=== PATIENT | male | born 1935 ===

== ENCOUNTER 2024-03-23 02:23 | Outpatient (REF) | payer MEDICARE, SELFPAY ==
[2024-03-23 09:42] LABS: Anion Gap 12.6; Carbon Dioxide 30.1 mmol/L (21.0-32.0); Chloride 97 mmol/L (98-107); Potassium 3.7 mmol/L (3.5-5.1); Sodium 136 mmol/L (136-145)
[2024-03-23 10:14] LABS: BUN Creatinine Ratio 45.2; Calcium 9.9 mg/dL (8.5-10.1); Estimated GFR (African America 37 (>=60); Estimated GFR (Non-African Ame 30 (>=60); Glucose 109 mg/dL (74-106)
== END 2024-03-23 02:24 | disposition home or self-care (01) ==
LOC: LAB 02:23
PROVIDERS: PCP Family Medicine; Visit Provider Family Medicine
DX: N17.9 Acute kidney failure, unspecified (principal)
CPT/HCPCS: 36415; 80048

== ENCOUNTER 2024-03-26 14:31 | Outpatient (OUT) | payer MEDICARE, SELFPAY | END 2024-03-26 14:32 | disposition home or self-care (01) | LOC: WC 14:31 | PROVIDERS: PCP Family Medicine; Visit Provider Physician Assistant | DX: L97.812 Non-pressure chronic ulcer of other part of right lower leg with fat layer exposed (principal) | CPT/HCPCS: G0463 ==

== ENCOUNTER 2024-04-16 16:10 | Outpatient (OUT) | payer MEDICARE, SELFPAY ==
--- OUTSIDE RECORDS SUMMARY | 2024-04-16 16:29 | XMS_ITS | CCD ---
Author Organization [facility] Care Team Providers Care Nurse Practitioner Adult Name Role Phone Mata Sepulveda PA-C Primary Care Provider MATA SEPULVEDA Attending Unavailable MATA SEPULVEDA Referring Unavailable MATA SEPULVEDA Primary Care Unavailable MATA SEPULVEDA Attending Unavailable MATA SEPULVEDA Referring Unavailable MATA SEPULVEDA Primary Care Unavailable MATA SEPULVEDA Attending Unavailable MATA SEPULVEDA Referring Unavailable WILVER, MATA Michael Primary Care Unavailable MATA SEPULVEDA Referring Unavailabl e SEPULVEDA, MATA FELIZ Primary Care Unavailabl e SEPULVEDAMATA Referring Unavailabl e SEPULVEDA, MATA FELIZ Primary Care Unavailabl e SEPULVEDA, MATA Michael Primary Care Unavailable RADHA VALLES Attending Unavailable WASHINGTON, SANTOSH Attending Unavailable SANTOSH VILA Referring Unavailable MATA SEPULVEDA Primary Care Unavailable MATA SEPULVEDA Primary Care Unavailable GABY MICHAEL Attending Unavailable FRANCESCA BRIGGS Admitting Unavailable BRADLEY TRIPLETT Consulting Unavailable ONLY), [facility] (INPATIENT Consult ing Unavailable GABY MICHAEL Attending Unavailable GABY MICHAEL Referring Unavailable MATA SEPULVEDA Primary Care Unavailable HILARY ADORNO Attending Unavailable HILARY ADORNO Referring Unavailable MATA SEPULVEDA Primary Care Unavailable HILARY ADORNO Attending Unavailable HILARY ADORNO Referring Unavailable MATA SEPULVEDA Primary Care Unavailable HILARY ADORNO Attending Unavailable HILARY ADORNO Referring Unavailable MATA SEPULVEDA Primary Care Unavailable VINCENT ROSADO Attending Unavailable MATA SEPULVEDA Referring Unavailable MATA SEPULVEDA Primary Care Unavailable Medications Current Medications Medication Drug Class(es) Dates Sig (Normalized) Sig (Original) amLODIPine 5 mg oral tablet (4 sources) Dihydropyridine Calcium Channel Nevaeh Start: 09-28-2023 take 1 tablet by mouth in the morning amLODIPine (NORVASC) 5 mg tablet Indications: Essential hypertension Take 1 tablet (5 mg total) by mouth in the morning. 30 tablet 5 08/11/2023 Active blood pressure monitor kit (3 sources) Start: 07-30-2022 blood pressure monitor kit 1 each by miscellaneous route in the morning and at bedtime for 30 days. 1 each 0 07/30/2022 Active folic acid/multivit-mi n/lutein (CENTRUM SILVER ORAL) (4 sources) take 1 tablet by mouth once in the morning folic acid/multivit-min/l utein (CENTRUM SILVER ORAL) Take 1 tablet by mouth in the morning. 0 Active furosemide 20 mg oral tablet (5 sources) Loop Diuretic Start: 11-28-2023 take 2 tablets by mouth once daily as needed furosemide (LASIX) 20 mg tablet Indications: Bilateral leg edema Take 2 tablets (40 mg total) by mouth daily as needed (swelling of ankles). 60 tablet 2 11/28/2023 Active Start: 08-11-2023 End: 11-28-2023 take 1 tablet by mouth once daily as needed furosemide (LASIX) 20 mg tablet Take 1 tablet (20 mg total) by mouth daily as needed (swelling of ankles). 30 tablet 2 08/11/2023 11/28/2023 Discontinued (Reorder) magnesium hydroxide 80 mg/ml oral suspension (4 sources) take 30 mL by mouth once daily as needed magnesium hydroxide (MILK OF MAGNESIA) 400 mg/5 mL suspension Take 30 mL by mouth nightly as needed. 0 Active metoprolol tartrate 50 mg oral tablet (4 sources) beta-Adrenergic Nevaeh Start: 10-21-20 take 1 tablet by mouth in the morning metoprolol tartrate (LOPRESSOR) 50 mg tablet TAKE 1 TABLET BY MOUTH IN THE MORNING AND 1 TABLET BEFORE BEDTIME 180 tablet 1 10/21/2023 Active polyethylene glycol 3350 73636 mg powder for oral solution (4 sources) Osmotic Laxative Start: 04-05-20 polyethylene glycol (GLYCOLAX) 17 gram packet Take 17 g by mouth daily as needed (constipation). 30 packet 0 04/05/2023 Active pravastatin sodium 40 mg oral tablet (5 sources) HMG-CoA Reductase Inhibitor Start: 05-05-20 End: 11-15-19 24 take 1 tablet by mouth in the morning pravastatin (PRAVACHOL) 40 mg tablet TAKE 1 TABLET BY MOUTH IN THE MORNING 90 tablet 3 11/15/2023 Active QUEtiapine 50 mg oral tablet (9 sources) Atypical Antipsychotic Start: 08-11-20 23 End: 04-24-20 24 take 1 tablet by mouth once daily QUEtiapine (SEROquel) 50 mg tablet TAKE ONE TABLET BY MOUTH ONCE NIGHTLY 90 tablet 1 01/25/2024 04/24/2024 Active Start: 08-11-2023 End: 01-25-2024 take 1 tablet by mouth once daily at breakfast QUEtiapine (SEROQUEL) 25 mg tablet Take 1 tablet (25 mg total) by mouth daily with breakfast. 30 tablet 5 08/11/2023 01/25/2024 Discontinued (Alternate therapy) Completed/Discontinued Medications Medication Drug Class(es) Dates Sig (Normalized) Sig (Original) lisinopril 40 mg oral tablet (1 source) Angiotensin Converting Enzyme Inhibitor Start: 10-27-2023 End: 11-10-2023 take 1 tablet by mouth in the morning lisinopriL (PRINIVIL,ZESTRIL) 40 mg tablet Indications: Essential hypertension TAKE 1 TABLET BY MOUTH IN THE MORNING 90 tablet 3 10/27/2023 11/10/2023 Discontinued (Therapy completed) Problems Active Problems Problem Classification Problem Date Documented Da te Episodic/Chronic Acute and unspecified renal failure (9 sources) Acute injury of kidney; Translations: [Acute kidney failure, unspecified] Onset: 06-13-2022 Resolved: 12-02-2022 03-30-2023 Episodic Acute myocardial infarction (4 sources) Myocardial infarction; Translations: [Non-ST elevation (NSTEMI) myocardial infarction] Onset: 07-16-2022 07-16-2022 Chronic Chronic kidney disease (1 source) Chronic kidney disease stage 3B ; Translations: [Stage 3b chronic kidney disease (CMS-HCC)] 11-28-2023 Chronic Chronic kidney disease (2 sources) Chronic kidney disease; Translations: [Chronic kidney disease, stage 3b] Onset: 11-28-2023 Delirium, dementia, and amnestic and other cognitive disorders (8 sources) Dementia with behavioral disturbance; Translations: [Dementia with behavioral disturbance] Onset: 07-16-2022 07-16-2022 Chronic Disorders of lipid metabolism (6 sources) Hyperlipidemia; Translations: [Hyperlipidemia, unspecified] Onset: 09-03-2015 06-20-2022 Chronic Essential hypertension (7 sources) Essential hypertension; Translations: [Essential (primary) hypertension] Onset: 09-03-2015 06-20-2022 Chronic Open wounds of extremities (3 sources) Unspecified open wound, right lower leg, initial encounter; Translations: [Unspecified open wound, right lower leg, initial encounter] Onset: 03-14-2024 Episodic Other connective tissue disease (1 source) Leg swelling symptom Onset: 03-14-2024 Episodic Other lower respiratory disease (1 source) Dyspnea on exertion; Translations: [Other forms of dyspnea] 11-10-2023 Episodic Other nervous system disorders (5 sources) Disorder of brain; Translations: [Encephalopathy, unspecified] Onset: 06-20-2022 06-20-2022 Chronic Other nervous system disorders (1 source) Encephalopathy, unspecified; Translations: [Encephalopathy, unspecified] Onset: 06-20-2022 Chronic Peripheral and visceral atherosclerosis (9 sources) Peripheral vascular disease; Translations: [Atherosclerosis of [place] arteries of extremities with intermittent claudication, unspecified extremity] Onset: 03-15-2017 06-20-2022 Chronic Pulmonary heart disease (5 sources) Pulmonary hypertension, unspecified; Translations: [Other chronic pulmonary heart diseases] Onset: 01-28-2022 06-20-2022 Chronic Residual codes; unclassified (2 sources) Bilateral lower limb edema; Translations: [Localized edema] 11-10-2023 Episodic Residual codes; unclassified (3 sources) Localized edema; Translations: [Localized edema] Onset: 03-14-2024 Episodic Residual codes; unclassified (1 source) Edema, unspecified; Translations: [Edema, unspecified] Onset: 03-15-2024 Episodic Skin and subcutaneous tissue infections (5 sources) Local infection of the skin and subcutaneous tissue, unspecified; Translations: [Cellulitis, unspecified] Onset: 03-14-2024 Episodic Unclassified (1 source) Unspecified dementia, unspecified severity, with other behavioral disturbance; Translations: [Unspecified dementia, unspecified severity, with other behavioral disturbance] Onset: 07-16-2022 Unclassified (1 source) medicare wellness Onset: 11-28-2023 Unclassified (1 source) Wound Check Onset: 03-30-2024 Past or Other Problems Problem Classification Problem Date Documented Date Episodic/Chronic Malaise and fatigue (4 sources) Asthenia; Translations: [Weakness] Onset: 07-16-2022 Resolved: 08-10-2022 08-10-2022 Episodic Mood disorders (4 sources) Mood disorders Onset: 05-05-2023 Resolved: 11-28-2023 05-05-2023 Nonspecific chest pain (4 sources) Chest pain; Translations: [Chest pain, unspecified] Onset: 11-10-2023 11-10-2023 Episodic Nutritional deficiencies (4 sources) Nutritional marasmus; Translations: [Unspecified severe protein-calorie malnutrition] Onset: 06-15-2022 Resolved: 11-25-2022 11-25-2022 Chronic Other connective tissue disease (1 source) Other specified soft tissue disorders; Translations: [Other specified soft tissue disorders] Onset: 11-10-2023 Episodic Other screening for suspected conditions (not mental disorders or infectious disease) (6 sources) Electrocardiogram abnormal; Translations: [Abnormal electrocardiogram [ECG] [EKG]] Onset: 10-22-2021 10-22-2021 Episodic Residual codes; unclassified (4 sources) History of colonoscopy; Translations: [Other specified postprocedural states] Onset: 04-06-2016 06-07-2019 Episodic Screening and history of mental health and substance abuse codes (4 sources) Personal history of nicotine dependence; Translations: [Personal history of tobacco use] Onset: 09-03-2015 06-07-2019 Episodic Results Test Name Value Interpretation Reference Range Facility CBC AND AUTO DIFFon 03-19-20 ABSOLUTE BASOPHIL 0.1 X10E9/L Normal 0.0-0.2 [facility] Comment on above: Performed By: #### C BCA, CMP, 09337-5, 02761-7, 79525-5 #### [facility] ([id number]) [address] [place] [address], [place] [address] ABSOLUTE NEUTROPHIL 4.9 X10E9/L Normal 1.5-6.6 [facility] Comment on above: Performed By: #### C BCA, CMP, 19249-3, 29628-2, 02756-8 #### [facility] ([id number]) [address] [place] [address] 57039 Basophils/100 WBC (Bld) 1.2 % Normal [facility] Comment on above: Performed By: #### C BCA, CMP, 24054-5, 61178-3, 65375-3 #### [facility] ([id number]) [address] [place] [address] 44123 Eosinophils (Bld) [#/Vol] 0.2 10*3/uL Normal 0.0-0.4 [facility] Comment on above: Performed By: #### C BCA, CMP, 76767-0, 00509-7, 77487-3 #### [facility] ([id number]) [address] [place] [address] 13052 Eosinophils/100 WBC (Bld) 1.8 % Normal [facility] Comment on above: Performed By: #### C BCA, CMP, 89353-6, 17421-1, 21994-2 #### [facility] ([id number]) [address] [place] [address] 58847 Erythrocyte distribution width (RBC) [Ratio] 13.6 % Normal 11.5-15.0 [facility] Comment on above: Performed By: #### C BCA, CMP, 13532-7, 87124-4, 53363-3 #### [facility] ([id number]) [address] [place] [address] 89209 Hematocrit (Bld) [Volume fraction] 42.8 % Normal 39-49 [facility] Comment on above: Performed By: #### C BCA, CMP, 24241-8, 02460-9, 92601-7 #### [facility] ([id number]) [address] [place] [address] 22069 Hemoglobin (Bld) [Mass/Vol] 14.7 g/dL Normal 13.0-17.0 [facility] Comment on above: Performed By: #### C BCA, CMP, 36702-3, 59707-2, 61684-9 #### [facility] ([id number]) [address] [place] [address] 91348 Lymphocytes (Bld) [#/Vol] 3.4 10*3/uL Normal 1.0-3.5 [facility] Comment on above: Performed By: #### C BCA, CMP, 22867-9, 22331-7, 13491-4 #### [facility] ([id number]) [address] [place] [address] 12698 Lymphocytes/100 WBC (Bld) 34.4 % Normal [facility] Comment on above: Performed By: #### C BCA, CMP, 54394-7, 33295-6, 48574-9 #### [facility] ([id number]) [address] [place] [address] 32453 MCH (RBC) [Entitic mass] 31.4 pg Normal 27-34 [facility] Comment on above: Performed By: #### C BCA, CMP, 98679-2, 35092-2, 81575-5 #### [facility] ([id number]) [address] [place] [address] 86984 MCHC (RBC) [Mass/Vol] 34.5 g/dL Normal 32-36 [facility] Comment on above: Performed By: #### C BCA, CMP, 72889-0, 18139-4, 30489-8 #### [facility] ([id number]) [address] [place] [address] 01452 MCV (RBC) [Entitic vol] 91 fL Normal 80-100 [facility] Comment on above: Performed By: #### C BCA, CMP, 86902-6, 97764-7, 22722-3 #### [facility] ([id number]) [address] [place] [address] [place] [address] Monocytes (Bld) [#/Vol] 1.2 10*3/uL High 0-0.9 [facility] Comment on above: Performed By: #### C BCA, CMP, 26640-9, 17217-7, 93298-8 #### [facility] ([id number]) [address] [place] [address] 47106 Monocytes/100 WBC (Bld) 12.3 % Normal [facility] Comment on above: Performed By: #### C BCA, CMP, 38175-0, 85635-0, 72564-2 #### [facility] ([id number]) [address] [place] [address] 96264 Neutrophils/100 WBC (Bld) 50.3 % Normal [facility] Comment on above: Performed By: #### Vijaya BCA, CMP, 76684-6, 27967-6, 26444-5 #### [facility] ([id number]) [address] [place] [address] 29571 Platelet mean volume (Bld) [Entitic vol] 8.2 fL Normal 7-12 [facility] Comment on above: Performed By: #### C BCA, CMP, 29898-9, 76642-8, 82901-7 #### [facility] ([id number]) [address] [place] [address] 80578 Platelets (Bld) [#/Vol] 276 10*3/uL Normal 150-450 [facility] Comment on above: Performed By: #### C BCA, CMP, 01371-4, 74711-4, 05266-4 #### [facility] ([id number]) [address] [place] [address] 30887 RBC COUNT 4.69 X10E12/L Normal 4.10-5.70 [facility] Comment on above: Performed By: #### C BCA, CMP, 41533-5, 39557-5, 11538-4 #### [facility] ([id number]) [address] [place] [address] 72585 WBC (Bld) [#/Vol] 9.8 10*3/uL Normal 4.0-11.0 [facility] Comment on above: Performed By: #### C BCA, CMP, 51582-6, 83054-3, 83532-0 #### [facility] ([id number]) [address] [place] [address] 80894 COMPREHENSIVE METABOLIC PANE Arthur 03-19-2024 Albumin [Mass/Vol] 3.8 g/dL Normal 3.2-5.3 [facility] Comment on above: Performed By: #### C BCA, CMP, 42267-5, 68056-0, 68059-3 #### [facility] ([id number]) [address] [place] [address] 40718 ALP [Catalytic activity/Vol] 104 U/L Normal 39-130 [facility] Comment on above: Performed By: #### C BCA, CMP, 54793-1, 57093-5, 21504-0 #### [facility] ([id number]) [address] [place] [address] 91629 ALT [Catalytic activity/Vol] 20 U/L Normal 0-40 [facility] Comment on above: Performed By: #### C BCA, CMP, 61525-7, 67839-6, 88066-7 #### [facility] ([id number]) [address] [place] [address] 59038 Anion gap [Moles/Vol] 14 mmol/L Normal 5-15 [facility] Comment on above: Performed By: #### C BCA, CMP, 60307-8, 50390-9, 07513-3 #### [facility] ([id number]) [address] [place] [address] 27990 AST [Catalytic activity/Vol] 25 U/L Normal 0-41 [facility] Comment on above: Performed By: #### C BCA, CMP, 81125-4, 39389-7, 67174-2 #### [facility] ([id number]) [address] [place] [address] 04234 Bilirubin [Mass/Vol] 1.0 mg/dL Normal 0.3-1.2 [facility] Comment on above: Performed By: #### C BCA, CMP, 59613-6, 26109-8, 74946-7 #### [facility] ([id number]) [address] [place] [address] 80892 Calcium [Mass/Vol] 9.4 mg/dL Normal 8.5-10.5 [facility] Comment on above: Performed By: #### C BCA, CMP, 19993-3, 78630-7, 54951-4 #### [facility] ([id number]) [address] [place] [address] 12402 Chloride [Moles/Vol] 94 mmol/L Low 98-109 [facility] Comment on above: Performed By: #### C BCA, CMP, 44839-1, 44523-5, 41571-3 #### [facility] ([id number]) [address] [place] [address] 84930 CO2 [Moles/Vol] 29 mmol/L Normal 22-32 [facility] Comment on above: Performed By: #### C BCA, CMP, 07395-1, 49667-5, 85997-6 #### [facility] ([id number]) [address] [place] [address] 76234 Creatinine [Mass/Vol] 1.93 mg/dL High 0.70-1.20 [facility] Comment on above: Result Comment: METH OD TRACEABLE TO IDMS STANDARD Performed By: #### C BCA, CMP, 97544-3, 74995-5, 58555-9 #### [facility] ([id number]) [address] [place] [address] 61502 GFR/1.73 sq M.predicted among non-blacks MDRD (S/P/Bld) [Vol rate/Area] 33 mL/min/{1.73_m2} Low >59 [facility] Comment on above: Result Comment: Reported eGFR is based on the CKD-EPI 2020 equation that does not use a race coefficient. Performed By: #### C BCA, CMP, 63966-8, 68645-9, 92602-7 #### [facility] ([id number]) [address] [place] [address] 66505 Glucose [Mass/Vol] 111 mg/dL High 65-99 [facility] Comment on above: Performed By: #### C BCA, CMP, 73364-4, 02271-6, 18149-1 #### [facility] ([id number]) [address] [place] [address] 94456 Potassium [Moles/Vol] 3.6 mmol/L Normal 3.5-5.0 [facility] Comment on above: Performed By: #### C BCA, CMP, 09410-3, 81706-6, 21264-8 #### [facility] ([id number]) [address] [place] [address] 47652 Protein [Mass/Vol] 8.3 g/dL High 6.0-8.0 [facility] Comment on above: Performed By: #### C BCA, CMP, 32475-8, 68229-5, 51525-5 #### [facility] ([id number]) [address] [place] [address] 09442 Sodium [Moles/Vol] 137 mmol/L Normal 134-146 [facility] Comment on above: Performed By: #### C BCA, CMP, 12038-8, 65687-0, 16705-6 #### [facility] ([id number]) [address] [place] [address] 65898 Urea nitrogen [Mass/Vol] 64 mg/dL High 5-27 [facility] Comment on above: Performed By: #### C BCA, CMP, 31153-0, 04711-9, 69180-3 #### [facility] ([id number]) [address] [place] [address] 33952 MAGNESIUMon 03-19-2024 Magnesium [Mass/Vol] 2.2 mg/dL Normal 1.8-2.6 [facility] Comment on above: Performed By: #### C BCA, CMP, 79196-6, 34296-8, 16329-4 #### [facility] ([id number]) [address] [place] [address] 29198 CBC AND AUTO DIFFon 03-18-20 ABSOLUTE BASOPHIL 0.1 X10E9/L Normal 0.0-0.2 [facility] Comment on above: Performed By: #### C BCA, CMP, 90971-4, 18610-6, 47113-4 #### [facility] ([id number]) [address] [place] [address] 26563 ABSOLUTE NEUTROPHIL 6.6 X10E9/L Normal 1.5-6.6 [facility] Comment on above: Performed By: #### C BCA, CMP, 84760-2, 28436-8, 16904-5 #### [facility] ([id number]) [address] [place] [address] 28009 Basophils/100 WBC (Bld) 0.6 % Normal [facility] Comment on above: Performed By: #### C BCA, CMP, 31139-0, 24721-2, 43192-3 #### [facility] ([id number]) [address] [place] [address] 94811 Eosinophils (Bld) [#/Vol] 0.1 10*3/uL Normal 0.0-0.4 [facility] Comment on above: Performed By: #### C BCA, CMP, 71369-7, 31438-1, 25135-8 #### [facility] ([id number]) [address] [place] [address] 21299 Eosinophils/100 WBC (Bld) 1.1 % Normal [facility] Comment on above: Performed By: #### C BCA, CMP, 23884-7, 37683-4, 27125-7 #### [facility] ([id number]) [address] [place] [address] 73284 Erythrocyte distribution width (RBC) [Ratio] 13.7 % Normal 11.5-15.0 [facility] Comment on above: Performed By: #### C BCA, CMP, 37156-5, 07841-4, 61337-0 #### [facility] ([id number]) [address] [place] [address] 60739 Hematocrit (Bld) [Volume fraction] 44.0 % Normal 39-49 [facility] Comment on above: Performed By: #### C BCA, CMP, 73528-5, 26844-7, 81862-2 #### [facility] ([id number]) [address] [place] [address] 32431 Hemoglobin (Bld) [Mass/Vol] 14.9 g/dL Normal 13.0-17.0 [facility] Comment on above: Performed By: #### C BCA, CMP, 77414-8, 92605-4, 02375-9 #### [facility] ([id number]) [address] [place] [address] 81599 Lymphocytes (Bld) [#/Vol] 4.0 10*3/uL High 1.0-3.5 [facility] Comment on above: Performed By: #### C BCA, CMP, 75614-0, 51863-2, 98066-1 #### [facility] ([id number]) [address] [place] [address] 66331 Lymphocytes/100 WBC (Bld) 32.4 % Normal [facility] Comment on above: Performed By: #### C BCA, CMP, 00428-7, 40400-4, 03910-2 #### [facility] ([id number]) [address] [place] [address] 98293 MCH (RBC) [Entitic mass] 30.8 pg Normal 27-34 [facility] Comment on above: Performed By: #### C BCA, CMP, 96737-6, 78142-0, 82196-0 #### [facility] ([id number]) [address] [place] [address] 72399 MCHC (RBC) [Mass/Vol] 33.8 g/dL Normal 32-36 [facility] Comment on above: Performed By: #### Vijaya BCA, CMP, 08776-2, 15969-6, 99729-5 #### [facility] ([id number]) [address] [place] [address] 34679 MCV (RBC) [Entitic vol] 91 fL Normal 80-100 [facility] Comment on above: Performed By: #### Vijaya BCA, CMP, 95331-4, 89474-9, 64019-4 #### [facility] ([id number]) [address] [place] [address] 52882 Monocytes (Bld) [#/Vol] 1.4 10*3/uL High 0-0.9 [facility] Comment on above: Performed By: #### Vijaya BCA, CMP, 47806-6, 31763-9, 34898-4 #### [facility] ([id number]) [address] [place] [address] 25631 Monocytes/100 WBC (Bld) 11.4 % Normal [facility] Comment on above: Performed By: #### Vijaya BCA, CMP, 61371-7, 15335-3, 83039-2 #### [facility] ([id number]) [address] [place] [address] 47428 Neutrophils/100 WBC (Bld) 54.5 % Normal [facility] Comment on above: Performed By: #### C BCA, CMP, 91554-2, 46485-8, 93984-0 #### [facility] ([id number]) [address] [place] [address] 03218 Platelet mean volume (Bld) [Entitic vol] 8.6 fL Normal 7-12 [facility] Comment on above: Performed By: #### C BCA, CMP, 54664-2, 79661-1, 98935-4 #### [facility] ([id number]) [address] [place] [address] 73458 Platelets (Bld) [#/Vol] 280 10*3/uL Normal 150-450 [facility] Comment on above: Performed By: #### C BCA, CMP, 93730-6, 91167-9, 28101-9 #### [facility] ([id number]) [address] [place] [address] 30449 RBC COUNT 4.84 X10E12/L Normal 4.10-5.70 [facility] Comment on above: Performed By: #### C BCA, CMP, 00902-4, 14451-5, 82301-7 #### [facility] ([id number]) [address] [place] [address] 38336 WBC (Bld) [#/Vol] 12.2 10*3/uL High 4.0-11.0 [facility] Comment on above: Performed By: #### C BCA, CMP, 09600-2, 53433-0, 70891-0 #### [facility] [facility] ([id number]) [address] [place] [address] 93139 COMPREHENSIVE METABOLIC PANE Arthur 03-18-2024 Albumin [Mass/Vol] 4.1 g/dL Normal 3.2-5.3 [facility] Comment on above: Performed By: #### C BCA, CMP, 91423-0, 84591-9, 88494-3 #### [facility] ([id number]) [address] [place] [address] 65714 ALP [Catalytic activity/Vol] 105 U/L Normal 39-130 [facility] Comment on above: Performed By: #### C BCA, CMP, 90507-2, 48375-6, 09704-2 #### [facility] ([id number]) [address] [place] [address] 67421 ALT [Catalytic activity/Vol] 17 U/L Normal 0-40 [facility] Comment on above: Performed By: #### C BCA, CMP, 12158-4, 96917-9, 99202-3 #### [facility] ([id number]) [address] [place] [address] 90977 Anion gap [Moles/Vol] 17 mmol/L High 5-15 [facility] Comment on above: Performed By: #### C BCA, CMP, 75056-0, 64487-9, 01578-4 #### [facility] ([id number]) [address] [place] [address] 72241 AST [Catalytic activity/Vol] 30 U/L Normal 0-41 [facility] Comment on above: Performed By: #### C BCA, CMP, 27920-2, 31553-3, 79514-5 #### [facility] ([id number]) [address] [place] [address] 67697 Bilirubin [Mass/Vol] 1.2 mg/dL Normal 0.3-1.2 [facility] Comment on above: Performed By: #### C BCA, CMP, 04641-0, 20692-3, 58116-2 #### [facility] ([id number]) [address] [place] [address] 40214 Calcium [Mass/Vol] 9.7 mg/dL Normal 8.5-10.5 [facility] Comment on above: Performed By: #### C BCA, CMP, 66050-3, 55583-1, 34316-1 #### [facility] ([id number]) [address] [place] [address] 99005 Chloride [Moles/Vol] 94 mmol/L Low 98-109 [facility] Comment on above: Performed By: #### C BCA, CMP, 77555-4, 70117-3, 95787-6 #### [facility] ([id number]) [address] [place] [address] 32132 CO2 [Moles/Vol] 29 mmol/L Normal 22-32 [facility] Comment on above: Performed By: #### C BCA, CMP, 42736-6, 18455-6, 64833-2 #### [facility] ([id number]) [address] [place] [address] 12849 Creatinine [Mass/Vol] 1.98 mg/dL High 0.70-1.20 [facility] Comment on above: Result Comment: METH OD TRACEABLE TO IDMS STANDARD Performed By: #### C BCA, CMP, 46560-0, 27555-0, 43785-7 #### [facility] ([id number]) [address] [place] [address] 53258 GFR/1.73 sq M.predicted among non-blacks MDRD (S/P/Bld) [Vol rate/Area] 32 mL/min/{1.73_m2} Low >59 [facility] Comment on above: Result Comment: Reported eGFR is based on the CKD-EPI 2020 equation that does not use a race coefficient. Performed By: #### C BCA, CMP, 43706-2, 02877-8, 26442-0 #### [facility] ([id number]) [address] [place] [address] 62352 Glucose [Mass/Vol] 124 mg/dL High 65-99 [facility] Comment on above: Performed By: #### C BCA, CMP, 10246-2, 30578-6, 43334-0 #### [facility] ([id number]) [address] [place] [address] 52684 Potassium [Moles/Vol] 4.3 mmol/L Normal 3.5-5.0 [facility] Comment on above: Performed By: #### C BCA, CMP, 20403-2, 53832-6, 16231-5 #### [facility] ([id number]) [address] [place] [address] 47435 Protein [Mass/Vol] 8.5 g/dL High 6.0-8.0 [facility] Comment on above: Performed By: #### C BCA, CMP, 75946-2, 06217-7, 00175-4 #### [facility] ([id number]) [address] [place] [address] 46210 Sodium [Moles/Vol] 140 mmol/L Normal 134-146 [facility] Comment on above: Performed By: #### C BCA, CMP, 18191-2, 06568-0, 62073-9 #### [facility] ([id number]) [address] [place] [address] 87611 Urea nitrogen [Mass/Vol] 57 mg/dL High 5-27 [facility] Comment on above: Performed By: #### C BCA, CMP, 65379-3, 37367-8, 50517-4 #### [facility] ([id number]) [address] [place] [address] 46159 MAGNESIUMon 03-18-2024 Magnesium [Mass/Vol] 2.1 mg/dL Normal 1.8-2.6 [facility] Comment on above: Performed By: #### C BCA, CMP, 77775-7, 46583-4, 07461-9 #### [facility] ([id number]) [address] [place] [address] 86515 CBC AND AUTO DIFFon 03-17-20 24 ABSOLUTE BASOPHIL 0.1 X10E9/L Normal 0.0-0.2 [facility] Comment on above: Performed By: #### C BCA, CMP, 95504-1, 63524-9, 54140-1 #### [facility] ([id number]) [address] [place] [address] 74495 ABSOLUTE NEUTROPHIL 4.5 X10E9/L Normal 1.5-6.6 [facility] Comment on above: Performed By: #### C BCA, CMP, 89709-8, 41948-4, 19794-6 #### [facility] ([id number]) [address] [place] [address] 64538 Basophils/100 WBC (Bld) 0.6 % Normal [facility] Comment on above: Performed By: #### C BCA, CMP, 34997-6, 84484-2, 01497-1 #### [facility] ([id number]) [address] [place] [address] 35338 Eosinophils (Bld) [#/Vol] 0.2 10*3/uL Normal 0.0-0.4 [facility] Comment on above: Performed By: #### C BCA, CMP, 26621-6, 46755-2, 02370-5 #### [facility] ([id number]) [address] [place] [address] 04819 Eosinophils/100 WBC (Bld) 2.3 % Normal [facility] Comment on above: Performed By: #### C BCA, CMP, 34604-4, 13572-2, 40079-3 #### [facility] ([id number]) [address] [place] [address] 21311 Erythrocyte distribution width (RBC) [Ratio] 13.9 % Normal 11.5-15.0 [facility] Comment on above: Performed By: #### C BCA, CMP, 27427-2, 88105-3, 53503-0 #### [facility] ([id number]) [address] [place] [address] 32916 Hematocrit (Bld) [Volume fraction] 40.3 % Normal 39-49 [facility] Comment on above: Performed By: #### C BCA, CMP, 66056-6, 07999-7, 01926-4 #### [facility] ([id number]) [address] [place] [address] 59565 Hemoglobin (Bld) [Mass/Vol] 13.8 g/dL Normal 13.0-17.0 [facility] Comment on above: Performed By: #### C BCA, CMP, 74353-9, 48820-6, 45787-4 #### [facility] ([id number]) [address] [place] [address] 13140 Lymphocytes (Bld) [#/Vol] 3.5 10*3/uL Normal 1.0-3.5 [facility] Comment on above: Performed By: #### C BCA, CMP, 31597-6, 60363-6, 78016-9 #### [facility] ([id number]) [address] [place] [address] 72024 Lymphocytes/100 WBC (Bld) 37.5 % Normal [facility] Comment on above: Performed By: #### C BCA, CMP, 00876-5, 56644-2, 40562-8 #### [facility] ([id number]) [address] [place] [address] 20611 MCH (RBC) [Entitic mass] 31.2 pg Normal 27-34 [facility] Comment on above: Performed By: #### C BCA, CMP, 81563-4, 48806-1, 54964-5 #### [facility] ([id number]) [address] [place] [address] 05585 MCHC (RBC) [Mass/Vol] 34.3 g/dL Normal 32-36 [facility] Comment on above: Performed By: #### Vijaya BCA, CMP, 55672-8, 54450-8, 64582-0 #### [facility] ([id number]) [address] [place] [address] 06670 MCV (RBC) [Entitic vol] 91 fL Normal 80-100 [facility] Comment on above: Performed By: #### Vijaya BCA, CMP, 36627-5, 91683-0, 40581-9 #### [facility] ([id number]) [address] [place] [address] 80714 Monocytes (Bld) [#/Vol] 1.1 10*3/uL High 0-0.9 [facility] Comment on above: Performed By: #### Vijaya BCA, CMP, 71654-4, 06491-0, 99335-4 #### [facility] ([id number]) [address] [place] [address] 36049 Monocytes/100 WBC (Bld) 11.9 % Normal [facility] Comment on above: Performed By: #### Vijaya BCA, CMP, 28458-0, 22406-1, 10703-1 #### [facility] ([id number]) [address] [place] [address] 79562 Neutrophils/100 WBC (Bld) 47.7 % Normal [facility] Comment on above: Performed By: #### Vijaya BCA, CMP, 67281-8, 54437-2, 06873-7 #### [facility] ([id number]) [address] [place] [address] 90028 Platelet mean volume (Bld) [Entitic vol] 8.6 fL Normal 7-12 [facility] Comment on above: Performed By: #### C BCA, CMP, 79759-0, 24603-0, 08181-3 #### [facility] ([id number]) [address] [place] [address] 64075 Platelets (Bld) [#/Vol] 252 10*3/uL Normal 150-450 [facility] Comment on above: Performed By: #### C BCA, CMP, 42757-2, 53946-9, 54443-1 #### [facility] ([id number]) [address] [place] [address] 92612 RBC COUNT 4.42 X10E12/L Normal 4.10-5.70 [facility] Comment on above: Performed By: #### C BCA, CMP, 97938-8, 47324-7, 52525-6 #### [facility] ([id number]) [address] [place] [address] 79424 WBC (Bld) [#/Vol] 9.4 10*3/uL Normal 4.0-11.0 [facility] Comment on above: Performed By: #### C BCA, CMP, 42154-3, 40524-6, 54679-3 #### [facility] ([id number]) [address] [place] [address] 24625 COMPREHENSIVE METABOLIC PANE Arthur 03-17-2024 Albumin [Mass/Vol] 3.9 g/dL Normal 3.2-5.3 [facility] Comment on above: Performed By: #### C BCA, CMP, 00460-3, 49358-1, 98601-6 #### [facility] ([id number]) [address] [place] [address] 34739 ALP [Catalytic activity/Vol] 101 U/L Normal 39-130 [facility] Comment on above: Performed By: #### C BCA, CMP, 25024-0, 47192-9, 74444-0 #### [facility] ([id number]) [address] [place] [address] 81278 ALT [Catalytic activity/Vol] 15 U/L Normal 0-40 [facility] Comment on above: Performed By: #### C BCA, CMP, 81708-3, 95846-8, 77093-7 #### [facility] ([id number]) [address] [place] [address] 35367 Anion gap [Moles/Vol] 11 mmol/L Normal 5-15 [facility] Comment on above: Performed By: #### C BCA, CMP, 56073-6, 37622-6, 66391-8 #### [facility] ([id number]) [address] [place] [address] 60839 AST [Catalytic activity/Vol] 24 U/L Normal 0-41 [facility] Comment on above: Performed By: #### C BCA, CMP, 25537-7, 03706-9, 45231-1 #### [facility] ([id number]) [address] [place] [address] 52849 Bilirubin [Mass/Vol] 1.2 mg/dL Normal 0.3-1.2 [facility] Comment on above: Performed By: #### C BCA, CMP, 31730-1, 55426-0, 74390-9 #### [facility] ([id number]) [address] [place] [address] 07468 Calcium [Mass/Vol] 9.2 mg/dL Normal 8.5-10.5 [facility] Comment on above: Performed By: #### C BCA, CMP, 14254-6, 50816-8, 44076-6 #### [facility] ([id number]) [address] [place] [address] 82662 Chloride [Moles/Vol] 94 mmol/L Low 98-109 [facility] Comment on above: Performed By: #### C BCA, CMP, 17734-1, 37528-8, 33228-6 #### [facility] ([id number]) [address] [place] [address] 71047 CO2 [Moles/Vol] 30 mmol/L Normal 22-32 [facility] Comment on above: Performed By: #### C BCA, CMP, 94621-8, 19667-8, 94087-7 #### [facility] ([id number]) [address] [place] [address] 19686 Creatinine [Mass/Vol] 1.93 mg/dL High 0.70-1.20 [facility] Comment on above: Result Comment: METH OD TRACEABLE TO IDMS STANDARD Performed By: #### C BCA, CMP, 22712-9, 53853-6, 00870-6 #### [facility] ([id number]) [address] [place] [address] 92847 GFR/1.73 sq M.predicted among non-blacks MDRD (S/P/Bld) [Vol rate/Area] 33 mL/min/{1.73_m2} Low >59 [facility] Comment on above: Result Comment: Reported eGFR is based on the CKD-EPI 2020 equation that does not use a race coefficient. Performed By: #### C BCA, CMP, 73592-5, 75463-7, 91511-9 #### [facility] ([id number]) [address] [place] [address] 98792 Glucose [Mass/Vol] 113 mg/dL High 65-99 [facility] Comment on above: Performed By: #### C BCA, CMP, 46140-0, 12626-6, 20931-7 #### [facility] ([id number]) [address] [place] [address] 61570 Potassium [Moles/Vol] 3.7 mmol/L Normal 3.5-5.0 [facility] Comment on above: Performed By: #### C BCA, CMP, 89013-8, 56007-1, 27795-9 #### [facility] ([id number]) [address] [place] [address] 36544 Protein [Mass/Vol] 8.1 g/dL High 6.0-8.0 [facility] Comment on above: Performed By: #### C BCA, CMP, 40022-3, 79477-2, 16337-8 #### [facility] ([id number]) [address] [place] [address] 84047 Sodium [Moles/Vol] 135 mmol/L Normal 134-146 [facility] Comment on above: Performed By: #### C BCA, CMP, , 44106-0, 33625-3 #### [facility] ([id number]) [address] [place] [address] 75426 Urea nitrogen [Mass/Vol] 49 mg/dL High 5-27 [facility] Comment on above: Performed By: #### C BCA, CMP, , 03806-2, 08986-8 #### [facility] ([id number]) [address] [place] [address] 06108 MAGNESIUMon 03-17-2024 Magnesium [Mass/Vol] 1.9 mg/dL Normal 1.8-2.6 [facility] Comment on above: Performed By: #### C BCA, CMP, , 08280-0, 71196-5 #### [facility] ([id number]) [address] [place] [address] 92893 POTASSIUMon 03-17-2024 Potassium [Moles/Vol] 3.9 mmol/L Normal 3.5-5.0 [facility] Comment on above: Performed By: #### C BCA, CMP, 67752-0, 57671-3, 69559-5 #### [facility] ([id number]) [address] [place] [address] 28725 CBC AND AUTO DIFFon 03-16-20 24 ABSOLUTE BASOPHIL 0.0 X10E9/L Normal 0.0-0.2 [facility] Comment on above: Performed By: #### C BCA, CMP, 99059-7, 22809-9, 97155-4 #### [facility] ([id number]) [address] [place] [address] 15485 ABSOLUTE NEUTROPHIL 6.0 X10E9/L Normal 1.5-6.6 [facility] Comment on above: Performed By: #### C BCA, CMP, 50991-4, 46954-5, 48216-9 #### [facility] ([id number]) [address] [place] [address] 45305 Basophils/100 WBC (Bld) 0.4 % Normal [facility] Comment on above: Performed By: #### Vijaay BCA, CMP, 77567-7, 55010-7, 81864-1 #### [facility] ([id number]) [address] [place] [address] 96801 Eosinophils (Bld) [#/Vol] 0.1 10*3/uL Normal 0.0-0.4 [facility] Comment on above: Performed By: #### Vijaya BCA, CMP, 66888-1, 94954-1, 79398-2 #### [facility] ([id number]) [address] [place] [address] 33068 Eosinophils/100 WBC (Bld) 0.6 % Normal [facility] Comment on above: Performed By: #### C BCA, CMP, 60748-8, 09898-7, 10797-5 #### [facility] ([id number]) [address] [place] [address] 52135 Erythrocyte distribution width (RBC) [Ratio] 13.9 % Normal 11.5-15.0 [facility] Comment on above: Performed By: #### C BCA, CMP, 37824-6, 89801-2, 45660-9 #### [facility] ([id number]) [address] [place] [address] 80364 Hematocrit (Bld) [Volume fraction] 38.0 % Low 39-49 [facility] Comment on above: Performed By: #### C BCA, CMP, 59547-0, 10256-4, 21112-2 #### [facility] ([id number]) [address] [place] [address] 95726 Hemoglobin (Bld) [Mass/Vol] 13.2 g/dL Normal 13.0-17.0 [facility] Comment on above: Performed By: #### C BCA, CMP, 61990-1, 45031-1, 58901-7 #### [facility] ([id number]) [address] [place] [address] 70079 Lymphocytes (Bld) [#/Vol] 3.1 10*3/uL Normal 1.0-3.5 [facility] Comment on above: Performed By: #### C BCA, CMP, 71135-7, 25236-6, 31520-9 #### [facility] ([id number]) [address] [place] [address] 40949 Lymphocytes/100 WBC (Bld) 29.5 % Normal [facility] Comment on above: Performed By: #### C BCA, CMP, 94277-9, 49408-4, 22207-6 #### [facility] ([id number]) [address] [place] [address] 28654 MCH (RBC) [Entitic mass] 31.5 pg Normal 27-34 [facility] Comment on above: Performed By: #### C BCA, CMP, 54343-6, 94665-0, 06690-1 #### [facility] ([id number]) [address] [place] [address] 35496 MCHC (RBC) [Mass/Vol] 34.8 g/dL Normal 32-36 [facility] Comment on above: Performed By: #### C BCA, CMP, 27269-9, 10873-2, 54360-7 #### [facility] ([id number]) [address] [place] [address] 54155 MCV (RBC) [Entitic vol] 90 fL Normal 80-100 [facility] Comment on above: Performed By: #### C BCA, CMP, 74440-5, 32154-5, 68706-0 #### [facility] ([id number]) [address] [place] [address] 23598 Monocytes (Bld) [#/Vol] 1.2 10*3/uL High 0-0.9 [facility] Comment on above: Performed By: #### C BCA, CMP, 67744-7, 80995-4, 34533-8 #### [facility] ([id number]) [address] [place] [address] 00282 Monocytes/100 WBC (Bld) 11.6 % Normal [facility] Comment on above: Performed By: #### C BCA, CMP, 40503-6, 17500-3, 35374-4 #### [facility] ([id number]) [address] [place] [address] 15822 Neutrophils/100 WBC (Bld) 57.9 % Normal [facility] Comment on above: Performed By: #### C BCA, CMP, 42782-1, 44242-0, 79633-8 #### [facility] ([id number]) [address] [place] [address] 60180 Platelet mean volume (Bld) [Entitic vol] 8.4 fL Normal 7-12 [facility] Comment on above: Performed By: #### C BCA, CMP, 79152-5, 88126-8, 28342-0 #### [facility] ([id number]) [address] [place] [address] 63372 Platelets (Bld) [#/Vol] 253 10*3/uL Normal 150-450 [facility] Comment on above: Performed By: #### C BCA, CMP, 75556-7, 53996-2, 42766-4 #### [facility] ([id number]) [address] [place] [address] 87517 RBC COUNT 4.21 X10E12/L Normal 4.10-5.70 [facility] Comment on above: Performed By: #### C BCA, CMP, 80948-0, 50683-0, 09013-1 #### [facility] ([id number]) [address] [place] [address] 04946 WBC (Bld) [#/Vol] 10.4 10*3/uL Normal 4.0-11.0 [facility] Comment on above: Performed By: #### C BCA, CMP, 67471-8, 50895-5, 06937-5 #### [facility] ([id number]) [address] [place] [address] 73457 COMPREHENSIVE METABOLIC PANE Arthur 03-16-2024 Albumin [Mass/Vol] 3.9 g/dL Normal 3.2-5.3 [facility] Comment on above: Performed By: #### C BCA, CMP, 70255-8, 25792-4, 47036-6 #### [facility] ([id number]) [address] [place] [address] 47103 ALP [Catalytic activity/Vol] 95 U/L Normal 39-130 [facility] Comment on above: Performed By: #### C BCA, CMP, 79219-6, 23992-1, 22218-6 #### [facility] ([id number]) [address] [place] [address] 30418 ALT [Catalytic activity/Vol] 13 U/L Normal 0-40 [facility] Comment on above: Performed By: #### C BCA, CMP, 58395-6, 66835-4, 34139-0 #### [facility] ([id number]) [address] [place] [address] 81406 Anion gap [Moles/Vol] 12 mmol/L Normal 5-15 [facility] Comment on above: Performed By: #### C BCA, CMP, 43493-5, 47384-6, 43683-4 #### [facility] ([id number]) [address] [place] [address] 81632 AST [Catalytic activity/Vol] 23 U/L Normal 0-41 [facility] Comment on above: Performed By: #### C BCA, CMP, 22173-1, 88638-6, 72795-2 #### [facility] ([id number]) [address] [place] [address] 69723 Bilirubin [Mass/Vol] 1.2 mg/dL Normal 0.3-1.2 [facility] Comment on above: Performed By: #### C BCA, CMP, 99028-6, 57181-1, 21617-1 #### [facility] ([id number]) [address] [place] [address] 29018 Calcium [Mass/Vol] 9.1 mg/dL Normal 8.5-10.5 [facility] Comment on above: Performed By: #### C BCA, CMP, 94436-5, 77296-8, 19036-8 #### [facility] ([id number]) [address] [place] [address] 49885 Chloride [Moles/Vol] 98 mmol/L Normal 98-109 [facility] Comment on above: Performed By: #### C BCA, CMP, 88658-3, 11247-5, 25853-8 #### [facility] ([id number]) [address] [place] [address] 44784 CO2 [Moles/Vol] 28 mmol/L Normal 22-32 [facility] Comment on above: Performed By: #### C BCA, CMP, 17785-3, 59367-7, 82405-7 #### [facility] ([id number]) [address] [place] [address] 20447 Creatinine [Mass/Vol] 1.67 mg/dL High 0.70-1.20 [facility] Comment on above: Result Comment: METH OD TRACEABLE TO IDMS STANDARD Performed By: #### C BCA, CMP, 66722-5, 97782-0, 35941-3 #### [facility] ([id number]) [address] [place] [address] 03830 GFR/1.73 sq M.predicted among non-blacks MDRD (S/P/Bld) [Vol rate/Area] 39 mL/min/{1.73_m2} Low >59 [facility] Comment on above: Result Comment: Reported eGFR is based on the CKD-EPI 2020 equation that does not use a race coefficient. Performed By: #### C CHARI, CMP, 64084-5, 05000-6, 41321-6 #### [facility] ([id number]) [address] [place] [address] 59151 Glucose [Mass/Vol] 122 mg/dL High 65-99 [facility] Comment on above: Performed By: #### C BCA, CMP, 37877-7, 20343-9, 89407-9 #### [facility] ([id number]) [address] [place] [address] 94338 Potassium [Moles/Vol] 3.9 mmol/L Normal 3.5-5.0 [facility] Comment on above: Performed By: #### C BCA, CMP, 94650-4, 09069-6, 43122-2 #### [facility] ([id number]) [address] [place] [address] 88237 Protein [Mass/Vol] 7.5 g/dL Normal 6.0-8.0 [facility] Comment on above: Performed By: #### C BCA, CMP, 89303-9, 00682-7, 21929-7 #### [facility] ([id number]) [address] [place] [address] 33957 Sodium [Moles/Vol] 138 mmol/L Normal 134-146 [facility] Comment on above: Performed By: #### C BCA, CMP, 40743-5, 12174-2, 39395-5 #### [facility] ([id number]) [address] [place] [address] 88612 Urea nitrogen [Mass/Vol] 44 mg/dL High 5-27 [facility] Comment on above: Performed By: #### C BCA, CMP, , 46854-4, 11632-9 #### [facility] ([id number]) [address] [place] [address] 10179 MAGNESIUMon 03-16-2024 Magnesium [Mass/Vol] 1.9 mg/dL Normal 1.8-2.6 [facility] Comment on above: Performed By: #### C BCA, CMP, , 85722-5, 48569-5 #### [facility] ([id number]) [address] [place] [address] 72294 CBC AND AUTO DIFFon 03-15-20 24 ABSOLUTE BASOPHIL 0.1 X10E9/L Normal 0.0-0.2 [facility] [facility] Comment on above: Performed By: #### C BCA, CMP, 32129-8, 28356-2, 04693-3 #### [facility] ([id number]) [address] [place] [address] 80638 ABSOLUTE NEUTROPHIL 5.1 X10E9/L Normal 1.5-6.6 [facility] Comment on above: Performed By: #### C BCA, CMP, 07221-8, 94975-4, 18499-6 #### [facility] ([id number]) [address] [place] [address] 99360 Basophils/100 WBC (Bld) 0.6 % Normal [facility] Comment on above: Performed By: #### C BCA, CMP, 78631-3, 24731-3, 81756-7 #### [facility] ([id number]) [address] [place] [address] 89548 Eosinophils (Bld) [#/Vol] 0.1 10*3/uL Normal 0.0-0.4 [facility] Comment on above: Performed By: #### C BCA, CMP, 98345-1, 51933-5, 18999-9 #### [facility] ([id number]) [address] [place] [address] 26636 Eosinophils/100 WBC (Bld) 0.8 % Normal [facility] Comment on above: Performed By: #### C BCA, CMP, 44458-4, 44230-4, 60190-6 #### [facility] ([id number]) [address] [place] [address] 34363 Erythrocyte distribution width (RBC) [Ratio] 13.7 % Normal 11.5-15.0 [facility] Comment on above: Performed By: #### C BCA, CMP, 04997-7, 03649-1, 03614-2 #### [facility] ([id number]) [address] [place] [address] 01629 Hematocrit (Bld) [Volume fraction] 38.5 % Low 39-49 [facility] Comment on above: Performed By: #### C BCA, CMP, 41614-5, 47823-2, 68513-7 #### [facility] ([id number]) [address] [place] [address] 12259 Hemoglobin (Bld) [Mass/Vol] 13.4 g/dL Normal 13.0-17.0 [facility] Comment on above: Performed By: #### C BCA, CMP, 90439-8, 46687-6, 58230-9 #### [facility] ([id number]) [address] [place] [address] 62466 Lymphocytes (Bld) [#/Vol] 2.8 10*3/uL Normal 1.0-3.5 [facility] Comment on above: Performed By: #### C BCA, CMP, 30538-2, 31536-7, 02703-0 #### [facility] ([id number]) [address] [place] [address] 61422 Lymphocytes/100 WBC (Bld) 31.9 % Normal [facility] Comment on above: Performed By: #### C BCA, CMP, 51466-1, 08860-5, 36955-4 #### [facility] ([id number]) [address] [place] [address] 18043 MCH (RBC) [Entitic mass] 31.6 pg Normal 27-34 [facility] Comment on above: Performed By: #### C BCA, CMP, 53323-0, 29968-3, 95921-2 #### [facility] ([id number]) [address] [place] [address] 63718 MCHC (RBC) [Mass/Vol] 34.8 g/dL Normal 32-36 [facility] Comment on above: Performed By: #### C BCA, CMP, 81578-2, 16434-5, 18434-3 #### [facility] ([id number]) [address] [place] [address] 09690 MCV (RBC) [Entitic vol] 91 fL Normal 80-100 [facility] Comment on above: Performed By: #### C BCA, CMP, 05476-7, 35401-1, 88929-2 #### [facility] ([id number]) [address] [place] [address] 87262 Monocytes (Bld) [#/Vol] 0.9 10*3/uL Normal 0-0.9 [facility] Comment on above: Performed By: #### C BCA, CMP, 02908-8, 44066-4, 19635-8 #### [facility] ([id number]) [address] [place] [address] 31186 Monocytes/100 WBC (Bld) 9.7 % Normal [facility] Comment on above: Performed By: #### C BCA, CMP, 24059-2, 51883-6, 52356-4 #### [facility] ([id number]) [address] [place] [address] 71062 Neutrophils/100 WBC (Bld) 57.0 % Normal [facility] Comment on above: Performed By: #### C BCA, CMP, 72880-5, 94916-0, 49254-4 #### [facility] ([id number]) [address] [place] [address] 23442 Platelet mean volume (Bld) [Entitic vol] 8.8 fL Normal 7-12 [facility] Comment on above: Performed By: #### C BCA, CMP, 12053-5, 83086-5, 60334-1 #### [facility] ([id number]) [address] [place] [address] 34370 Platelets (Bld) [#/Vol] 247 10*3/uL Normal 150-450 [facility] Comment on above: Performed By: #### C BCA, CMP, 46406-1, 64826-2, 84647-2 #### [facility] ([id number]) [address] [place] [address] 70736 RBC COUNT 4.24 X10E12/L Normal 4.10-5.70 [facility] Comment on above: Performed By: #### C BCA, CMP, 86630-5, 10581-2, 77032-2 #### [facility] ([id number]) [address] [place] [address] 84124 WBC (Bld) [#/Vol] 8.9 10*3/uL Normal 4.0-11.0 [facility] Comment on above: Performed By: #### C BCA, CMP, 09770-4, 02413-5, 53965-2 #### [facility] ([id number]) [address] [place] [address] 28908 COMPLEMENT PROFILEon 024 COMPLEMENT C3 158 mg/dL Normal 86-184 [facility] Comment on above: Performed By: #### C BCA, CMP, 83078-7, 87344-6, 10801-3 #### [facility] ([id number]) [address] [place] [address] 14932 COMPLEMENT C4 36 mg/dL Normal 16-47 [facility] Comment on above: Performed By: #### C BCA, CMP, 00167-9, 96580-3, 35014-3 #### [facility] ([id number]) [address] [place] [address] 20807 COMPREHENSIVE METABOLIC PANE [facility] 03-15-2024 Albumin [Mass/Vol] 3.8 g/dL Normal 3.2-5.3 [facility] Comment on above: Performed By: #### C BCA, CMP, 74827-8, 17963-2, 78474-0 #### [facility] ([id number]) [address] [place] [address] 65269 ALP [Catalytic activity/Vol] 103 U/L Normal 39-130 [facility] Comment on above: Performed By: #### C BCA, CMP, 17898-8, 37517-8, 20283-5 #### [facility] ([id number]) [address] [place] [address] 45446 ALT [Catalytic activity/Vol] 13 U/L Normal 0-40 [facility] Comment on above: Performed By: #### C BCA, CMP, 77700-5, 57412-1, 27424-9 #### [facility] ([id number]) [address] [place] [address] 17817 Anion gap [Moles/Vol] 14 mmol/L Normal 5-15 [facility] Comment on above: Performed By: #### C BCA, CMP, 89038-1, 28423-0, 64938-1 #### [facility] ([id number]) [address] [place] [address] 63177 AST [Catalytic activity/Vol] 20 U/L Normal 0-41 [facility] Comment on above: Performed By: #### C BCA, CMP, 20722-9, 03670-3, 65125-1 #### [facility] ([id number]) [address] [place] [address] 03002 Bilirubin [Mass/Vol] 1.3 mg/dL High 0.3-1.2 [facility] Comment on above: Performed By: #### C BCA, CMP, 42645-8, 26029-8, 08187-3 #### [facility] ([id number]) [address] [place] [address] 55758 Calcium [Mass/Vol] 8.9 mg/dL Normal 8.5-10.5 [facility] Comment on above: Performed By: #### C BCA, CMP, 45181-1, 84446-0, 10791-7 #### [facility] ([id number]) [address] [place] [address] 00765 Chloride [Moles/Vol] 99 mmol/L Normal 98-109 [facility] Comment on above: Performed By: #### C BCA, CMP, 07427-3, 55277-9, 26562-3 #### [facility] ([id number]) [address] [place] [address] 94276 CO2 [Moles/Vol] 25 mmol/L Normal 22-32 [facility] Comment on above: Performed By: #### C BCA, CMP, 25954-9, 39353-9, 98210-5 #### [facility] ([id number]) [address] [place] [address] 51439 Creatinine [Mass/Vol] 1.52 mg/dL High 0.70-1.20 [facility] Comment on above: Result Comment: METH OD TRACEABLE TO IDMS STANDARD Performed By: #### C BCA, CMP, 67219-8, 88709-7, 15987-2 #### [facility] ([id number]) [address] [place] [address] 12491 GFR/1.73 sq M.predicted among non-blacks MDRD (S/P/Bld) [Vol rate/Area] 44 mL/min/{1.73_m2} Low >59 [facility] Comment on above: Result Comment: Reported eGFR is based on the CKD-EPI 2020 equation that does not use a race coefficient. Performed By: #### C BCA, CMP, 00805-3, 63446-7, 93631-7 #### [facility] ([id number]) [address] [place] [address] 78710 Glucose [Mass/Vol] 104 mg/dL High 65-99 [facility] Comment on above: Performed By: #### C BCA, CMP, 59532-1, 98631-6, 88853-3 #### [facility] ([id number]) [address] [place] [address] 40404 Potassium [Moles/Vol] 3.7 mmol/L Normal 3.5-5.0 [facility] Comment on above: Performed By: #### C BCA, CMP, 91201-9, 76533-2, 35700-9 #### [facility] ([id number]) [address] [place] [address] 83115 Protein [Mass/Vol] 7.6 g/dL Normal 6.0-8.0 [facility] Comment on above: Performed By: #### C BCA, CMP, 11777-9, 58999-2, 35282-2 #### [facility] ([id number]) [address] [place] [address] 93822 Sodium [Moles/Vol] 138 mmol/L Normal 134-146 [facility] Comment on above: Performed By: #### C BCA, CMP, 73500-1, 88736-8, 68776-0 #### [facility] ([id number]) [address] [place] [address] 56111 Urea nitrogen [Mass/Vol] 50 mg/dL High 5-27 [facility] Comment on above: Performed By: #### C BCA, CMP, 84456-0, 09929-9, 18140-0 #### [facility] ([id number]) [address] [place] [address] 66522 Creatinine (U) [Mass/Vol]on 03-15-2024 URINE CREATININE,RDM 24.64 mg/dL Normal [facility] Comment on above: Performed By: #### C BCA, CMP, 77283-2, 38392-2, 25340-5 #### [facility] ([id number]) [address] [place] [address] 09596 DNA double strand Ab Qn (S)o n 03-15-2024 DOUBLE STRANDED DNA 9 IU/ML High <5 [facility] Comment on above: Result Comment: Interpretation-------- <5 Negative 5-9 Indeterminate >9 Positive Performed By: #### C BCA, CMP, 66696-0, 27215-3, 27254-7 #### [facility] ([id number]) [address] [place] [address] 13468 MAGNESIUMon 03-15-2024 Magnesium [Mass/Vol] 2.0 mg/dL Normal 1.8-2.6 [facility] Comment on above: Performed By: #### C BCA, CMP, 41898-7, 28807-9, 32843-9 #### [facility] ([id number]) [address] [place] [address] 12156 MICROALBUMIN - ALBUMIN:CREAT ININE URINE RATIOon 03-15-2024 ALB/CREAT RATIO NOT CALCULATED Normal 0.0-30.0 [facility] Comment on above: Result Comment: Result for Albumin/Creatinine Ratio cannot be reliably calculated because urine albumin and or urine creatinine is below the detection limit of the assay. Performed By: #### C BCA, CMP, 75902-7, 41356-1, 43300-7 #### [facility] ([id number]) [address] [place] [address] 44616 Albumin DL <= 20 mg/L (U) [Mass/Vol] mg/dL Normal 0.0-1.9 [facility] Comment on above: Performed By: #### C BCA, CMP, 00710-2, 35981-8, 48087-6 #### [facility] ([id number]) [address] [place] [address] 95742 URINE CREAT 22.94 mg/dL Normal [facility] Comment on above: Performed By: #### C BCA, CMP, 60597-4, 44564-9, 39704-0 #### [facility] ([id number]) [address] [place] [address] 28700 Nuclear Ab IA Ql (S)on 03-15 SANDEEP Screen w/reflex Negative Normal NEG [facility] Comment on above: Result Comment: Testing performed using multiplex flow immunoassay. Eleven different antigens associated with systemic autoimmune diseases (dsDNA,Sm,Sm/LOGISTICS ASSISTANT,LOGISTICS ASSISTANT,Chromatin, SSA,SSB,Fadia-1,Scl70,Ribo P,Centromere B) are included in this screening test. Performed By: #### C AUSTIN MARCELINO, , , 75589-5 #### [facility] ([id number]) [address] [place] [address] 27113 POTASSIUMon 03-15-2024 Potassium [Moles/Vol] 4.1 mmol/L Normal 3.5-5.0 [facility] Comment on above: Performed By: #### C AUSTIN MARCELINO, , , 01296-9 #### [facility] ([id number]) [address] [place] [address] 82651 Procalcitonin IA [Mass/Vol]o n 03-15-2024 PROCALCITONIN 0.05 ng/mL High <0.05 [facility] Comment on above: Result Comment: NOTE <0.50 ng/mL - Low risk of severe sepsis and/or septic shock. <2.00 ng/mL - Recommend retesting within 6-24 hours. >2.00 ng/mL - High risk of sepsis and/or septic shock. Performed By: #### C AUSTIN MARCELINO, , , 44170-9 #### [facility] ([id number]) [address] [place] [address] 98910 Protein (U) [Mass/Vol]on RANDOM URINE PROTEIN <20 Normal <120 [facility] Comment on above: Performed By: #### C AUSTIN MARCELINO, , 67554-1, 15921-1 #### [facility] ([id number]) [address] [place] [address] 25244 Figueroa extractable nuclear Ig G Qn (S)on 03-15-2024 ANTI-FIGUEROA AB IGG <0.2 Normal <1.0 [facility] Comment on above: Performed By: #### C BCA, CMP, 02155-9, 96180-3, 31995-0 #### [facility] ([id number]) [address] [place] [address] 28096 URINALYSISon 03-15-2024 Bilirubin Ql (U) Negative Normal NEG [facility] Comment on above: Performed By: #### C BCA, CMP, 96290-1, 79252-9, 34173-1 #### [facility] ([id number]) [address] [place] [address] [place] [address] BLOOD/HGB Negative Normal NEG [facility] Comment on above: Performed By: #### C BCA, CMP, 03001-2, 33723-7, 39127-9 #### [facility] ([id number]) [address] [place] [address] 53316 Color (U) YELLOW Normal YELLOW [facility] Comment on above: Performed By: #### C BCA, CMP, 43774-1, 52215-7, 16027-4 #### [facility] ([id number]) [address] [place] [address] [place] [address] Glucose Ql (U) Negative Normal NEG [facility] Comment on above: Performed By: #### C BCA, CMP, 32283-5, 36659-6, 14127-4 #### [facility] ([id number]) [address] [place] [address] [place] [address] Ketones Ql (U) Negative Normal NEG [facility] Comment on above: Performed By: #### C BCA, CMP, 42817-6, 03885-4, 64168-7 #### [facility] ([id number]) [address] [place] [address] [place] [address] Leukocyte esterase Test strip Ql (U) Negative Normal NEG [facility] Comment on above: Performed By: #### C BCA, CMP, 01999-6, 85376-1, 28374-2 #### [facility] ([id number]) [address] [place] [address] 54071 Nitrite Ql (U) Negative Normal NEG [facility] Comment on above: Performed By: #### C BCA, CMP, 79206-1, 39630-4, 79222-9 #### [facility] ([id number]) [address] [place] [address] 19432 pH (U) 7.0 [pH] Normal 5.0-8.5 [facility] Comment on above: Performed By: #### C BCA, CMP, 02220-6, 96383-7, 76727-8 #### [facility] ([id number]) [address] [place] [address] 99724 Protein Ql (U) Negative Normal NEG [facility] Comment on above: Performed By: #### C BCA, CMP, 13023-1, 96123-1, 94039-1 #### [facility] ([id number]) [address] [place] [address] 12524 Specific gravity (U) [Rel density] 1.015 Normal 1.003-1.035 [facility] Comment on above: Performed By: #### C BCA, CMP, 91977-5, 77952-7, 66615-3 #### [facility] ([id number]) [address] [place] [address] 75796 TURBIDITY CLEAR Normal CLEAR [facility] Comment on above: Performed By: #### C BCA, CMP, 29838-7, 33142-6, 96734-2 #### [facility] ([id number]) [address] [place] [address] 08940 Urobilinogen Qn (U) 0.2 {Berna'U}/dL Normal <1.1 [facility] Comment on above: Performed By: #### C BCA, CMP, 81883-1, 44136-0, 74396-1 #### [facility] ([id number]) [address] [place] [address] URINE SODIUM,RANDOMon 2023 Sodium (U) [Moles/Vol] 114 mmol/L Normal [facility] Comment on above: Performed By: #### C CHARI, CMP, 27675-2, 57629-6, 52150-5 #### [facility] ([id number]) [address] [place] [address] 62137 XR TIBIA FIBULA RT MIN 2 VWS on 03-15-2024 XR TIBIA FIBULA RT MIN 2 VWS XR TIBIA FIBULA RT MIN 2 VWS HISTORY: Swelling, ulceration COMPARISON: None FINDINGS: Multiple views of the right lower leg were obtained. Diffuse soft tissue edema without soft tissue gas or radiodense foreign body. Osseous structures are intact with normal alignment. No bony destructive process. IMPRESSION: * Diffuse soft tissue edema with no osseous abnormality. Finalized by Gilberto Trejo MD on 03/15/2024 7:58 AM Normal [facility] BLOOD CULTUREon 03-14-2024 Bacteria identified Aer cx Nom (Bld) CULTURE RESULTS NO GROWTH 5 DAYS Normal [facility] Bacteria identified Aer cx Nom (Bld) CULTURE RESULTS NO GROWTH 5 DAYS Normal [facility] CBC AND AUTO DIFFon 03-14-20 24 ABSOLUTE BASOPHIL 0.0 X10E9/L Normal 0.0-0.2 [facility] Comment on above: Performed By: #### C BCA, CMP, 64908-8, PINR, 63894-6, 08415-0, 13782-7, 82573-7 #### [facility] ([id number]) [address] [place] [address] 84123 ABSOLUTE NEUTROPHIL 5.0 X10E9/L Normal 1.5-6.6 [facility] Comment on above: Performed By: #### C BCA, CMP, 90440-0, PINR, 79595-9, 03413-0, 98546-4, 48239-8 #### [facility] ([id number]) [address] [place] [address] 01743 Basophils/100 WBC (Bld) 0.5 % Normal [facility] Comment on above: Performed By: #### C BCA, CMP, 53246-9, PINR, 00241-0, 22064-1, 18877-2, 97916-0 #### [facility] ([id number]) [address] [place] [address] 48347 Eosinophils (Bld) [#/Vol] 0.1 10*3/uL Normal 0.0-0.4 [facility] Comment on above: Performed By: #### C BCA, CMP, 64130-9, PINR, 59945-6, 58764-1, 50744-0, 33394-4 #### [facility] ([id number]) [address] [place] [address] 14930 Eosinophils/100 WBC (Bld) 1.4 % Normal [facility] Comment on above: Performed By: #### C BCA, CMP, 87490-2, PINR, 16114-1, 32709-7, 79869-6, 65782-7 #### [facility] ([id number]) [address] [place] [address] 54014 Erythrocyte distribution width (RBC) [Ratio] 13.7 % Normal 11.5-15.0 [facility] Comment on above: Performed By: #### C BCA, CMP, 73239-4, PINR, 24808-4, 13130-5, 47954-5, 05213-3 #### [facility] ([id number]) [address] [place] [address] 87096 Hematocrit (Bld) [Volume fraction] 37.7 % Low 39-49 [facility] Comment on above: Performed By: #### C BCA, CMP, 68977-7, PINR, 10366-4, 61992-4, 15487-1, 36447-5 #### [facility] ([id number]) [address] [place] [address] 32810 Hemoglobin (Bld) [Mass/Vol] 12.9 g/dL Low 13.0-17.0 [facility] Comment on above: Performed By: #### C BCA, CMP, 29939-5, PINR, 69421-2, 72354-2, 94278-9, 43589-7 #### [facility] ([id number]) [address] [place] [address] 19308 Lymphocytes (Bld) [#/Vol] 2.6 10*3/uL Normal 1.0-3.5 [facility] Comment on above: Performed By: #### C BCA, CMP, 24546-3, PINR, 39390-8, 32073-7, 55226-2, 93884-5 #### [facility] ([id number]) [address] [place] [address] 19785 Lymphocytes/100 WBC (Bld) 29.8 % Normal [facility] Comment on above: Performed By: #### C BCA, CMP, 29325-7, PINR, 76969-1, 98655-2, 74354-1, 10753-9 #### [facility] ([id number]) [address] [place] [address] 27735 MCH (RBC) [Entitic mass] 31.0 pg Normal 27-34 [facility] Comment on above: Performed By: #### C BCA, CMP, 11363-9, PINR, 96644-5, 50530-9, 63126-4, 66417-4 #### [facility] ([id number]) [address] [place] [address] 30632 MCHC (RBC) [Mass/Vol] 34.2 g/dL Normal 32-36 [facility] Comment on above: Performed By: #### C BCA, CMP, 78887-7, PINR, 06644-1, 74338-5, 95112-0, 49854-2 #### [facility] ([id number]) [address] [place] [address] 00036 MCV (RBC) [Entitic vol] 91 fL Normal 80-100 [facility] Comment on above: Performed By: #### C BCA, CMP, 31053-6, PINR, 02912-7, 64209-2, 45513-9, 74187-2 #### [facility] ([id number]) [address] [place] [address] 10738 Monocytes (Bld) [#/Vol] 0.9 10*3/uL Normal 0-0.9 [facility] Comment on above: Performed By: #### C BCA, CMP, 01666-7, PINR, 02357-5, 74844-2, 59593-5, 59136-5 #### [facility] ([id number]) [address] [place] [address] 56583 Monocytes/100 WBC (Bld) 10.5 % Normal [facility] Comment on above: Performed By: #### C BCA, CMP, 74993-2, PINR, 52385-9, 26227-9, 57552-7, 60826-5 #### [facility] ([id number]) [address] [place] [address] 65031 Neutrophils/100 WBC (Bld) 57.8 % Normal [facility] Comment on above: Performed By: #### C BCA, CMP, 45877-1, PINR, 32772-1, 42450-0, 21815-4, 09140-3 #### [facility] ([id number]) [address] [place] [address] [place] [address] Platelet mean volume (Bld) [Entitic vol] 8.2 fL Normal 7-12 [facility] Comment on above: Performed By: #### C BCA, CMP, 89738-0, PINR, 22970-7, 30783-1, 10402-8, 18705-7 #### [facility] ([id number]) [address] [place] [address] 51040 Platelets (Bld) [#/Vol] 252 10*3/uL Normal 150-450 [facility] Comment on above: Performed By: #### C BCA, CMP, 44641-7, PINR, 86669-4, 71427-0, 63563-1, 66849-9 #### [facility] ([id number]) [address] [place] [address] 52054 RBC COUNT 4.16 X10E12/L Normal 4.10-5.70 [facility] Comment on above: Performed By: #### C BCA, CMP, 35570-4, PINR, 84548-5, 77872-5, 90606-1, 14158-7 #### [facility] ([id number]) [address] [place] [address] 54361 WBC (Bld) [#/Vol] 8.7 10*3/uL Normal 4.0-11.0 [facility] Comment on above: Performed By: #### C BCA, CMP, 12683-9, PINR, 88327-0, 02719-3, 60384-0, 12169-4 #### [facility] ([id number]) [address] [place] [address] 17908 COMPREHENSIVE METABOLIC PANE Arthur 03-14-2024 Albumin [Mass/Vol] 3.9 g/dL Normal 3.2-5.3 [facility] Comment on above: Performed By: #### C BCA, CMP, 27367-9, PINR, 08079-0, 59583-8, 53745-7, 80132-1 #### [facility] ([id number]) [address] [place] [address] 59176 ALP [Catalytic activity/Vol] 103 U/L Normal 39-130 [facility] Comment on above: Performed By: #### C BCA, CMP, 06521-9, PINR, 56756-2, 94439-0, 37481-1, 85211-8 #### [facility] ([id number]) [address] [place] [address] 18186 ALT [Catalytic activity/Vol] 15 U/L Normal 0-40 [facility] Comment on above: Performed By: #### C BCA, CMP, 32488-0, PINR, 80884-8, 55298-2, 83249-5, 55580-5 #### [facility] ([id number]) [address] [place] [address] 86941 Anion gap [Moles/Vol] 11 mmol/L Normal 5-15 [facility] Comment on above: Performed By: #### C BCA, CMP, 49049-2, PINR, 18393-1, 08148-9, 95440-0, 99196-3 #### [facility] ([id number]) [address] [place] [address] 85286 AST [Catalytic activity/Vol] 21 U/L Normal 0-41 [facility] Comment on above: Performed By: #### C BCA, CMP, 39327-2, PINR, 36240-2, 45717-9, 14128-7, 95485-9 #### [facility] ([id number]) [address] [place] [address] 14543 Bilirubin [Mass/Vol] 0.9 mg/dL Normal 0.3-1.2 [facility] Comment on above: Performed By: #### C BCA, CMP, 55984-4, PINR, 74669-9, 26330-8, 50394-4, 33077-8 #### [facility] ([id number]) [address], [place] [address] Calcium [Mass/Vol] 9.5 mg/dL Normal 8.5-10.5 [facility] Comment on above: Performed By: #### C BCA, CMP, 08256-3, PINR, 72040-5, 87000-7, 13781-1, 45740-9 #### [facility] ([id number]) [address] [place] [address] 47563 Chloride [Moles/Vol] 98 mmol/L Normal 98-109 [facility] Comment on above: Performed By: #### C BCA, CMP, 57116-8, PINR, 48683-4, 47802-3, 08880-2, 85371-1 #### [facility] ([id number]) [address] [place] [address] 09097 CO2 [Moles/Vol] 27 mmol/L Normal 22-32 [facility] Comment on above: Performed By: #### C BCA, CMP, 43740-5, PINR, 50133-7, 81154-3, 32779-8, 98420-4 #### [facility] ([id number]) [address] [place] [address] [place] [address] Creatinine [Mass/Vol] 1.55 mg/dL High 0.70-1.20 [facility] Comment on above: Result Comment: METH OD TRACEABLE TO IDMS STANDARD Performed By: #### C BCA, CMP, 48693-3, PINR, 17136-1, 06334-9, 75043-5, 71836-9 #### [facility] ([id number]) [address] [place] [address] 67857 GFR/1.73 sq M.predicted among non-blacks MDRD (S/P/Bld) [Vol rate/Area] 43 mL/min/{1.73_m2} Low >59 [facility] Comment on above: Result Comment: Reported eGFR is based on the CKD-EPI 2020 equation that does not use a race coefficient. Performed By: #### C BCA, CMP, 38630-3, PINR, 37573-8, 64864-4, 57802-1, 68622-5 #### [facility] ([id number]) [address] [place] [address] [place] [address] Glucose [Mass/Vol] 119 mg/dL High 65-99 [facility] Comment on above: Performed By: #### C BCA, CMP, 51106-3, PINR, 73916-6, 22560-4, 51720-5, 12935-8 #### [facility] ([id number]) [address] [place] [address] [place] [address] Potassium [Moles/Vol] 4.8 mmol/L Normal 3.5-5.0 [facility] Comment on above: Performed By: #### C BCA, CMP, 17029-1, PINR, 28749-0, 12746-9, 63395-8, 67782-1 #### [facility] ([id number]) [address] [place] [address] [place] [address] Protein [Mass/Vol] 7.8 g/dL Normal 6.0-8.0 [facility] Comment on above: Performed By: #### C BCA, CMP, 02820-0, PINR, 48298-8, 75480-1, 08966-8, 34570-3 #### [facility] ([id number]) [address] [place] [address] [place] [address] Sodium [Moles/Vol] 136 mmol/L Normal 134-146 [facility] Comment on above: Performed By: #### C BCA, CMP, 96039-4, PINR, 39092-2, 48539-5, 95876-9, 30138-7 #### [facility] ([id number]) [address] [place] [address] [place] [address] Urea nitrogen [Mass/Vol] 56 mg/dL High 5-27 [facility] Comment on above: Performed By: #### C CHARI, AUSTIN, 56457-8, PINR, 01999-9, 07929-3, 42852-0, 06895-1 #### [facility] ([id number]) [address] [place] [address] 10593 Fibrin D-dimer DDU (PPP) [Ma ss/Vol]on 03-14-2024 D DIMER 551 ng/mL DDU High <255 [facility] Comment on above: Result Comment: Results >=255ng/mL DDU: Results may be indicative of the presence of VTE. The use of the Wells score and further diagnostic tests should be considered. Elevated D-Dimer levels can also be associated with DIC, neoplasm, , trauma and liver disease. Elevated levels of rheumatoid factor may lead to an overestimation of the D-Dimer level. Performed By: #### C CHARI, AUSTIN, 75357-7, PINR, 79998-9, 70976-4, 76837-9, 47465-3 #### [facility] ([id number]) [address] [place] [address] 16064 Lactate (P shireen) [Moles/Vol]o n 03-14-2024 LACTATE W/REFLEX 1.9 mmol/L Normal 0.4-2.0 [facility] Comment on above: Result Comment: Result did not trigger repeat Lactate, re-order if needed. Performed By: #### C CHARI, AUSTIN, 11694-3, 63863-4, 77348-8 #### [facility] ([id number]) [address] [place] [address] 20398 MAGNESIUMon 03-14-2024 Magnesium [Mass/Vol] 2.0 mg/dL Normal 1.8-2.6 [facility] Comment on above: Performed By: #### C CHARI, AUSTIN, 93696-5, 05125-4, 45319-4 #### [facility] ([id number]) [address] [place] [address] 41747 Natriuretic peptide B [Mass/ Vol]on 03-14-2024 Natriuretic peptide B (Bld) [Mass/Vol] 74 pg/mL Normal <100.0 [facility] Comment on above: Performed By: #### C CHARI, CMP, 43537-0, 60361-4, 57814-4 #### [facility] ([id number]) [address] [place] [address] 53947 PROTIME AND INRon 03-14-2024 INR Coag (PPP) [Relative time] 1.0 {INR} Normal 0.8-1.1 [facility] Comment on above: Performed By: #### C CHARI, CMP, 74252-0, 03633-7, 75349-6 #### [facility] ([id number]) [address] [place] [address] 78965 PT Coag (PPP) [Time] 11.2 s Normal 9.8-13.2 [facility] Comment on above: Result Comment: NEW REFERENCE RANGE Performed By: #### C BCA, CMP, 45155-9, 15656-8, 34264-3 #### [facility] ([id number]) [address] [place] [address] 84986 SUPERFICIAL WOUND CULTUREon 03-14-2024 Bacteria identified Aer cx Nom (Wound) GRAM STAIN 0 to 1 WHITE BLOOD CELLS/LPF 1 to 9 SQUAMOUS EPITHELIAL CELLS/LPF FEW GRAM POSITIVE COCCI MANY GRAM NEGATIVE RODS FEW GRAM POSITIVE RODS RESEMBLING DIPHTHEROIDS CULTURE RESULTS MANY MIXED GRAM POSITIVE AND GRAM NEGATIVE ORGANISMS NO STAPHYLOCOCCUS AUREUS ISOLATED NO PSEUDOMONAS AERUGINOSA ISOLATED NO BETA HEMOLYTIC STREPTOCOCCI ISOLATED Normal [facility] Comment on above: Performed By: #### 6 32-0 #### [facility] ([id number]) [address] [place] [address], [address] [place] [address] Troponin I.cardiac High sens itivity method [Mass/Vol]on 03-14-2024 1 HOUR TROP I, HIGH SENSITIVITY 6 ng/L Normal <21 [facility] Comment on above: Performed By: #### C BCA, CMP, 53759-6, 34107-2, 55352-5 #### [facility] ([id number]) [address] [place] [address] TROPONIN I, HIGH SENSITIVITY 6 ng/L Normal <21 [facility] Comment on above: Performed By: #### C BCA, CMP, 23946-6, 81172-8, 42482-3 #### [facility] ([id number]) [address] [place] [address] 22481 XR CHEST 1 VWon 03-14-2024 XR CHEST 1 VW XR CHEST 1 VW XR CHEST 1 VW 03/14/2024 5:11 PM INDICATION: cough COMPARISON: Chest radiograph 11/10/2023 TECHNIQUE: Single frontal view the chest was obtained. FINDINGS/IMPRESSION: 1. Questionable minimal strandy airspace disease at the left greater the right lung base, possibly atelectasis versus scar. 2. There is no pneumothorax. There is no pleural effusion. 3. The cardiomediastinal silhouette is similar. Finalized by Colton Longo DO on 03/14/2024 5:16 PM Normal [facility] aPTT Coag (PPP) [Time]on aPTT Coag (Bld) [Time] 34 s Normal 26-37 [facility] Comment on above: Result Comment: NEW REFERENCE RANGE Performed By: #### C BCA, CMP, 17745-1, 93774-5, 42289-3 #### [facility] ([id number]) [address] [place] [address] 09446 BASIC METABOLIC PANLon 11-28 Anion gap [Moles/Vol] 9 mmol/L Normal 5-15 [facility] Comment on above: Performed By: #### B MP #### [facility] ([id number]) [address] [place] [address] Calcium [Mass/Vol] 9.8 mg/dL Normal 8.5-10.5 [facility] Comment on above: Performed By: #### B MP #### [facility] ([id number]) [address], [address] [place] [address] Chloride [Moles/Vol] 105 mmol/L Normal 98-109 [facility] Comment on above: Performed By: #### B MP #### [facility] ([id number]) [address], [address] [place] [address] CO2 [Moles/Vol] 28 mmol/L Normal 22-32 [facility] Comment on above: Performed By: #### B MP #### [facility] ([id number]) [address] [address] [place] [address] Creatinine [Mass/Vol] 1.31 mg/dL High 0.60-1.30 [facility] Comment on above: Result Comment: METH OD TRACEABLE TO IDMS STANDARD Performed By: #### B MP #### [facility] ([id number]) [address] [address] [place] [address] GFR/1.73 sq M.predicted among non-blacks MDRD (S/P/Bld) [Vol rate/Area] 52 mL/min/{1.73_m2} Low >59 [facility] Comment on above: Result Comment: Reported eGFR is based on the CKD-EPI 1 equation that does not use a race coefficient. Performed By: #### B MP #### [facility] ([id number]) [address] [address] [place] [address] Glucose [Mass/Vol] 139 mg/dL High 65-99 [facility] Comment on above: Performed By: #### B MP #### [facility] ([id number]) [address] [address] [place] [address] Potassium [Moles/Vol] 4.5 mmol/L Normal 3.5-5.0 [facility] Comment on above: Performed By: #### B MP #### [facility] ([id number]) [address] [address] [place] [address] Sodium [Moles/Vol] 142 mmol/L Normal 134-146 [facility] Comment on above: Performed By: #### B MP #### [facility] ([id number]) [address] [place] [address] Urea nitrogen [Mass/Vol] 35 mg/dL High 5-27 [facility] Comment on above: Performed By: #### B MP #### [facility] ([id number]) [address], [address] [place] [address] Basic Metabolic Panelon 11-14 Anion gap [Moles/Vol] 9 mmol/L 5 - 15 mmol/L [facility] Calcium [Mass/Vol] 9.8 mg/dL 8.5 - 10. 5 mg/dL [facility] Chloride [Moles/Vol] 105 mmol/L 98 - 10 9 mmol/L [facility] CO2 [Moles/Vol] 28 mmol/L 22 - 32 mmol/L [facility] Creatinine [Mass/Vol] 1.31 mg/dL High 0.60 - 1.30 mg/dL [facility] Comment on above: METHOD TRACEABLE TO IDDE STANDARD eGFR (CKD-EPI)non-race dependent 52 Low - PINF [facility] Comment on above: Reported eGFR is based on the CKD-EPI 2020 equation that does not use a race coefficient. Glucose [Mass/Vol] 139 mg/dL High 65 - 99 mg/dL [facility] Interpretation and review of laboratory results Abnormal [facility] Potassium [Moles/Vol] 4.5 mmol/L 3.5 - 5.0 mmol/L [facility] Sodium [Moles/Vol] 142 mmol/L 134 - 146 mmol/L [facility] Urea nitrogen [Mass/Vol] 35 mg/dL High 5 - 27 mg/dL [facility] POCT Glucose Fingerstickon 0 11-28-2023 Glucose [Mass/Vol] 137 mg/dL Abnormal 65 - 99 mg/dL [facility] Interpretation and review of laboratory results Abnormal [facility] CBC AND AUTO DIFFon 11-10-20 ABSOLUTE BASOPHIL 0.1 X10E9/L Normal 0.0-0.2 [facility] Comment on above: Performed By: #### C BCA, CMP, 89291-4, 79685-9, 86503-1 #### [facility] ([id number]) [address] [place] [address] 56453 ABSOLUTE NEUTROPHIL 3.5 X10E9/L Normal 1.5-6.6 [facility] Comment on above: Performed By: #### C BCA, CMP, 39114-9, 99670-3, 77333-1 #### [facility] ([id number]) [address] [place] [address] 36117 Basophils/100 WBC (Bld) 0.8 % Normal [facility] Comment on above: Performed By: #### Vijaya BCA, CMP, 37256-7, 66032-2, 63460-0 #### [facility] ([id number]) [address] [place] [address] 69499 Eosinophils (Bld) [#/Vol] 0.2 10*3/uL Normal 0.0-0.4 [facility] Comment on above: Performed By: #### Vijaya BCA, CMP, 99304-1, 87170-6, 90365-2 #### [facility] ([id number]) [address] [place] [address] 47449 Eosinophils/100 WBC (Bld) 2.5 % Normal [facility] Comment on above: Performed By: #### C BCA, CMP, 03965-6, 97397-3, 76075-9 #### [facility] ([id number]) [address] [place] [address] 63249 Erythrocyte distribution width (RBC) [Ratio] 13.9 % Normal 11.5-15.0 [facility] Comment on above: Performed By: #### C BCA, CMP, 87964-7, 67265-8, 10886-6 #### [facility] ([id number]) [address] [place] [address] 04949 Hematocrit (Bld) [Volume fraction] 43.0 % Normal 39-49 [facility] Comment on above: Performed By: #### C BCA, CMP, 17325-9, 18507-6, 24000-1 #### [facility] ([id number]) [address] [place] [address] 19550 Hemoglobin (Bld) [Mass/Vol] 14.6 g/dL Normal 13.0-17.0 [facility] Comment on above: Performed By: #### C BCA, CMP, 38578-1, 89783-9, 22987-5 #### [facility] ([id number]) [address] [place] [address] 34840 Lymphocytes (Bld) [#/Vol] 2.7 10*3/uL Normal 1.0-3.5 [facility] Comment on above: Performed By: #### C BCA, CMP, , 82051-0, 29350-6 #### [facility] ([id number]) [address] [place] [address] 34586 Lymphocytes/100 WBC (Bld) 38.0 % Normal [facility] Comment on above: Performed By: #### C BCA, CMP, 02862-7, 80646-2, 49940-1 #### [facility] ([id number]) [address] [place] [address] 20213 MCH (RBC) [Entitic mass] 31.0 pg Normal 27-34 [facility] Comment on above: Performed By: #### C BCA, CMP, 38554-1, 79003-5, 17303-2 #### [facility] ([id number]) [address] [place] [address] 43415 MCHC (RBC) [Mass/Vol] 33.8 g/dL Normal 32-36 [facility] Comment on above: Performed By: #### C BCA, CMP, 41040-3, 37236-8, 64925-8 #### [facility] ([id number]) [address] [place] [address] 12875 MCV (RBC) [Entitic vol] 92 fL Normal 80-100 [facility] Comment on above: Performed By: #### C BCA, CMP, 96067-8, 11104-8, 86348-1 #### [facility] ([id number]) [address] [place] [address] 04057 Monocytes (Bld) [#/Vol] 0.8 10*3/uL Normal 0-0.9 [facility] Comment on above: Performed By: #### C BCA, CMP, 03110-9, 43908-9, 55563-5 #### [facility] ([id number]) [address] [place] [address] 98076 Monocytes/100 WBC (Bld) 10.5 % Normal [facility] Comment on above: Performed By: #### C BCA, CMP, 26376-2, 06391-6, 03052-8 #### [facility] ([id number]) [address] [place] [address] 55326 Neutrophils/100 WBC (Bld) 48.2 % Normal [facility] Comment on above: Performed By: #### C BCA, CMP, 77299-5, 09246-5, 80916-1 #### [facility] ([id number]) [address] [place] [address] 14035 Platelet mean volume (Bld) [Entitic vol] 8.5 fL Normal 7-12 [facility] Comment on above: Performed By: #### C BCA, CMP, 54081-0, 20150-3, 09398-6 #### [facility] ([id number]) [address] [place] [address] 74130 Platelets (Bld) [#/Vol] 238 10*3/uL Normal 150-450 [facility] Comment on above: Performed By: #### C BCA, CMP, 74861-2, 81239-0, 32453-6 #### [facility] ([id number]) [address] [place] [address] 54444 RBC COUNT 4.70 X10E12/L Normal 4.10-5.70 [facility] Comment on above: Performed By: #### C BCA, CMP, 81359-6, 31525-3, 25226-6 #### [facility] ([id number]) [address] [place] [address] 51934 WBC (Bld) [#/Vol] 7.2 10*3/uL Normal 4.0-11.0 [facility] Comment on above: Performed By: #### C BCA, CMP, 61089-4, 05487-6, 88861-8 #### [facility] ([id number]) [address] [place] [address] 28263 COMPREHENSIVE METABOLIC PANE [facility] 11-10-2023 Albumin [Mass/Vol] 4.4 g/dL Normal 3.2-5.3 [facility] Comment on above: Performed By: #### C BCA, CMP, 45845-2, 59246-7, 98545-3 #### [facility] ([id number]) [address] [place] [address] 07864 ALP [Catalytic activity/Vol] 93 U/L Normal 39-130 [facility] Comment on above: Performed By: #### C BCA, CMP, 22941-3, 45811-3, 56703-7 #### [facility] ([id number]) [address] [place] [address] 77009 ALT [Catalytic activity/Vol] 13 U/L Normal 0-40 [facility] Comment on above: Performed By: #### C BCA, CMP, 21373-0, 30477-6, 05427-8 #### [facility] ([id number]) [address] [place] [address] 03809 Anion gap [Moles/Vol] 5 mmol/L Normal 5-15 [facility] Comment on above: Performed By: #### C BCA, CMP, 72110-9, 72101-1, 44079-2 #### [facility] ([id number]) [address] [place] [address] 54020 AST [Catalytic activity/Vol] 25 U/L Normal 0-41 [facility] Comment on above: Performed By: #### C BCA, CMP, 60194-5, 19682-1, 89272-6 #### [facility] ([id number]) [address] [place] [address] 32147 Bilirubin [Mass/Vol] 1.1 mg/dL Normal 0.3-1.2 [facility] Comment on above: Performed By: #### C BCA, CMP, 12421-7, 41677-3, 39501-5 #### [facility] ([id number]) [address] [place] [address] 25734 Calcium [Mass/Vol] 9.5 mg/dL Normal 8.5-10.5 [facility] Comment on above: Performed By: #### C BCA, CMP, 62769-2, 40973-1, 19140-0 #### [facility] ([id number]) [address] [place] [address] 87027 Chloride [Moles/Vol] 104 mmol/L Normal 98-109 [facility] Comment on above: Performed By: #### C BCA, CMP, 30189-4, 95966-9, 40695-2 #### [facility] ([id number]) [address] [place] [address] 94024 CO2 [Moles/Vol] 27 mmol/L Normal 22-32 [facility] Comment on above: Performed By: #### C CHARI, CMP, 98801-9, 64986-1, 74454-6 #### [facility] ([id number]) [address] [place] [address] 26772 Creatinine [Mass/Vol] 1.32 mg/dL High 0.70-1.20 [facility] Comment on above: Result Comment: METH OD TRACEABLE TO IDMS STANDARD Performed By: #### C CHARI, [place], 42746-0, 30799-0, 26267-7 #### [facility] ([id number]) [address] [place] [address] 62151 GFR/1.73 sq M.predicted among non-blacks MDRD (S/P/Bld) [Vol rate/Area] 52 mL/min/{1.73_m2} Low >59 [facility] Comment on above: Result Comment: Reported eGFR is based on the CKD-EPI 2020 equation that does not use a race coefficient. Performed By: #### C CHARI, [place], , 61204-6, 87903-7 #### [facility] ([id number]) [address] [place] [address] 81697 Glucose [Mass/Vol] 101 mg/dL High 65-99 [facility] Comment on above: Performed By: #### C CHARI, CMP, 07923-8, 42023-0, 04668-6 #### [facility] ([id number]) [address] [place] [address] 32129 Potassium [Moles/Vol] 4.9 mmol/L Normal 3.5-5.0 [facility] Comment on above: Performed By: #### C CHARI, CMP, 88968-9, 95652-9, 62144-4 #### [facility] ([id number]) [address] [place] [address] 05087 Protein [Mass/Vol] 8.5 g/dL High 6.0-8.0 [facility] Comment on above: Performed By: #### C BCA, CMP, 12707-7, 46220-0, 97729-1 #### [facility] ([id number]) [address] [place] [address] 66508 Sodium [Moles/Vol] 136 mmol/L Normal 134-146 [facility] Comment on above: Performed By: #### C BCA, CMP, 89735-2, 10375-4, 41661-2 #### [facility] ([id number]) [address] [place] [address] 51598 Urea nitrogen [Mass/Vol] 28 mg/dL High 5-27 [facility] Comment on above: Performed By: #### C BCA, CMP, 81571-8, 83697-6, 20698-0 #### [facility] ([id number]) [address] [place] [address] 22939 MAGNESIUMon 11-10-2023 Magnesium [Mass/Vol] 1.9 mg/dL Normal 1.8-2.6 [facility] Comment on above: Performed By: #### C BCA, CMP, 72835-0, 40802-2, 43313-4 #### [facility] ([id number]) [address] [place] [address] 32024 Natriuretic peptide B [Mass/ Vol]on 11-10-2023 Natriuretic peptide B (Bld) [Mass/Vol] 63 pg/mL Normal <100.0 [facility] Comment on above: Performed By: #### C BCA, CMP, 79922-2, 54562-0, 68296-3 #### [facility] ([id number]) [address] [place] [address] 93871 TROPONIN Ion 11-10-2023 Troponin I.cardiac [Mass/Vol] 0.03 ng/mL Normal 0.00-0.04 [facility] Comment on above: Performed By: #### C BCA, [facility], 37310-4, [id number], 41544-9 #### [facility] ([id number]) [address] [place] [address], [place] [address] XR CHEST 1 VWon 11-10-2023 XR CHEST 1 VW XR CHEST 1 VW CLINICAL INFORMATION: Acute chest pain. TECHNIQUE: Chest, 1 view. COMPARISON: 06/13/2022. FINDINGS Cardiomediastinal silhouette not significantly changed when allowing for differences in technique. Aortic arch plaque. Low lung volumes with probable mild left subsegmental atelectasis. Otherwise no focal consolidation, overt edema, pleural effusions or pneumothorax. Interval removal of a right IJ central venous catheter since 2021. IMPRESSION: * No radiographic findings of acute cardiopulmonary pathology. Approved by Resident Dany Li MD on 11/10/2023 3:58 PM IRaghavendra have personally reviewed the image(s) and agree with and/or edited the report Finalized by Raghavendra Ovalle on 11/10/2023 4:02 PM Normal [facility] Vital Signs Date Time Vital Sign Value Performing Clinician Facility 11-28-2023 14:41-0500 Diastolic blood pressure 82 mm[Hg] Mata Sepulveda PA-C Work Phone: [facility] 11-28-2023 14:41-0500 Systolic blood pressure 132 mm[Hg] Mata Sepulveda PA-C Work Phone: [facility] 11-28-2023 14:17-0500 Body height 177.8 cm Mata Sepulveda PA-C Work Phone: [facility] 11-28-2023 14:17-0500 Body mass index (BMI) [Ratio] 26.83 kg/m2 Mata Sepulveda PA-C Work Phone: [facility] 11-28-2023 14:17-0500 Body temperature 97 [degF] Mata Sepulveda PA-C Work Phone: [facility] 11-28-2023 14:17-0500 Body weight 84.82 kg Mata Sepulveda PA-C Work Phone: [facility] [employer] [facility] 11-28-2023 14:17-0500 Heart rate 86 /min Mata Sepulveda PA-C Work Phone: [facility] 11-10-2023 13:34-0500 Body height 177.8 cm Mata Sepulveda PA-C Work Phone: [facility] 11-10-2023 13:34-0500 Body mass index (BMI) [Ratio] 28.55 kg/m2 Mata Sepulveda PA-C Work Phone: [facility] 11-10-2023 13:34-0500 Body temperature 97.11 [degF] Mata Sepulveda PA-C Work Phone: [facility] 11-10-2023 13:34-0500 Body weight 90.27 kg Mata Sepulveda PA-C Work Phone: [facility] 11-10-2023 13:34-0500 Diastolic blood pressure 74 mm[Hg] Mata Sepulveda PA-C Work Phone: [facility] 11-10-2023 13:34-0500 Heart rate 66 /min Mata Sepulveda PA-C Work Phone: [facility] 11-10-2023 13:34-0500 SaO2% (BldA) [Mass fraction] 94 % Mata Sepulveda PA-C Work Phone: [facility] 11-10-2023 13:34-0500 Systolic blood pressure 136 mm[Hg] Mata Sepulveda PA-C Work Phone: [facility] Encounters Encounter Date Encounter Type Care Provider Facility Start: 03-30-2024 End: 03-30-2024 ambulatory VINCENT ROSADO [facility] Start: 03-15-2024 End: 03-19-2024 [facility]: 03-15-2024 End: 03-19-2024 ambulatory HILARY ADORNO [facility] Start: 03-15-2024 End: 03-15-2024 ambulatory [facility] Start: 03-14-2024 End: 03-19-2024 Emergency department patient visit GABY Bravo FERNANDA [facility] Start: 03-14-2024 End: 03-19-2024 ambulatory MATA [facility] Start: 03-14-2024 End: 03-14-2024 ambulatory [facility] Start: 01-21-2024 Refill Mata Sepulveda PA-C Work Phone: [facility]Ru Mark MD Start: 11-28-2023 End: 11-29-2023 ambulatory [facility] Start: 11-28-2023 End: 11-28-2023 ambulatory [facility] Start: 11-28-2023 Encounter for genera l adult medical examination without abnormal findings [facility] Start: 11-28-2023 End: 11-28-2023 Patient encounter procedure Mata Sepulveda PA-C Work Phone: [facility]Ru Mark MD Comment on above: Medicare annual well ness visit, subsequent (Primary Dx); Essential hypertension; Encephalopathy; Stage 3b chronic kidney disease ([facility]); Bilateral leg edema; Mixed hyperlipidemia; Dementia with behavioral disturbance (CMS-HCC); Other specified abnormal findings of blood chemistry; Severe Alzheimer's dementia without behavioral disturbance, psychotic disturbance, mood disturbance, or anxiety, unspecified timing of dementia onset ([facility]); Mild pulmonary hypertension (CMS-HCC); Atherosclerotic PVD with intermittent claudication ([facility]) Start: 11-15-2023 Refill Mata Sepulveda PA-C Work Phone: [facility]Ru Mark MD Start: 11-10-2023 End: 11-11-2023 Emergency department patient visit SANTOSH VILA [facility] Start: 11-10-2023 End: 11-10-2023 ambulatory MATAAdelina SEPULVEDA [facility] Start: 11-10-2023 End: 11-10-2023 Office outpatient visit 25 minutes Mata Sepulveda PA-C Work Phone: [facility]Ru Mark MD Comment on above: Bilateral leg edema (Primary Dx); BENZ (dyspnea on exertion); Chest pain of unknown etiology Procedures Date Procedure Procedure Detail Performing Clinician Start: 11-28-2023 Gluc bld gluc mntr d ev cleared fda spec home use Mata Sepulveda PA-C Work Phone: Start: 11-28-2023 Adult depression screening assessment Mata Sepulveda PA-C Work Phone: Start: 11-10-2023 Follow-up visit Follow-up MATA SEPULVEDA Start: 05-05-2023 Adult depression screening assessment Mata Sepulveda PA-C Work Phone: Plan of Treatment Date Care Activity Detail Author Start: 11-28-2024 Adult BMI Screening Adult BMI Screening [facility] Start: 11-28-2024 Depression Screening Depression Screening [facility] Start: 11-28-2024 Fall Risk Screening Fall Risk Screening [facility] Start: 11-28-2024 Medicare Annual Wellness Visit Medicare Annual Wellness Visit [facility] Start: 11-28-2024 Tobacco Screening Tobacco Screening [facility] Start: 11-10-2024 Adult BMI Screening Adult BMI Screening [facility] Start: 11-10-2024 Tobacco Screening Tobacco Screening [facility] Start: 05-05-2024 Depression Screening Depression Screening [facility] Start: 03-01-2024 End: 03-01-2024 Patient encounter procedure 03/01/2024 2:00 PM EDT Office Visit [facility]Ru Mark MD [address] [place] [id number] Mata Sepulveda PA-C [address] [place], [place] [id number] [facility]Ru Mark MD Start: 11-28-2023 End: 11-28-2023 Patient encounter procedure 11/28/2023 2:00 PM EST Office Visit [facility]Ru Mark MD [address] [place] [id number] Mata Sepulveda PA-C [address] [place] [address] [facility]Ru Mark MD Start: 11-25-2023 Medicare Annual Wellness Visit Medicare Annual Wellness Visit [facility] Start: 07-15-2023 COVID-19 Vaccine ( season) COVID-19 Vaccine ( season) [facility] Start: 10-22-2022 Fall Risk Screening Fall Risk Screening [facility] Start: 1985 Administration of varicella zoster vaccine Zoster (Shingles) Vaccine (1 of 2) [facility] Start: 1954 DTaP,Tdap and Td Vaccines (1 - Tdap) DTaP,Tdap and Td Vaccines (1 - Tdap) [facility] Start: 1953 Adult BMI Follow Up Plan Adult BMI Follow Up Plan [facility] Immunizations Immunization Date Immunization Notes Care Provider Fa cility 09-15-2022 Covid-19, Mrna, Lnp- s, Bivalent, Pf, 50mcg/0.5ml or 25mcg/0.25ml Mata Sepulveda PA-C Work Phone: [facility] 09-15-2022 Covid-19, Mrna, Lnp- s, Pf, 50mcg/0.5ml Dose Mata Sepulveda PA-C Work Phone: [facility] 09-15-2022 Influenza Vaccine, Quadrivalent, Adjuvanted Mata Sepulveda PA-C Work Phone: [facility] 09-15-2022 Influenza, High-dose , Quadrivalent Mata SMITHC Work Phone: [facility] 10-29-2021 COVID-19, mRNA, LNP- S, PF, 100mcg/0.5mL Dose Mata SMITHC Work Phone: [facility] 08-25-2021 Influenza Vaccine, Quadrivalent, Adjuvanted Mata MADISON-Vijaya Work Phone: [facility] 08-25-2021 influenza virus vacc ine, unspecified formulation Mata MADISON-C Work Phone: [facility] 07-23-2020 influenza virus vacc ine, unspecified formulation Mata MADISON-C Work Phone: [facility] 07-23-2020 Influenza, High-dose , Quadrivalent Mata MADISON-C Work Phone: [facility] 09-11-2019 influenza, injectabl e, quadrivalent, contains preservative Mata MADISON-C Work Phone: [facility] 09-11-2019 influenza, injectabl e, quadrivalent, preservative free Mata MADISON-C Work Phone: [facility] 11-22-2017 pneumococcal conjuga te vaccine, 13 valent Mata MADISON-C Work Phone: [facility] 08-16-2017 influenza, high dose seasonal, preservative-free Mata MADISON-C Work Phone: [facility] 03-15-2017 pneumococcal polysaccharide vaccine, 23 valent Mata MADISON-C Work Phone: [facility] 10-05-2016 influenza, high dose seasonal, preservative-free Mata Sepulveda PA-C Work Phone: [facility] 09-03-2015 influenza, high dose seasonal, preservative-free Mata Sepulveda PA-C Work Phone: [facility] 09-03-2015 influenza, seasonal, injectable Mata [facility]ulved[facility]-C [facility]-2011 influenza virus vacc ine, whole virus Mata Sepulveda PA-C Work Phone: [facility] 09-01-2009 influenza virus vacc ine, whole virus Mata Sepulveda PA-C [facility] Phone: [facility] Payers Date Payer Category Payer Medicare [employer] MED[employer] U[employer] MEDICARE ADVANTAGE PPO [id number] 2022-Present [phone] [address] [address] [place] [address] [id number] 2022 Medicare [id number] 1935 Unknown [id number]. 1285 1935 Unknown [id number] [id number]. 1285 1935 Unknown [id number] [id number]. 1285 1935 Unknown [id number] [id number]. 1285 1935 Unknown [id number] [id number]. 1285 1935 Unknown [id number] [id number]. 1285 1935 Unknown [id number] [id number]. 1285 1935 Unknown [id number] [id number]. 1285 1935 Unknown [id number] [id number]. 1286 1935 Unknown [id number] [id number]. 1286 1935 Unknown [id number] [id number]. 1286 1935 Unknown [id number] [id number]. 1286 1935 Unknown [id number] [id number]. 1286 Social History Date Type Detail Facility Start: 11-25-2022 [facility] History of tobacco use Current smoker [facility] History of tobacco use Cigarette Smoker [facility] Start: 11-25-2022 Tobacco use and exposure Smokeless tobacco non-user [facility] Start: 11-10-2023 End: 11-28-2023 Alcohol intake Current drinker of alcohol (finding) [facility] Start: 12-25-2020 End: 11-10-2023 History of Social function [facility] Start: 12-25-2020 End: 11-10-2023 Tobacco use panel [facility] Adolescent depressio n screening assessment 0 [facility] Start: 1935 Sex Assigned At Not on file P [facility] Medical Equipment Procedure Code Equipment Code Equipment Origin al Text Equipment Identifier Dates Lens Iol Ultrase rt 22.5d - [id number] - [id number] Start: 01-11-2019 Goals Date Patient Goal Desired Activity /State Personal health goal Comment on above: Formatting of this n ote might be different from the original. Evaluation of progress towards goal: patient plans for a safe discharge, awaiting therapy recommendations. History of Present illness Narrative 11-28-2023 Mata Sepulveda PA-C - 11/28/2023 2:00 PM EST Note Date & Type Note Facility 11-28-2023 History of Present illness Narrative Subjective Patient ID: Leatha Vila is a 88 y.o. male. Chief Complaint Chief Complaint Patient presents with medicare wellness HPI HPI MCWE: Mr. Vila is a very pleasant, previously active, 88 y/o, 3 miles/day walker, sharp, fix anything man until about 2 years ago when memory declined after SD, MIGUEL, Hyperkalemia of 6.6 when he was admitted to [facility]. He comes in with his who is sales porter. Overall he has a gradually declining memory. Behaviors gradually worse. wants to keep him at the house. Giving seroquel 50mg at night and 25mg in AM. He has had mild, chronic leg swelling wax/wane. gives cardiac diet. He was taking lasix 20mg prn. has declined bar assistant, echo. Wants to keep him comfortable. His behaviors/confusion improved with seroquel addition. 11/10/23 ED eval for cp, leg edema. EKG was normal, neg trop, normal d-dimer, CR of 1.3, discharged. Progressive, very slow past month. Dementia to year, place, person. Wearing same clothes 3-4 days in a row Newly incontinent, defiant with briefs/depends per . Mild smell of urine Feeds himself. Sleeps most of day. No longer angry/mean with seroquel 50mg at HS. continues to decline NH placement. He has had 2 falls in past month. declines home health care nurse, states in the past it agitated him. End of life discussions today. cannot find their will or title to vehincles, deed to house. He put them away someplace. She is scared of losing house if he goes into half-way. Taking lasix 20mg. Sven +1 LE edema present. 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 Presumed 02/2021 when speed walking. Acute renal failure ([facility]) 06/13/2022 Hyperlipidemia Hypertension Peripheral vascular disease ([facility] Dr. Gee at [facility]- hi pletal Visual impairment wears glasses Wears dentures upper and lower Wears glasses Zoster 08/2017 Past Surgical History Past Surgical History: Procedure Laterality Date CATARACT EXTRACTION COLONOSCOPY Dr. [place]. Completed last c-scope PHACO KELMAN I IMPLANT INTRAOCULAR LENS Right 01/11/2019 Performed by Yee Figueroa MD at [facility] Family History Family History Problem Relation Age of Onset Blood Clots Mother Dementia Brother Heart attack Brother Other Daughter 14 ATV accident Social History Social History Socioeconomic History Marital status: Spouse name: Not on file Number of children: Not on file Years of education: Not on file Highest education level: Not on file Occupational History Not on file Tobacco Use Smoking status: Former Years: 10 Types: Cigarettes Smokeless tobacco: Never Vaping Use Vaping Use: Never used Substance and Sexual Activity Alcohol use: Yes Drug use: Never Sexual activity: Defer Other Topics Concern Not on file Social History Narrative Not on file Social Determinants of Health Financial Resource Strain: Not on file Food Insecurity: No Food Insecurity (11/10/2023) Hunger Screening Food Insecurity - Worry: Never True Food Insecurity - Inability: Never True Transportation Needs: Not on file Physical Activity: Not on file Stress: Not on file Social Connections: Not on file Interpersonal Safety: Not on file Allergies No Known Allergies Current Medications Current Outpatient Medications Medication Sig Dispense Refill amLODIPine (NORVASC) 5 mg tablet Take 1 tablet (5 mg total) by mouth in the morning. 30 tablet 5 folic acid/multivit-min/lutein (CENTRUM SILVER ORAL) Take 1 tablet by mouth in the morning. magnesium hydroxide (MILK OF MAGNESIA) 400 mg/5 mL suspension Take 30 mL by mouth nightly as needed. metoprolol tartrate (LOPRESSOR) 50 mg tablet TAKE 1 TABLET BY MOUTH IN THE MORNING AND 1 TABLET BEFORE BEDTIME 180 tablet 1 polyethylene glycol (GLYCOLAX) 17 gram packet Take 17 g by mouth daily as needed (constipation). 30 packet 0 pravastatin (PRAVACHOL) 40 mg tablet TAKE 1 TABLET BY MOUTH IN THE MORNING 90 tablet 3 QUEtiapine (SEROQUEL) 25 mg tablet Take 1 tablet (25 mg total) by mouth daily with breakfast. 30 tablet 5 QUEtiapine (SEROquel) 50 mg tablet Take 1 tablet (50 mg total) by mouth nightly. 30 tablet 5 blood pressure monitor kit 1 each by miscellaneous route in the morning and at bedtime for 30 days. 1 each 0 furosemide (LASIX) 20 mg tablet Take 2 tablets (40 mg total) by mouth daily as needed (swelling of ankles). 60 tablet 2 No current facility-administered medications for this visit. Review of Systems Review of Systems Constitutional: Positive for fatigue. Negative for activity change, appetite change (eats very good), chills and fever. HENT: Negative for congestion. Respiratory: Negative for cough, shortness of breath (laying flat, walking) and wheezing. Cardiovascular: Positive for leg swelling (gross edema.). Negative for chest pain. Gastrointestinal: Negative for abdominal pain, diarrhea, nausea and vomiting. Skin: Negative for rash and wound. Psychiatric/Behavioral: Positive for confusion and sleep disturbance. Negative for agitation, self-injury and suicidal ideas. The patient is not nervous/anxious. Objective Vitals BP 132/82 Pulse 86 Temp 36.1 C (97 F) Ht 177.8 cm (5' 10 ) Wt 84.8 kg (187 lb) BMI 26.83 kg/m Physical Exam Physical Exam Constitutional: General: He is not in acute distress. Appearance: Normal appearance. He is well-developed and normal weight. He is not ill-appearing or diaphoretic. HENT: Head: Normocephalic and atraumatic. Right Ear: Hearing, tympanic membrane and ear canal normal. Left Ear: Hearing, tympanic membrane and ear canal normal. Nose: Nose normal. No congestion or rhinorrhea. Right Sinus: No maxillary sinus tenderness or frontal sinus tenderness. Left Sinus: No maxillary sinus tenderness or frontal sinus tenderness. Mouth/Throat: Mouth: Mucous membranes are moist. Dentition: Has dentures (upper and lower). Pharynx: Uvula midline. No oropharyngeal exudate. Eyes: General: Lids are normal. Right eye: No discharge. Left eye: No discharge. Extraocular Movements: Right eye: Normal extraocular motion. Left eye: Normal extraocular motion. Conjunctiva/sclera: Conjunctivae normal. Right eye: Right conjunctiva is not injected. No exudate. Left eye: Left conjunctiva is not injected. No exudate. Pupils: Pupils are equal, round, and reactive to light. Comments: Wears glasses Neck: Thyroid: No thyroid mass or thyromegaly. Vascular: Normal carotid pulses. No carotid bruit. Cardiovascular: Rate and Rhythm: Normal rate and regular rhythm. No extrasystoles are present. Pulses: Normal pulses. Carotid pulses are 2+ on the right side and 2+ on the left side. Heart sounds: Normal heart sounds, S1 normal and S2 normal. No murmur heard. Pulmonary: Effort: Pulmonary effort is normal. No respiratory distress. Breath sounds: Normal breath sounds. No wheezing. Abdominal: General: Bowel sounds are normal. Palpations: Abdomen is soft. There is no mass. Tenderness: There is no abdominal tenderness. Hernia: No hernia is present. Musculoskeletal: Cervical back: Normal range of motion and neck supple. Right lower leg: No edema. Left lower leg: No edema. Lymphadenopathy: Cervical: Right cervical: No superficial cervical adenopathy. Left cervical: No superficial cervical adenopathy. Upper Body: Right upper body: No supraclavicular adenopathy. Left upper body: No supraclavicular adenopathy. Skin: General: Skin is warm and dry. Capillary Refill: Capillary refill takes less than 2 seconds. Coloration: Skin is ashen. Skin is not cyanotic, jaundiced or mottled. Findings: No rash. Neurological: General: No focal deficit present. Mental Status: He is alert and oriented to person, place, and time. Cranial Nerves: No cranial nerve deficit. Sensory: No sensory deficit. Psychiatric: Attention and Perception: Attention normal. Mood and Affect: Mood normal. Mood is not elated. Affect is not blunt or angry. Speech: Speech normal. Behavior: Behavior is slowed. Behavior is not agitated. Thought Content: Thought content normal. Cognition and Memory: Cognition is impaired. Memory is impaired. He exhibits impaired recent memory. Comments: Pt does not recall me, my name after 10 years. Unsure of year, president. Does not know what town we are in. Talkative, smiling, weak, slow gait with cane. Isn't using his cane. Recent Pertinent Labs and Radiology Assessment/Plan 1. Medicare annual wellness visit, subsequent - POCT Glucose Fingerstick 2. Essential hypertension - Basic Metabolic Panel; Future 3. Encephalopathy - POCT Glucose Fingerstick 4. Stage 3b chronic kidney disease ([facility]) - Basic Metabolic Panel; Future 5. Bilateral leg edema - furosemide (LASIX) 20 mg tablet; Take 2 tablets (40 mg total) by mouth daily as needed (swelling of ankles). Dispense: 60 tablet; Refill: 2 - Incontinence supply 6. Mixed hyperlipidemia 7. Dementia with behavioral disturbance ([facility]) - POCT Glucose Fingerstick 8. Other specified abnormal findings of blood chemistry - POCT Glucose Fingerstick 9. Severe Alzheimer's dementia without behavioral disturbance, psychotic disturbance, mood disturbance, or anxiety, unspecified timing of dementia onset ([facility]) 10. Mild pulmonary hypertension ([facility]) 11. Atherosclerotic PVD with intermittent claudication ([facility]) Medications Discontinued During This Encounter Medication Reason furosemide (LASIX) 20 mg tablet Reorder Patient Instructions BMP today Return to lasix up to 40mg daily Incontinence supplies-depends Mata Sepulveda PA-C 11/28/23 1528 documented in this encounter [employer] Instructions 11-28-2023 Patient Instructions Note Date & Type Note Facility 11-28-2023 Instructions Mata Sepulveda PA-C - 11/28/2023 2:00 PM EST BMP today Return to lasix up to 40mg daily Incontinence supplies-depends End of life care, declines hospice, home health nurse will contact beautician apprentice. documented in this encounter [facility] History of Present illness Narrative 11-10-2023 Mata Sepulveda PA-C - 11/10/2023 1:30 PM EST Note Date & Type Note Facility 11-10-2023 History of Present illness Narrative Subjective Patient ID: Leatha Vila is a 88 y.o. male. Chief Complaint Chief Complaint Patient presents with Follow-up 3 month f/u, patient said was having a few minutes of chest pain this morning, no longer having chest pain HPI HPI Mr. Vila is a very pleasant, previously active, 88 y/o, 3 miles/day walker, sharp, fix anything man until about 2 years ago when memory declined after SD, MIGUEL, Hyperkalemia of 6.6 when he was admitted to [facility]. He comes in with his who is sales porter. Overall he has a gradually declining memory. Behaviors gradually worse. wants to keep him at the house. Giving seroquel 50mg at night and 25mg in AM. He has had mild, chronic leg swelling wax/wane. gives cardiac diet. He was taking lasix 20mg prn. has declined bar assistant, alaina. Wants to keep him comfortable. His behaviors/confusion improved with seroquel addition. Today: Gross leg edema, wt gain of 10 lbs, reports chest pains this morning but no current chest pain/diaphoresis/jaw pain. States he is short of breath sleeping at night and walking. gave him a single dose of lasix 20mg this am. However, she has not given him lasix in at least a week. Does not add salt to food. 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 Presumed 02/2021 when speed walking. Acute renal failure ([facility]) 06/13/2022 Hyperlipidemia Hypertension Peripheral vascular disease ([facility]) Dr. Gee at [facility] pletal Visual impairment wears glasses Wears dentures upper and lower Wears glasses Zoster 08/2017 Past Surgical History Past Surgical History: Procedure Laterality Date CATARACT EXTRACTION COLONOSCOPY Dr. [place]. Completed last c-scope PHACO KELMAN I IMPLANT INTRAOCULAR LENS Right 01/11/2019 Performed by Yee Figueroa MD at [facility] Family History Family History Problem Relation Age of Onset Blood Clots Mother Dementia Brother Heart attack Brother Other Daughter 14 ATV accident Social History Social History Socioeconomic History Marital status: Spouse name: Not on file Number of children: Not on file Years of education: Not on file Highest education level: Not on file Occupational History Not on file Tobacco Use Smoking status: Former Years: 10 Types: Cigarettes Smokeless tobacco: Never Substance and Sexual Activity Alcohol use: Yes Drug use: Never Sexual activity: Defer Other Topics Concern Not on file Social History Narrative Not on file Social Determinants of Health Financial Resource Strain: Not on file Food Insecurity: No Food Insecurity (05/05/2023) Hunger Screening Food Insecurity - Worry: Never True Food Insecurity - Inability: Never True Transportation Needs: Not on file Physical Activity: Not on file Stress: Not on file Social Connections: Not on file Interpersonal Safety: Not on file Allergies No Known Allergies Current Medications Current Outpatient Medications Medication Sig Dispense Refill amLODIPine (NORVASC) 5 mg tablet Take 1 tablet (5 mg total) by mouth in the morning. 30 tablet 5 folic acid/multivit-min/lutein (CENTRUM SILVER ORAL) Take 1 tablet by mouth in the morning. furosemide (LASIX) 20 mg tablet Take 1 tablet (20 mg total) by mouth daily as needed (swelling of ankles). 30 tablet 2 magnesium hydroxide (MILK OF MAGNESIA) 400 mg/5 mL suspension Take 30 mL by mouth nightly as needed. metoprolol tartrate (LOPRESSOR) 50 mg tablet TAKE 1 TABLET BY MOUTH IN THE MORNING AND 1 TABLET BEFORE BEDTIME 180 tablet 1 polyethylene glycol (GLYCOLAX) 17 gram packet Take 17 g by mouth daily as needed (constipation). 30 packet 0 pravastatin (PRAVACHOL) 40 mg tablet Take 1 tablet (40 mg total) by mouth in the morning. 90 tablet 1 QUEtiapine (SEROQUEL) 25 mg tablet Take 1 tablet (25 mg total) by mouth daily with breakfast. 30 tablet 5 QUEtiapine (SEROquel) 50 mg tablet Take 1 tablet (50 mg total) by mouth nightly. 30 tablet 5 blood pressure monitor kit 1 each by miscellaneous route in the morning and at bedtime for 30 days. 1 each 0 No current facility-administered medications for this visit. Review of Systems Review of Systems Constitutional: Positive for fatigue. Negative for activity change, appetite change (eats very good), chills and fever. HENT: Negative for congestion. Respiratory: Positive for shortness of breath (laying flat, walking). Negative for cough and wheezing. Cardiovascular: Positive for chest pain and leg swelling (gross edema.). Gastrointestinal: Negative for abdominal pain, diarrhea, nausea and vomiting. Skin: Negative for rash and wound. Psychiatric/Behavioral: Positive for agitation, confusion and sleep disturbance. Negative for self-injury and suicidal ideas. The patient is not nervous/anxious. Objective Vitals BP 136/74 Pulse 66 Temp 36.2 C (97.1 F) Ht 177.8 cm (5' 10 ) Wt 90.3 kg (199 lb) SpO2 94% BMI 28.55 kg/m Physical Exam Physical Exam Constitutional: General: He is not in acute distress. Appearance: Normal appearance. He is well-developed and normal weight. He is not ill-appearing or diaphoretic. HENT: Head: Normocephalic and atraumatic. Right Ear: Hearing, tympanic membrane and ear canal normal. Left Ear: Hearing, tympanic membrane and ear canal normal. Nose: Nose normal. No congestion or rhinorrhea. Right Sinus: No maxillary sinus tenderness or frontal sinus tenderness. Left Sinus: No maxillary sinus tenderness or frontal sinus tenderness. Mouth/Throat: Mouth: Mucous membranes are moist. Dentition: Has dentures (upper and lower). Pharynx: Uvula midline. No oropharyngeal exudate. Eyes: General: Lids are normal. Right eye: No discharge. Left eye: No discharge. Extraocular Movements: Right eye: Normal extraocular motion. Left eye: Normal extraocular motion. Conjunctiva/sclera: Conjunctivae normal. Right eye: Right conjunctiva is not injected. No exudate. Left eye: Left conjunctiva is not injected. No exudate. Pupils: Pupils are equal, round, and reactive to light. Comments: Wears glasses Neck: Thyroid: No thyroid mass or thyromegaly. Vascular: Normal carotid pulses. No carotid bruit. Cardiovascular: Rate and Rhythm: Normal rate and regular rhythm. No extrasystoles are present. Pulses: Normal pulses. Carotid pulses are 2+ on the right side and 2+ on the left side. Heart sounds: Normal heart sounds, S1 normal and S2 normal. No murmur heard. Pulmonary: Effort: Pulmonary effort is normal. No respiratory distress. Breath sounds: Normal breath sounds. No wheezing. Abdominal: General: Bowel sounds are normal. Palpations: Abdomen is soft. There is no mass. Tenderness: There is no abdominal tenderness. Hernia: No hernia is present. Musculoskeletal: Cervical back: Normal range of motion and neck supple. Right lower le+ Pitting Edema (+2 gross, pitting,sven, LE edema, symmetrical) present. Left lower le+ Pitting Edema present. Lymphadenopathy: Cervical: Right cervical: No superficial cervical adenopathy. Left cervical: No superficial cervical adenopathy. Upper Body: Right upper body: No supraclavicular adenopathy. Left upper body: No supraclavicular adenopathy. Skin: General: Skin is warm and dry. Findings: No rash. Neurological: Mental Status: He is alert and oriented to person, place, and time. Cranial Nerves: No cranial nerve deficit. Sensory: No sensory deficit. Psychiatric: Attention and Perception: Attention normal. Mood and Affect: Mood normal. Mood is not elated. Affect is not blunt or angry. Speech: Speech normal. Behavior: Behavior is slowed. Behavior is not agitated. Thought Content: Thought content normal. Cognition and Memory: Cognition is impaired. Memory is impaired. He exhibits impaired recent memory. Comments: Pt does not recall me, my name after 10 years. Unsure of year, president. Does not know what town we are in. Talkative, smiling, strong, good gait today. Isn't using his cane. Looks better than past few months. Recent Pertinent Labs and Radiology Assessment/Plan 1. Bilateral leg edema 2. BENZ (dyspnea on exertion) 3. Chest pain of unknown etiology Medications Discontinued During This Encounter Medication Reason lisinopriL (PRINIVIL,ZESTRIL) 40 mg tablet Therapy completed Patient Instructions DX Acute on chronic chf, fluid overload. Chest pain this am. Cannot r/o an event. To ED for EKG, troponins, BNP, D-dimer. May need admitted. Concern for renal failure, recurrent. Pt needs diuresis. Mata Sepulveda PA-C 11/10/23 1434 documented in this encounter [facility] Instructions 11-10-2023 Patient Instructions Note Date & Type Note Facility 11-10-2023 Instructions Mata Sepulveda PA-C - 11/10/2023 1:30 PM EST DX Acute on chronic chf, fluid overload. Chest pain this am. Cannot r/o an event. To ED for EKG, troponins, BNP, D-dimer. May need admitted. Concern for renal failure, recurrent. Pt needs diuresis. [facility] Note Date & Type Note Facility Evaluation note Diagnosis Bilateral leg edema- Primary Edema BENZ (dyspnea on exertion) Other dyspnea and respiratory abnormality Chest pain of unknown etiology documented in this encounter [facility] Evaluation note Note Date & Type Note Facility Evaluation note Diagnosis Medicare annual wellness visit, subsequent- Primary Essential hypertension Unspecified essential hypertension Encephalopathy Unspecified encephalopathy Stage 3b chronic kidney disease ([facility]) Bilateral leg edema Edema Mixed hyperlipidemia Dementia with behavioral disturbance ([facility]) Other specified abnormal findings of blood chemistry Severe Alzheimer's dementia without behavioral disturbance, psychotic disturbance, mood disturbance, or anxiety, unspecified timing of dementia onset ([facility]) Mild pulmonary hypertension ([facility]) 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 ([facility]) documented in this encounter [facility] Instructions Note Date & Type Note Facility Instructions Not on filedocumented in this en counter [facility] Instructions Note Date & Type Note Facility Instructions Not on filedocumented in this en counter [facility] Advance Directives No Advanced Directives Records FoundDocuments on File Type Date Recorded Patient Clinical Information Systems Director Expl anation DNR Physician Order 04/12/2023 6:39 AM Latest Code Status on File Code Status Date Activated Date Inactivated Comments DNR [facility] (DNRCC) [place] 03/30/2023 2:46 PM 023 7:19 PM Code Status History Code Status Date Activated Date Inactivated Comments Full Code 06/13/2022 4:36 PM 06/24/2022 7:16 PM Summary Purpose Family History No Family History Records FoundNo Family History Records FoundNo Family History Records Found Additional Source Comments Reason for Visit (unrecogniz ed section and content) Reason Comments Follow-up 3 month f/u, patient said was having a few minutes of chest pain this morning, no longer having chest pain Reason Comments Med Refill Reason Comments medicare wellness Care Teams (unrecognized sec tion and content) Nurse Practitioner Adult Relationship Specialty Start Date End Date Mata Sepulveda PA-C [address] [place] [address] PCP - General Physician Technician [employer] 07/16/22 Nurse Practitioner Adult Relationship Specialty Start Date End Date Mata Sepulveda PA-C [address] [place] [address] PCP - General Physician Technician [employer] 07/16/22 Nurse Practitioner Adult Relationship Specialty Start Date End Date Mata Sepulveda PA-C [address] [place] [address] PCP - General Physician Technician [employer] 07/16/22 Nurse Practitioner Adult Relationship Specialty Start Date End Date Mata Sepulveda PA-C [address] [place] [address] PCP - General Physician Technician [employer] 07/16/22 (unrecognized sect ion and content) No Status Records FoundNo Status Records FoundNo Status Records Found INFORMATION SOURCE (unrecogn ized section and content) DATE CREATED AUTHOR 03/16/2024 [facility] DATE CREATED AUTHOR AUTHOR'S ORGANIZ ATION 03/18/2024 [facility] DATE CREATED AUTHOR AUTHOR'S ORGANIZ ATION 04/02/2024 [facility] FOR RECORDS PERTAINING TO PATIENTS WHO ARE OR HAVE BEEN ENROLLED IN A CHEMICAL DEPENDENCY/SUBSTANCEABUSE PROGRAM, SOME INFORMATION MAY BE OMITTED. This clinical summary was aggregated from multiple sources. Caution should be exercised in using it in the provision of clinical care. This summary normalizes information from multiple sources, and as a consequence, information in this document may materially change the coding, format and clinical context of patient data. In addition, data may be omitted in some cases. CLINICAL DECISIONS SHOULD BE BASED ON THE PRIMARY CLINICAL RECORDS. [facility]. provides no warranty or guarantee of the accuracy or completeness of information in this document.
== END 2024-04-16 16:11 | disposition home or self-care (01) ==
LOC: WC 16:11
PROVIDERS: PCP Family Medicine; Visit Provider Physician Assistant
DX: L97.812 Non-pressure chronic ulcer of other part of right lower leg with fat layer exposed (principal)
CPT/HCPCS: G0463

== ENCOUNTER 2024-04-20 10:55 | Outpatient (REF) | payer MEDICARE, SELFPAY ==
[2024-04-20 11:38] LABS: Alanine Aminotransferase 25 U/L (16-63); Albumin Globulin Ratio 0.7; Albumin Level 2.8 g/dL (3.4-5.0); Alkaline Phosphatase 118 U/L (46-116); Anion Gap 12.7; Aspartate Amino Transferase 18 U/L (15-37); BUN Creatinine Ratio 21.9; Bilirubin Total 0.9 mg/dL (0.2-1.0); Calcium 8.9 mg/dL (8.5-10.1); Carbon Dioxide 30.5 mmol/L (21.0-32.0); Chloride 104 mmol/L (98-107); Estimated GFR (African America 59 (>=60); Estimated GFR (Non-African Ame 49 (>=60); Glucose 103 mg/dL (74-106); Potassium 4.2 mmol/L (3.5-5.1); Sodium 143 mmol/L (136-145); Total Protein 6.8 g/dL (6.4-8.2)
== END 2024-04-20 10:56 | disposition home or self-care (01) ==
LOC: LAB 10:55
PROVIDERS: PCP Family Medicine; Visit Provider Family Medicine
DX: I50.43 Acute on chronic combined systolic (congestive) and diastolic (congestive) heart failure (principal); E78.5 Hyperlipidemia, unspecified
CPT/HCPCS: 36415; 80053; 82306

== ENCOUNTER 2024-05-01 09:00 | Outpatient (OUT) | payer MEDICARE, SELFPAY ==
--- NOTE | 2024-05-01 09:42 | XR_ITS ---
[address] [address] Patient Name: LEATHA DELAROSA MRN: [id number] date: 1935 Sex: M Assigned Patient Location: RAD Current Patient Location: RAD Accession/Order Number: [id number] Exam Date: 05/01/2024 09:28 Report Date: 05/01/2024 10:10 At the request of: ABBY FELIZ Procedure: XR DEXA axial skeleton EXAMINATION: XR DEXA axial skeleton HISTORY: Age Related Osteoporosis COMPARISON: No relevant comparison available. TECHNIQUE: Dual-energy X-ray absorptiometry (DXA) was performed. FINDINGS: SPINE ANALYSIS: Average bone mineral density is 1.552 g/cm2. T-score (standard deviation relative to young adult mean): 2.6 . HIP ANALYSIS: Lowest bone mineral density is within the left femoral neck, 0.956 g/cm2. T-score (standard deviation relative to young adult mean): -0.9 . XR/XR DEXA axial skeleton IMPRESSION: [employer] Classification: Normal - Low Fracture Risk FRAX: Electronically authenticated by: LASHANDA ROY Date: 05/01/2024 10:10
== END 2024-05-01 09:01 | disposition home or self-care (01) ==
LOC: RAD 09:00
PROVIDERS: PCP Family Medicine; Visit Provider Nurse Practitioner Family
DX: M81.0 Age-related osteoporosis without current pathological fracture (principal)
CPT/HCPCS: 77080

== ENCOUNTER 2024-05-02 02:26 | Outpatient (REF) | payer MEDICARE, SELFPAY ==
--- OUTSIDE RECORDS SUMMARY | 2024-05-02 02:30 | XMS_ITS | CCD ---
Author Organization [facility] Care Team Providers Care Director State Pharmacy Name Role Phone Mata Sepulveda PA-C Primary Care Provider MATA SEPULVEDA Attending Unavailable MATA SEPULVEDA Referring Unavailable MATA SEPULVEDA Primary Care Unavailable MATA SEPULVEDA Attending Unavailable MATA SEPULVEDA Referring Unavailable MATA SEPULVEDA Primary Care Unavailable MATA SEPULVEDA Attending Unavailable MATA SEPULVEDA Referring Unavailable MATA SEPULVEDA Primary Care Unavailable MATA SEPULVEDA Referring Unavailabl e SEPULVEDA, MATA FELIZ Primary Care Unavailabl e SEPULVEDAMATA Referring Unavailabl e SEPULVEDA, MATA FELIZ Primary Care Unavailabl e SEPULVEDA, MATA Michael Primary Care Unavailable RADHA VALLES Attending Unavailable SANTOSH VILA Attending Unavailable SANT[place]H VILA Referring Unavailable MATA [...] Referring Unavailable MATA SEPULVEDA Primary Care Unavailable LAILA SINGLETON Attending Unavailable LAILA SINGLETON Referring Unavailable Medications Current Medications Medication Drug Class(es) Dates Sig (Normalized) Sig (Original) amLODIPine 5 mg oral tablet (4 sources) Dihydropyridine Calcium Channel Nevaeh Start: 08-11-2023 take 1 tablet by mouth in the [...] tablet 1 10/21/2023 Active polyethylene glycol 3350 58171 mg powder for oral solution (4 sources) Osmotic Laxative Start: 04-05-20 23 polyethylene glycol (GLYCOLAX) 17 gram packet Take 17 g by mouth daily as needed (constipation). 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[facility])] 11-28-2023 Chronic Chronic kidney disease (2 sources) [...] sources) Peripheral vascular disease; Translations: [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, unspecified [...] 03-19-20 ABSOLUTE BASOPHIL 0.1 X10E9/L Normal 0.0-0.2 [facility] Comment on above: Performed By: #### C BCA, CMP, 01262-4, 42824-0, 28605-5 #### [facility] ([id number]) [address] [place] [address], [place] [address] ABSOLUTE NEUTROPHIL 4.9 X10E9/L Normal 1.5-6.6 [facility] Comment on above: Performed By: #### C BCA, CMP, 84621-9, 78749-0, 69898-4 #### [facility] ([id number]) [address] [place] [address] 63246 Basophils/100 WBC (Bld) 1.2 % Normal [facility] Comment on above: Performed By: #### C BCA, CMP, 66173-6, 27683-1, 71316-0 #### [facility] ([id number]) [address] [place] [address] 95774 Eosinophils (Bld) [#/Vol] 0.2 10*3/uL Normal 0.0-0.4 [facility] Comment on above: Performed By: #### C BCA, CMP, 35957-6, 60566-8, 50947-0 #### [facility] ([id number]) [address] [place] [address] 09780 Eosinophils/100 WBC (Bld) 1.8 % Normal [facility] Comment on above: Performed By: #### C BCA, CMP, 23843-1, 98762-3, 19444-5 #### [facility] ([id number]) [address] [place] [address] 60723 Erythrocyte distribution width (RBC) [Ratio] 13.6 % Normal 11.5-15.0 [facility] Comment on above: Performed By: #### C BCA, CMP, 73586-6, 70913-2, 85460-5 #### [facility] ([id number]) [address] [place] [address] 94042 Hematocrit (Bld) [Volume fraction] 42.8 % Normal 39-49 [facility] Comment on above: Performed By: #### C BCA, CMP, 82779-8, 92337-4, 95319-3 #### [facility] ([id number]) [address] [place] [address] 40656 Hemoglobin (Bld) [Mass/Vol] 14.7 g/dL Normal 13.0-17.0 [facility] Comment on above: Performed By: #### C BCA, CMP, 31120-9, 39434-4, 69733-1 #### [facility] ([id number]) [address] [place] [address] 36062 Lymphocytes (Bld) [#/Vol] 3.4 10*3/uL Normal 1.0-3.5 [facility] Comment on above: Performed By: #### C BCA, CMP, 38713-8, 42235-8, 31281-8 #### [facility] ([id number]) [address] [place] [address] 45131 Lymphocytes/100 WBC (Bld) 34.4 % Normal [facility] Comment on above: Performed By: #### C BCA, CMP, 24740-6, 44383-3, 90710-2 #### [facility] ([id number]) [address] [place] [address] 30750 MCH (RBC) [Entitic mass] 31.4 pg Normal 27-34 [facility] Comment on above: Performed By: #### C BCA, CMP, 41834-5, 66182-0, 41842-0 #### [facility] ([id number]) [address] [place] [address] 44462 MCHC (RBC) [Mass/Vol] 34.5 g/dL Normal 32-36 [facility] Comment on above: Performed By: #### C BCA, CMP, 04817-5, 42999-1, 35308-7 #### [facility] ([id number]) [address] [place] [address] 83879 MCV (RBC) [Entitic vol] 91 fL Normal 80-100 [facility] Comment on above: Performed By: #### C BCA, CMP, 30134-5, 46936-9, 79841-1 #### [facility] ([id number]) [address] [place] [address] 54245 Monocytes (Bld) [#/Vol] 1.2 10*3/uL High 0-0.9 [facility] Comment on above: Performed By: #### C BCA, CMP, 95561-0, 14958-5, 20193-1 #### [facility] ([id number]) [address] [place] [address] 54074 Monocytes/100 WBC (Bld) 12.3 % Normal [facility] Comment on above: Performed By: #### C BCA, CMP, 47257-9, 83541-0, 00854-3 #### [facility] ([id number]) [address] [place] [address] 69497 Neutrophils/100 WBC (Bld) 50.3 % Normal [facility] Comment on above: Performed By: #### C BCA, CMP, 41741-5, 73963-9, 05886-6 #### [facility] ([id number]) [address] [place] [address] 22442 Platelet mean volume (Bld) [Entitic vol] 8.2 fL Normal 7-12 [facility] Comment on above: Performed By: #### C BCA, CMP, 29085-4, 35277-9, 10013-8 #### [facility] ([id number]) [address] [place] [address] 58832 Platelets (Bld) [#/Vol] 276 10*3/uL Normal 150-450 [facility] Comment on above: Performed By: #### C BCA, CMP, 63432-7, 40360-1, 51236-1 #### [facility] ([id number]) [address] [place] [address] 26459 RBC COUNT 4.69 X10E12/L Normal 4.10-5.70 [facility] Comment on above: Performed By: #### C BCA, CMP, 45865-5, 57106-8, 83645-9 #### [facility] ([id number]) [address] [place] [address] 32912 WBC (Bld) [#/Vol] 9.8 10*3/uL Normal 4.0-11.0 [facility] Comment on above: Performed By: #### C BCA, CMP, 88708-2, 97654-1, 77211-6 #### [facility] ([id number]) [address] [place] [address] 98122 COMPREHENSIVE METABOLIC PANE [facility] 03-19-2024 Albumin [Mass/Vol] 3.8 g/dL Normal 3.2-5.3 [facility] Comment on above: Performed By: #### C BCA, CMP, 36215-5, 69725-2, 00379-8 #### [facility] ([id number]) [address] [place] [address] 88252 ALP [Catalytic activity/Vol] 104 U/L Normal 39-130 [facility] Comment on above: Performed By: #### C BCA, CMP, 61768-7, 87877-6, 49387-6 #### [facility] ([id number]) [address] [place] [address] 21463 ALT [Catalytic activity/Vol] 20 U/L Normal 0-40 [facility] Comment on above: Performed By: #### C BCA, CMP, 95971-9, 95638-4, 23953-0 #### [facility] ([id number]) [address] [place] [address] 85693 Anion gap [Moles/Vol] 14 mmol/L Normal 5-15 [facility] Comment on above: Performed By: #### C BCA, CMP, 29694-0, 39855-2, 98469-8 #### [facility] ([id number]) [address] [place] [address] 71167 AST [Catalytic activity/Vol] 25 U/L Normal 0-41 [facility] Comment on above: Performed By: #### C BCA, CMP, 24697-5, 99865-7, 83219-3 #### [facility] ([id number]) [address] [place] [address] 14854 Bilirubin [Mass/Vol] 1.0 mg/dL Normal 0.3-1.2 [facility] Comment on above: Performed By: #### C BCA, CMP, 85015-2, 79198-5, 02130-8 #### [facility] ([id number]) [address] [place] [address] 22728 Calcium [Mass/Vol] 9.4 mg/dL Normal 8.5-10.5 [facility] Comment on above: Performed By: #### C BCA, CMP, 46974-7, 50732-0, 96707-9 #### [facility] ([id number]) [address] [place] [address] 82405 Chloride [Moles/Vol] 94 mmol/L Low 98-109 [facility] Comment on above: Performed By: #### C BCA, CMP, 75713-2, 74372-1, 51651-2 #### [facility] ([id number]) [address] [place] [address] 14288 CO2 [Moles/Vol] 29 mmol/L Normal 22-32 [facility] Comment on above: Performed By: #### C BCA, CMP, 72587-9, 54950-2, 10519-2 #### [facility] ([id number]) [address] [place] [address] 17097 Creatinine [Mass/Vol] 1.93 mg/dL High 0.70-1.20 [facility] Comment on above: Result Comment: METH OD TRACEABLE TO IDMS STANDARD Performed By: #### C CHARI, CMP, 44048-0, 19550-6, 86559-8 #### [facility] ([id number]) [address] [place] [address] 77377 GFR/1.73 sq M.predicted among non-blacks MDRD (S/P/Bld) [Vol rate/Area] 33 mL/min/{1.73_m2} Low >59 [facility] Comment on above: Result Comment: Reported eGFR is based on the CKD-EPI 2020 equation that does not use a race coefficient. Performed By: #### C CHARI, CMP, 99976-3, 21676-6, 69983-1 #### [facility] ([id number]) [address] [place] [address] 29595 Glucose [Mass/Vol] 111 mg/dL High 65-99 [facility] Comment on above: Performed By: #### C CHARI, CMP, 32974-6, 21550-0, 63954-0 #### [facility] ([id number]) [address] [place] [address] 94522 Potassium [Moles/Vol] 3.6 mmol/L Normal 3.5-5.0 [facility] Comment on above: Performed By: #### C CHARI, CMP, 79570-8, 69279-8, 58231-6 #### [facility] ([id number]) [address] [place] [address] 31129 Protein [Mass/Vol] 8.3 g/dL High 6.0-8.0 [facility] Comment on above: Performed By: #### C BCA, CMP, 92646-8, 65154-0, 60467-2 #### [facility] ([id number]) [address] [place] [address] 10909 Sodium [Moles/Vol] 137 mmol/L Normal 134-146 [facility] Comment on above: Performed By: #### C BCA, CMP, 29650-0, 77402-5, 34684-6 #### [facility] ([id number]) [address] [place] [address] 50076 Urea nitrogen [Mass/Vol] 64 mg/dL High 5-27 [facility] Comment on above: Performed By: #### C BCA, CMP, 30108-6, 53211-5, 11914-6 #### [facility] ([id number]) [address] [place] [address] 50520 MAGNESIUMon 03-19-2024 Magnesium [Mass/Vol] 2.2 mg/dL Normal 1.8-2.6 [facility] Comment on above: Performed By: #### C BCA, CMP, 19618-5, 42408-2, 76703-0 #### [facility] ([id number]) [address] [place] [address] 43055 CBC AND AUTO DIFFon 03-18-20 24 ABSOLUTE BASOPHIL 0.1 X10E9/L Normal 0.0-0.2 [facility] Comment on above: Performed By: #### C BCA, CMP, 88434-2, 43846-7, 43508-2 #### [facility] ([id number]) [address] [place] [address] 69625 ABSOLUTE NEUTROPHIL 6.6 X10E9/L Normal 1.5-6.6 [facility] Comment on above: Performed By: #### C BCA, CMP, 95389-5, 45455-7, 87240-9 #### [facility] ([id number]) [address] [place], [place] [address] Basophils/100 WBC (Bld) 0.6 % Normal [facility] Comment on above: Performed By: #### C BCA, CMP, 69655-0, 70017-9, 00995-8 #### [facility] ([id number]) [address] [place] [address] Eosinophils (Bld) [#/Vol] 0.1 10*3/uL Normal 0.0-0.4 [facility] Comment on above: Performed By: #### C BCA, CMP, 85083-2, 84457-7, 62902-6 #### [facility] ([id number]) [address] [place] [address] 19952 Eosinophils/100 WBC (Bld) 1.1 % Normal [facility] Comment on above: Performed By: #### C CHARI, CMP, 15506-7, 62274-3, 73814-2 #### [facility] ([id number]) [address] [place] [address] 77215 Erythrocyte distribution width (RBC) [Ratio] 13.7 % Normal 11.5-15.0 [facility] Comment on above: Performed By: #### C BCA, CMP, 50177-1, 02825-1, 29825-9 #### [facility] ([id number]) [address] [place] [address] 20587 Hematocrit (Bld) [Volume fraction] 44.0 % Normal 39-49 [facility] Comment on above: Performed By: #### C BCA, CMP, 23966-1, 74546-2, 93347-9 #### [facility] ([id number]) [address] [place] [address] 70980 Hemoglobin (Bld) [Mass/Vol] 14.9 g/dL Normal 13.0-17.0 [facility] Comment on above: Performed By: #### C BCA, CMP, 34467-9, 17140-4, 56466-8 #### [facility] ([id number]) [address] [place] [address] 47960 Lymphocytes (Bld) [#/Vol] 4.0 10*3/uL High 1.0-3.5 [facility] Comment on above: Performed By: #### C BCA, CMP, 65016-9, 50521-0, 94783-6 #### [facility] ([id number]) [address] [place] [address] 40695 Lymphocytes/100 WBC (Bld) 32.4 % Normal [facility] Comment on above: Performed By: #### C BCA, CMP, 02480-3, 95715-8, 31503-8 #### [facility] ([id number]) [address] [place] [address] 79047 MCH (RBC) [Entitic mass] 30.8 pg Normal 27-34 [facility] Comment on above: Performed By: #### C BCA, CMP, 17492-9, 77055-9, 98646-5 #### [facility] ([id number]) [address] [place] [address] 66434 MCHC (RBC) [Mass/Vol] 33.8 g/dL Normal 32-36 [facility] Comment on above: Performed By: #### C BCA, CMP, 68859-9, 88974-9, 25374-2 #### [facility] ([id number]) [address] [place] [address] 49410 MCV (RBC) [Entitic vol] 91 fL Normal 80-100 [facility] Comment on above: Performed By: #### C BCA, CMP, 16761-4, 90042-8, 95410-8 #### [facility] ([id number]) [address] [place] [address] 86256 Monocytes (Bld) [#/Vol] 1.4 10*3/uL High 0-0.9 [facility] Comment on above: Performed By: #### C BCA, CMP, 89081-6, 28021-1, 58057-5 #### [facility] ([id number]) [address] [place] [address] 47365 Monocytes/100 WBC (Bld) 11.4 % Normal [facility] Comment on above: Performed By: #### C BCA, CMP, 99177-0, 88209-6, 60658-8 #### [facility] ([id number]) [address] [place] [address] 46507 Neutrophils/100 WBC (Bld) 54.5 % Normal [facility] Comment on above: Performed By: #### C BCA, CMP, 85059-0, 30598-2, 94893-1 #### [facility] ([id number]) [address] [place] [address] 98360 Platelet mean volume (Bld) [Entitic vol] 8.6 fL Normal 7-12 [facility] Comment on above: Performed By: #### C BCA, CMP, 44670-7, 90563-4, 32020-8 #### [facility] ([id number]) [address] [place] [address] 93671 Platelets (Bld) [#/Vol] 280 10*3/uL Normal 150-450 [facility] Comment on above: Performed By: #### C BCA, CMP, 35382-3, 83715-7, 54391-0 #### [facility] ([id number]) [address] [place] [address] 90641 RBC COUNT 4.84 X10E12/L Normal 4.10-5.70 [facility] Comment on above: Performed By: #### C BCA, CMP, 14923-9, 01793-3, 46083-7 #### [facility] ([id number]) [address] [place] [address] 99535 WBC (Bld) [#/Vol] 12.2 10*3/uL High 4.0-11.0 [facility] Comment on above: Performed By: #### C BCA, CMP, 03871-6, 54603-3, 73796-8 #### [facility] ([id number]) [address] [place] [address] 85057 COMPREHENSIVE METABOLIC PANE Arthur 03-18-2024 Albumin [Mass/Vol] 4.1 g/dL Normal 3.2-5.3 [facility] Comment on above: Performed By: #### C BCA, CMP, 74755-1, 90199-4, 40194-8 #### [facility] ([id number]) [address] [place] [address] 49669 ALP [Catalytic activity/Vol] 105 U/L Normal 39-130 [facility] Comment on above: Performed By: #### C BCA, CMP, 91681-0, 36559-1, 91096-2 #### [facility] ([id number]) [address] [place] [address] 54905 ALT [Catalytic activity/Vol] 17 U/L Normal 0-40 [facility] Comment on above: Performed By: #### C BCA, CMP, 59926-7, 53307-8, 64694-9 #### [facility] ([id number]) [address] [place] [address] 46469 Anion gap [Moles/Vol] 17 mmol/L High 5-15 [facility] Comment on above: Performed By: #### C BCA, CMP, 51942-6, 14655-2, 41845-6 #### [facility] ([id number]) [address] [place] [address] 60468 AST [Catalytic activity/Vol] 30 U/L Normal 0-41 [facility] Comment on above: Performed By: #### C BCA, CMP, 68680-5, 19690-6, 74065-5 #### [facility] ([id number]) [address] [place] [address] 56170 Bilirubin [Mass/Vol] 1.2 mg/dL Normal 0.3-1.2 [facility] Comment on above: Performed By: #### C BCA, CMP, 26490-2, 08476-5, 42397-9 #### [facility] ([id number]) [address] [place] [address] 82089 Calcium [Mass/Vol] 9.7 mg/dL Normal 8.5-10.5 [facility] Comment on above: Performed By: #### C BCA, CMP, 71242-5, 58550-5, 34354-6 #### [facility] ([id number]) [address] [place] [address] 16612 Chloride [Moles/Vol] 94 mmol/L Low 98-109 [facility] Comment on above: Performed By: #### C BCA, CMP, 52707-8, 86294-2, 74494-7 #### [facility] ([id number]) [address] [place] [address] 03352 CO2 [Moles/Vol] 29 mmol/L Normal 22-32 [facility] Comment on above: Performed By: #### C BCA, CMP, 64495-8, 59284-8, 49790-9 #### [facility] ([id number]) [address] [place] [address] 76266 Creatinine [Mass/Vol] 1.98 mg/dL High 0.70-1.20 [facility] Comment on above: Result Comment: METH OD TRACEABLE TO IDMS STANDARD Performed By: #### C BCA, CMP, 74268-5, 43721-8, 66123-7 #### [facility] ([id number]) [address] [place] [address] 58079 GFR/1.73 sq M.predicted among non-blacks MDRD (S/P/Bld) [Vol rate/Area] 32 mL/min/{1.73_m2} Low >59 [facility] Comment on above: Result Comment: Reported eGFR is based on the CKD-EPI 2020 equation that does not use a race coefficient. Performed By: #### C BCA, CMP, 18907-8, 16366-4, 59133-4 #### [facility] ([id number]) [address] [place] [address] 14897 Glucose [Mass/Vol] 124 mg/dL High 65-99 [facility] Comment on above: Performed By: #### C BCA, CMP, 19721-1, 93318-5, 92847-3 #### [facility] ([id number]) [address] [place] [address] 77539 Potassium [Moles/Vol] 4.3 mmol/L Normal 3.5-5.0 [facility] Comment on above: Performed By: #### C BCA, CMP, 46783-6, 80832-1, 93024-2 #### [facility] ([id number]) [address] [place] [address] 07407 Protein [Mass/Vol] 8.5 g/dL High 6.0-8.0 [facility] Comment on above: Performed By: #### C BCA, CMP, 67566-9, 96659-6, 54297-9 #### [facility] ([id number]) [address] [place] [address] 41536 Sodium [Moles/Vol] 140 mmol/L Normal 134-146 [facility] Comment on above: Performed By: #### C BCA, CMP, 79798-4, 87321-1, 86586-3 #### [facility] ([id number]) [address] [place] [address] 47758 Urea nitrogen [Mass/Vol] 57 mg/dL High 5-27 [facility] Comment on above: Performed By: #### C BCA, CMP, 14119-5, 97376-2, 46892-2 #### [facility] ([id number]) [address] [place] [address] 89400 MAGNESIUMon 03-18-2024 Magnesium [Mass/Vol] 2.1 mg/dL Normal 1.8-2.6 [facility] Comment on above: Performed By: #### C BCA, CMP, 27100-8, 32870-4, 48586-5 #### [facility] ([id number]) [address] [place] [address] 34484 CBC AND AUTO DIFFon 03-17-20 ABSOLUTE BASOPHIL 0.1 X10E9/L Normal 0.0-0.2 [facility] Comment on above: Performed By: #### C BCA, CMP, 39642-3, 87781-7, 85848-9 #### [facility] ([id number]) [address] [place] [address] 93634 ABSOLUTE NEUTROPHIL 4.5 X10E9/L Normal 1.5-6.6 [facility] Comment on above: Performed By: #### C BCA, CMP, 64081-7, 56073-8, 28179-2 #### [facility] ([id number]) [address] [place] [address] 50714 Basophils/100 WBC (Bld) 0.6 % Normal [facility] Comment on above: Performed By: #### C BCA, CMP, 04066-6, 53135-2, 82569-4 #### [facility] ([id number]) [address] [place] [address] 30813 Eosinophils (Bld) [#/Vol] 0.2 10*3/uL Normal 0.0-0.4 [facility] Comment on above: Performed By: #### C BCA, CMP, 99091-6, 28247-8, 07098-1 #### [facility] ([id number]) [address] [place] [address] 83513 Eosinophils/100 WBC (Bld) 2.3 % Normal [facility] Comment on above: Performed By: #### C BCA, CMP, 58006-1, 37195-2, 99867-2 #### [facility] ([id number]) [address] [place] [address] 82101 Erythrocyte distribution width (RBC) [Ratio] 13.9 % Normal 11.5-15.0 [facility] Comment on above: Performed By: #### C BCA, CMP, 99322-9, 68295-6, 28256-8 #### [facility] ([id number]) [address] [place] [address] 05204 Hematocrit (Bld) [Volume fraction] 40.3 % Normal 39-49 [facility] Comment on above: Performed By: #### C BCA, CMP, 53016-1, 29071-9, 51711-8 #### [facility] ([id number]) [address] [place] [address] 88716 Hemoglobin (Bld) [Mass/Vol] 13.8 g/dL Normal 13.0-17.0 [facility] Comment on above: Performed By: #### C BCA, CMP, 89134-3, 64410-4, 70862-5 #### [facility] ([id number]) [address] [place] [address] 96578 Lymphocytes (Bld) [#/Vol] 3.5 10*3/uL Normal 1.0-3.5 [facility] Comment on above: Performed By: #### C BCA, CMP, 37863-8, 78636-3, 23704-5 #### [facility] ([id number]) [address] [place] [address] 44982 Lymphocytes/100 WBC (Bld) 37.5 % Normal [facility] Comment on above: Performed By: #### C BCA, CMP, 86559-8, 08405-1, 50994-3 #### [facility] ([id number]) [address] [place] [address] 30538 MCH (RBC) [Entitic mass] 31.2 pg Normal 27-34 [facility] Comment on above: Performed By: #### C BCA, CMP, 01165-3, 91764-4, 26336-4 #### [facility] ([id number]) [address] [place] [address] 85208 MCHC (RBC) [Mass/Vol] 34.3 g/dL Normal 32-36 [facility] Comment on above: Performed By: #### C BCA, CMP, 64744-7, 34611-7, 01207-7 #### [facility] ([id number]) [address] [place] [address] 17624 MCV (RBC) [Entitic vol] 91 fL Normal 80-100 [facility] Comment on above: Performed By: #### C BCA, CMP, 03789-6, 40614-9, 53010-6 #### [facility] ([id number]) [address] [place] [address] 52713 Monocytes (Bld) [#/Vol] 1.1 10*3/uL High 0-0.9 [facility] Comment on above: Performed By: #### C BCA, CMP, 55539-5, 37424-5, 18735-9 #### [facility] ([id number]) [address] [place] [address] 66183 Monocytes/100 WBC (Bld) 11.9 % Normal [facility] Comment on above: Performed By: #### C BCA, CMP, 16213-9, 44774-6, 83111-0 #### [facility] ([id number]) [address] [place] [address] 58615 Neutrophils/100 WBC (Bld) 47.7 % Normal [facility] Comment on above: Performed By: #### C BCA, CMP, 55629-7, 46357-6, 73315-8 #### [facility] ([id number]) [address] [place] [address] 38932 Platelet mean volume (Bld) [Entitic vol] 8.6 fL Normal 7-12 [facility] Comment on above: Performed By: #### C BCA, CMP, 27896-6, 67093-0, 25225-9 #### [facility] ([id number]) [address] [place] [address] 35925 Platelets (Bld) [#/Vol] 252 10*3/uL Normal 150-450 [facility] Comment on above: Performed By: #### C BCA, CMP, 64253-3, 50665-8, 50404-0 #### [facility] ([id number]) [address] [place] [address] 57183 RBC COUNT 4.42 X10E12/L Normal 4.10-5.70 [facility] Comment on above: Performed By: #### C BCA, CMP, 03025-2, 35224-8, 79553-3 #### [facility] ([id number]) [address] [place] [address] 28607 WBC (Bld) [#/Vol] 9.4 10*3/uL Normal 4.0-11.0 [facility] Comment on above: Performed By: #### C BCA, CMP, 90608-6, 53905-5, 13167-5 #### [facility] ([id number]) [address] [place] [address] 15420 COMPREHENSIVE METABOLIC PANE Arthur 03-17-2024 Albumin [Mass/Vol] 3.9 g/dL Normal 3.2-5.3 [facility] Comment on above: Performed By: #### C BCA, CMP, 56946-6, 26595-6, 93837-9 #### [facility] ([id number]) [address] [place] [address] 26047 ALP [Catalytic activity/Vol] 101 U/L Normal 39-130 [facility] Comment on above: Performed By: #### C BCA, CMP, 04543-1, 93889-1, 62165-4 #### [facility] ([id number]) [address] [place] [address] 04554 ALT [Catalytic activity/Vol] 15 U/L Normal 0-40 [facility] Comment on above: Performed By: #### C BCA, CMP, 08570-3, 41113-3, 85913-2 #### [facility] ([id number]) [address] [place] [address] 98450 Anion gap [Moles/Vol] 11 mmol/L Normal 5-15 [facility] Comment on above: Performed By: #### C BCA, CMP, 15275-1, 38130-7, 68952-7 #### [facility] ([id number]) [address] [place] [address] 92804 AST [Catalytic activity/Vol] 24 U/L Normal 0-41 [facility] Comment on above: Performed By: #### C BCA, CMP, 59570-3, 61247-0, 55236-6 #### [facility] ([id number]) [address] [place] [address] 73609 Bilirubin [Mass/Vol] 1.2 mg/dL Normal 0.3-1.2 [facility] Comment on above: Performed By: #### C BCA, CMP, 46855-2, 56705-0, 96906-1 #### [facility] ([id number]) [address] [place] [address] 78397 Calcium [Mass/Vol] 9.2 mg/dL Normal 8.5-10.5 [facility] Comment on above: Performed By: #### C BCA, CMP, 79881-8, 00844-4, 18765-3 #### [facility] ([id number]) [address] [place] [address] Chloride [Moles/Vol] 94 mmol/L Low 98-109 [facility] Comment on above: Performed By: #### C BCA, CMP, 01460-7, 19707-5, 28363-8 #### [facility] ([id number]) [address] [place] [address] 95791 CO2 [Moles/Vol] 30 mmol/L Normal 22-32 [facility] Comment on above: Performed By: #### C BCA, CMP, 33604-9, 25543-2, 01541-3 #### [facility] ([id number]) [address] [place] [address] 69562 Creatinine [Mass/Vol] 1.93 mg/dL High 0.70-1.20 [facility] Comment on above: Result Comment: METH OD TRACEABLE TO IDMS STANDARD Performed By: #### C BCA, CMP, , 56856-4, 57937-9 #### [facility] ([id number]) [address] [place] [address] 46610 GFR/1.73 sq M.predicted among non-blacks MDRD (S/P/Bld) [Vol rate/Area] 33 mL/min/{1.73_m2} Low >59 [facility] Comment on above: Result Comment: Reported eGFR is based on the CKD-EPI 2020 equation that does not use a race coefficient. Performed By: #### C BCA, CMP, , 43731-5, 29925-4 #### [facility] ([id number]) [address] [place] [address] 99957 Glucose [Mass/Vol] 113 mg/dL High 65-99 [facility] Comment on above: Performed By: #### C BCA, CMP, 36236-3, 21102-3, 65276-7 #### [facility] ([id number]) [address] [place] [address] 37194 Potassium [Moles/Vol] 3.7 mmol/L Normal 3.5-5.0 [facility] Comment on above: Performed By: #### C BCA, CMP, , 78337-3, 98522-3 #### [facility] ([id number]) [address] [place] [address] 51697 Protein [Mass/Vol] 8.1 g/dL High 6.0-8.0 [facility] Comment on above: Performed By: #### C BCA, CMP, , 81250-1, 61407-6 #### [facility] ([id number]) [address] [place] [address] 72173 Sodium [Moles/Vol] 135 mmol/L Normal 134-146 [facility] Comment on above: Performed By: #### C BCA, CMP, , 17824-3, 13554-3 #### [facility] ([id number]) [address] [place] [address] 14012 Urea nitrogen [Mass/Vol] 49 mg/dL High 5-27 [facility] Comment on above: Performed By: #### C BCA, CMP, , 01991-8, 52496-1 #### [facility] ([id number]) [address] [place] [address] 22445 MAGNESIUMon 03-17-2024 Magnesium [Mass/Vol] 1.9 mg/dL Normal 1.8-2.6 [facility] Comment on above: Performed By: #### C BCA, CMP, , 54218-6, 52963-5 #### [facility] ([id number]) [address] [place] [address] 83052 POTASSIUMon 03-17-2024 Potassium [Moles/Vol] 3.9 mmol/L Normal 3.5-5.0 [facility] Comment on above: Performed By: #### C BCA, CMP, , 23147-8, 75164-9 #### [facility] ([id number]) [address] [place] [address] 88087 CBC AND AUTO DIFFon 03-16-20 24 ABSOLUTE BASOPHIL 0.0 X10E9/L Normal 0.0-0.2 [facility] Comment on above: Performed By: #### C BCA, CMP, 16601-6, 24573-9, 32690-2 #### [facility] ([id number]) [address] [place] [address] 13300 ABSOLUTE NEUTROPHIL 6.0 X10E9/L Normal 1.5-6.6 [facility] Comment on above: Performed By: #### C BCA, CMP, 04414-6, 14554-9, 19157-0 #### [facility] ([id number]) [address] [place] [address] 88648 Basophils/100 WBC (Bld) 0.4 % Normal [facility] Comment on above: Performed By: #### C BCA, CMP, 24038-9, 09024-1, 34707-4 #### [facility] ([id number]) [address] [place] [address] 30836 Eosinophils (Bld) [#/Vol] 0.1 10*3/uL Normal 0.0-0.4 [facility] Comment on above: Performed By: #### C BCA, CMP, 81639-8, 12797-2, 64314-1 #### [facility] ([id number]) [address] [place] [address] 98570 Eosinophils/100 WBC (Bld) 0.6 % Normal [facility] Comment on above: Performed By: #### C BCA, CMP, 02101-5, 31201-8, 49409-3 #### [facility] ([id number]) [address] [place] [address] 21578 Erythrocyte distribution width (RBC) [Ratio] 13.9 % Normal 11.5-15.0 [facility] Comment on above: Performed By: #### C BCA, CMP, 62940-7, 61646-9, 09635-8 #### [facility] ([id number]) [address] [place] [address] 19723 Hematocrit (Bld) [Volume fraction] 38.0 % Low 39-49 [facility] Comment on above: Performed By: #### C BCA, CMP, 90597-0, 48346-8, 28034-4 #### [facility] ([id number]) [address] [place] [address] 63691 Hemoglobin (Bld) [Mass/Vol] 13.2 g/dL Normal 13.0-17.0 [facility] Comment on above: Performed By: #### Vijaya BCA, CMP, 68559-0, 63521-8, 45881-8 #### [facility] ([id number]) [address] [place] [address] 36478 Lymphocytes (Bld) [#/Vol] 3.1 10*3/uL Normal 1.0-3.5 [facility] Comment on above: Performed By: #### C BCA, CMP, 91596-9, 66321-7, 76111-2 #### [facility] ([id number]) [address] [place] [address] 06788 Lymphocytes/100 WBC (Bld) 29.5 % Normal [facility] Comment on above: Performed By: #### C BCA, CMP, 11474-2, 54299-2, 97973-0 #### [facility] ([id number]) [address] [place] [address] 56613 MCH (RBC) [Entitic mass] 31.5 pg Normal 27-34 [facility] Comment on above: Performed By: #### Vijaya BCA, CMP, 67457-0, 31955-3, 83993-0 #### [facility] ([id number]) [address] [place] [address] 71328 MCHC (RBC) [Mass/Vol] 34.8 g/dL Normal 32-36 [facility] Comment on above: Performed By: #### C BCA, CMP, 18494-5, 18689-7, 94579-9 #### [facility] ([id number]) [address] [place] [address] 28045 MCV (RBC) [Entitic vol] 90 fL Normal 80-100 [facility] Comment on above: Performed By: #### C BCA, CMP, 84958-4, 08466-4, 51151-0 #### [facility] ([id number]) [address] [place] [address] 97244 Monocytes (Bld) [#/Vol] 1.2 10*3/uL High 0-0.9 [facility] Comment on above: Performed By: #### C BCA, CMP, 78872-2, 82303-3, 63265-2 #### [facility] ([id number]) [address] [place] [address] 62051 Monocytes/100 WBC (Bld) 11.6 % Normal [facility] Comment on above: Performed By: #### C BCA, CMP, 93428-4, 97464-7, 28002-0 #### [facility] ([id number]) [address] [place] [address] 52754 Neutrophils/100 WBC (Bld) 57.9 % Normal [facility] Comment on above: Performed By: #### C BCA, CMP, 85608-1, 12924-1, 12283-7 #### [facility] ([id number]) [address] [place] [address] 10140 Platelet mean volume (Bld) [Entitic vol] 8.4 fL Normal 7-12 [facility] Comment on above: Performed By: #### C BCA, CMP, 27093-9, 58680-3, 05930-5 #### [facility] ([id number]) [address] [place] [address] 06394 Platelets (Bld) [#/Vol] 253 10*3/uL Normal 150-450 [facility] Comment on above: Performed By: #### C BCA, CMP, 05732-3, 98353-3, 60596-8 #### [facility] ([id number]) [address] [place] [address] 97175 RBC COUNT 4.21 X10E12/L Normal 4.10-5.70 [facility] Comment on above: Performed By: #### C BCA, CMP, 16023-6, 98184-2, 78717-3 #### [facility] ([id number]) [address] [place] [address] 01141 WBC (Bld) [#/Vol] 10.4 10*3/uL Normal 4.0-11.0 [facility] Comment on above: Performed By: #### C BCA, CMP, 86351-5, 13189-8, 03201-5 #### [facility] ([id number]) [address] [place] [address] 38473 COMPREHENSIVE METABOLIC PANE Arthur 03-16-2024 Albumin [Mass/Vol] 3.9 g/dL Normal 3.2-5.3 [facility] Comment on above: Performed By: #### C BCA, CMP, 29614-7, 95313-7, 00926-8 #### [facility] ([id number]) [address] [place] [address] 85935 ALP [Catalytic activity/Vol] 95 U/L Normal 39-130 [facility] Comment on above: Performed By: #### C BCA, CMP, 13519-3, 68966-6, 52124-9 #### [facility] ([id number]) [address] [place] [address] 39731 ALT [Catalytic activity/Vol] 13 U/L Normal 0-40 [facility] Comment on above: Performed By: #### C BCA, CMP, 68948-3, 35655-7, 30335-8 #### [facility] ([id number]) [address] [place] [address] 38358 Anion gap [Moles/Vol] 12 mmol/L Normal 5-15 [facility] Comment on above: Performed By: #### C BCA, CMP, 44954-3, 33123-2, 18007-6 #### [facility] ([id number]) [address] [place] [address] 84677 AST [Catalytic activity/Vol] 23 U/L Normal 0-41 [facility] Comment on above: Performed By: #### C BCA, CMP, 39493-1, 75466-7, 20058-3 #### [facility] ([id number]) [address] [place] [address] 89240 Bilirubin [Mass/Vol] 1.2 mg/dL Normal 0.3-1.2 [facility] Comment on above: Performed By: #### C BCA, CMP, 92062-2, 70463-3, 16736-7 #### [facility] ([id number]) [address] [place] [address] 60574 Calcium [Mass/Vol] 9.1 mg/dL Normal 8.5-10.5 [facility] Comment on above: Performed By: #### C BCA, CMP, 83234-3, 32483-7, 27847-8 #### [facility] ([id number]) [address] [place] [address] 27792 Chloride [Moles/Vol] 98 mmol/L Normal 98-109 [facility] Comment on above: Performed By: #### C BCA, CMP, 66554-6, 53671-7, 61547-9 #### [facility] ([id number]) [address] [place] [address] 56610 CO2 [Moles/Vol] 28 mmol/L Normal 22-32 [facility] Comment on above: Performed By: #### C BCA, CMP, 35324-6, 71070-5, 47400-7 #### [facility] ([id number]) [address] [place] [address] 63026 Creatinine [Mass/Vol] 1.67 mg/dL High 0.70-1.20 [facility] Comment on above: Result Comment: METH OD TRACEABLE TO IDMS STANDARD Performed By: #### C BCA, CMP, , 63131-3, 89464-4 #### [facility] ([id number]) [address] [place] [address] 60710 GFR/1.73 sq M.predicted among non-blacks MDRD (S/P/Bld) [Vol rate/Area] 39 mL/min/{1.73_m2} Low >59 [facility] Comment on above: Result Comment: Reported eGFR is based on the CKD-EPI 2020 equation that does not use a race coefficient. Performed By: #### C BCA, CMP, , 40579-8, 91696-6 #### [facility] ([id number]) [address] [place] [address] 46087 Glucose [Mass/Vol] 122 mg/dL High 65-99 [facility] Comment on above: Performed By: #### C BCA, CMP, , 60048-1, 78167-8 #### [facility] ([id number]) [address] [place] [address] 37033 Potassium [Moles/Vol] 3.9 mmol/L Normal 3.5-5.0 [facility] Comment on above: Performed By: #### C BCA, CMP, , 96309-8, 10017-2 #### [facility] ([id number]) [address] [place] [address] 71833 Protein [Mass/Vol] 7.5 g/dL Normal 6.0-8.0 [facility] Comment on above: Performed By: #### C BCA, CMP, 45974-0, 75614-9, 96542-6 #### [facility] ([id number]) [address] [place] [address] 08894 Sodium [Moles/Vol] 138 mmol/L Normal 134-146 [facility] Comment on above: Performed By: #### C BCA, CMP, 31508-7, 02810-6, 24474-9 #### [facility] ([id number]) [address] [place] [address] 72466 Urea nitrogen [Mass/Vol] 44 mg/dL High 5-27 [facility] Comment on above: Performed By: #### C BCA, CMP, 92981-8, 17555-2, 35036-1 #### [facility] ([id number]) [address] [place] [address] 29720 MAGNESIUMon 03-16-2024 Magnesium [Mass/Vol] 1.9 mg/dL Normal 1.8-2.6 [facility] Comment on above: Performed By: #### C BCA, CMP, 01630-8, 09895-3, 14007-6 #### [facility] ([id number]) [address] [place] [address] 15924 CBC AND AUTO DIFFon 03-15-20 24 ABSOLUTE BASOPHIL 0.1 X10E9/L Normal 0.0-0.2 [facility] Comment on above: Performed By: #### C BCA, CMP, 34550-2, 62650-6, 75777-5 #### [facility] ([id number]) [address] [place] [address] 49947 ABSOLUTE NEUTROPHIL 5.1 X10E9/L Normal 1.5-6.6 [facility] Comment on above: Performed By: #### C BCA, CMP, 16636-6, 76676-6, 55562-8 #### [facility] ([id number]) [address] [place] [address] 77765 Basophils/100 WBC (Bld) 0.6 % Normal [facility] Comment on above: Performed By: #### C BCA, CMP, 07421-2, 41227-6, 80506-4 #### [facility] ([id number]) [address] [place] [address] 46614 Eosinophils (Bld) [#/Vol] 0.1 10*3/uL Normal 0.0-0.4 [facility] Comment on above: Performed By: #### C BCA, CMP, 53101-0, 73080-1, 59154-8 #### [facility] ([id number]) [address] [place] [address] 36269 Eosinophils/100 WBC (Bld) 0.8 % Normal [facility] Comment on above: Performed By: #### C BCA, CMP, 15321-6, 70892-5, 70195-8 #### [facility] ([id number]) [address] [place] [address] 82322 Erythrocyte distribution width (RBC) [Ratio] 13.7 % Normal 11.5-15.0 [facility] Comment on above: Performed By: #### C BCA, CMP, 78746-9, 85611-8, 06776-5 #### [facility] ([id number]) [address] [place] [address] 55390 Hematocrit (Bld) [Volume fraction] 38.5 % Low 39-49 [facility] Comment on above: Performed By: #### C BCA, CMP, 03126-5, 96287-8, 24232-1 #### [facility] ([id number]) [address] [place] [address] 85286 Hemoglobin (Bld) [Mass/Vol] 13.4 g/dL Normal 13.0-17.0 [facility] Comment on above: Performed By: #### C BCA, CMP, 93784-4, 20094-2, 02599-1 #### [facility] ([id number]) [address] [place] [address] 40252 Lymphocytes (Bld) [#/Vol] 2.8 10*3/uL Normal 1.0-3.5 [facility] Comment on above: Performed By: #### C BCA, CMP, 44582-1, 45053-7, 49305-9 #### [facility] ([id number]) [address] [place] [address] 57769 Lymphocytes/100 WBC (Bld) 31.9 % Normal [facility] Comment on above: Performed By: #### C BCA, CMP, 08783-2, 08721-7, 44189-4 #### [facility] ([id number]) [address] [place] [address] 18783 MCH (RBC) [Entitic mass] 31.6 pg Normal 27-34 [facility] Comment on above: Performed By: #### C BCA, CMP, 88864-1, 34296-9, 15167-3 #### [facility] ([id number]) [address] [place] [address] 47404 MCHC (RBC) [Mass/Vol] 34.8 g/dL Normal 32-36 [facility] Comment on above: Performed By: #### C BCA, CMP, 35511-6, 94008-0, 46025-1 #### [facility] ([id number]) [address] [place] [address] 47618 MCV (RBC) [Entitic vol] 91 fL Normal 80-100 [facility] Comment on above: Performed By: #### C BCA, CMP, 11420-5, 86654-2, 36513-3 #### [facility] ([id number]) [address] [place] [address] 40974 Monocytes (Bld) [#/Vol] 0.9 10*3/uL Normal 0-0.9 [facility] Comment on above: Performed By: #### C BCA, CMP, 85918-9, 24955-4, 41753-0 #### [facility] ([id number]) [address] [place] [address] 38015 Monocytes/100 WBC (Bld) 9.7 % Normal [facility] Comment on above: Performed By: #### C BCA, CMP, 97833-3, 98899-8, 66807-4 #### [facility] ([id number]) [address] [place] [address] 60310 Neutrophils/100 WBC (Bld) 57.0 % Normal [facility] Comment on above: Performed By: #### C BCA, CMP, 32180-2, 64635-3, 96569-2 #### [facility] ([id number]) [address] [place] [address] 59274 Platelet mean volume (Bld) [Entitic vol] 8.8 fL Normal 7-12 [facility] Comment on above: Performed By: #### Vijaya BCA, CMP, 42229-9, 49310-4, 15169-8 #### [facility] ([id number]) [address] [place] [address] 65135 Platelets (Bld) [#/Vol] 247 10*3/uL Normal 150-450 [facility] Comment on above: Performed By: #### C BCA, CMP, 55933-2, 33992-0, 09116-5 #### [facility] ([id number]) [address] [place] [address] 44239 RBC COUNT 4.24 X10E12/L Normal 4.10-5.70 [facility] Comment on above: Performed By: #### C BCA, CMP, 83707-8, 68669-8, 58025-2 #### [facility] ([id number]) [address] [place] [address] 88553 WBC (Bld) [#/Vol] 8.9 10*3/uL Normal 4.0-11.0 [facility] Comment on above: Performed By: #### C BCA, CMP, 00168-5, 48738-3, 62815-3 #### [facility] ([id number]) [address] [place] [address] 28508 COMPLEMENT PROFILEon 024 COMPLEMENT C3 158 mg/dL Normal 86-184 [facility] Comment on above: Performed By: #### C BCA, CMP, 55428-6, 50626-1, 03360-0 #### [facility] ([id number]) [address] [place] [address] 91157 COMPLEMENT C4 36 mg/dL Normal 16-47 [facility] Comment on above: Performed By: #### C BCA, CMP, 56007-2, 52555-2, 22111-9 #### [facility] ([id number]) [address] [place] [address] 18802 COMPREHENSIVE METABOLIC PANE Arthur 03-15-2024 Albumin [Mass/Vol] 3.8 g/dL Normal 3.2-5.3 [facility] Comment on above: Performed By: #### C BCA, CMP, 60251-0, 46311-1, 87004-5 #### [facility] ([id number]) [address] [place] [address] 85519 ALP [Catalytic activity/Vol] 103 U/L Normal 39-130 [facility] Comment on above: Performed By: #### C BCA, CMP, 91650-3, 47142-3, 74195-7 #### [facility] ([id number]) [address] [place] [address] 15141 ALT [Catalytic activity/Vol] 13 U/L Normal 0-40 [facility] Comment on above: Performed By: #### C BCA, CMP, 41688-0, 55029-3, 68857-2 #### [facility] ([id number]) [address] [place] [address] 74603 Anion gap [Moles/Vol] 14 mmol/L Normal 5-15 [facility] Comment on above: Performed By: #### C BCA, CMP, 65451-2, 07060-1, 72796-6 #### [facility] ([id number]) [address] [place] [address] 89664 AST [Catalytic activity/Vol] 20 U/L Normal 0-41 [facility] Comment on above: Performed By: #### C BCA, CMP, 51623-5, 22148-2, 98226-6 #### [facility] ([id number]) [address] [place] [address] 13467 Bilirubin [Mass/Vol] 1.3 mg/dL High 0.3-1.2 [facility] Comment on above: Performed By: #### C BCA, CMP, 25718-7, 90166-1, 97524-8 #### [facility] ([id number]) [address] [place] [address] 70240 Calcium [Mass/Vol] 8.9 mg/dL Normal 8.5-10.5 [facility] Comment on above: Performed By: #### C BCA, CMP, 44326-2, 75804-3, 17625-7 #### [facility] ([id number]) [address] [place] [address] 35651 Chloride [Moles/Vol] 99 mmol/L Normal 98-109 [facility] Comment on above: Performed By: #### C BCA, CMP, 18634-4, 97600-5, 28961-6 #### [facility] ([id number]) [address] [place] [address] 43144 CO2 [Moles/Vol] 25 mmol/L Normal 22-32 [facility] Comment on above: Performed By: #### C BCA, CMP, 57527-7, 97808-5, 22271-9 #### [facility] ([id number]) [address] [place] [address] 44323 Creatinine [Mass/Vol] 1.52 mg/dL High 0.70-1.20 [facility] Comment on above: Result Comment: METH OD TRACEABLE TO IDMS STANDARD Performed By: #### C CHARI, CMP, , 14743-6, 59114-2 #### [facility] ([id number]) [address] [place] [address] 47837 GFR/1.73 sq M.predicted among non-blacks MDRD (S/P/Bld) [Vol rate/Area] 44 mL/min/{1.73_m2} Low >59 [facility] Comment on above: Result Comment: Reported eGFR is based on the CKD-EPI 2020 equation that does not use a race coefficient. Performed By: #### C CHARI, CMP, , 27530-2, 45403-7 #### [facility] ([id number]) [address] [place] [address] 24512 Glucose [Mass/Vol] 104 mg/dL High 65-99 [facility] Comment on above: Performed By: #### C CHARI, CMP, , 67715-0, 22955-0 #### [facility] ([id number]) [address] [place] [address] 37797 Potassium [Moles/Vol] 3.7 mmol/L Normal 3.5-5.0 [facility] Comment on above: Performed By: #### C CHARI, CMP, 45664-1, 31149-1, 47087-7 #### [facility] ([id number]) [address] [place] [address] 31325 Protein [Mass/Vol] 7.6 g/dL Normal 6.0-8.0 [facility] Comment on above: Performed By: #### Vijaya BCA, CMP, 27179-3, 20262-0, 84119-0 #### [facility] ([id number]) [address] [place] [address] 45910 Sodium [Moles/Vol] 138 mmol/L Normal 134-146 [facility] Comment on above: Performed By: #### Vijaya BCA, CMP, 63569-7, 81845-0, 73527-0 #### [facility] ([id number]) [address] [place] [address] 34227 Urea nitrogen [Mass/Vol] 50 mg/dL High 5-27 [facility] Comment on above: Performed By: #### Vijaya BCA, CMP, 43632-1, 59869-3, 08700-1 #### [facility] ([id number]) [address] [place] [address] 13741 Creatinine (U) [Mass/Vol]on 03-15-2024 URINE CREATININE,RDM 24.64 mg/dL Normal [facility] Comment on above: Performed By: #### Vijaya BCA, CMP, 65832-9, 52610-8, 89130-2 #### [facility] ([id number]) [address] [place] [address] 60757 DNA double strand Ab Qn (S)o n 03-15-2024 DOUBLE STRANDED DNA 9 IU/ML High <5 [facility] Comment on above: Result Comment: Interpretation-------- <5 Negative 5-9 Indeterminate >9 Positive Performed By: #### C BCA, CMP, 40798-6, 67189-1, 03713-2 #### [facility] ([id number]) [address] [place] [address] 99322 MAGNESIUMon 03-15-2024 Magnesium [Mass/Vol] 2.0 mg/dL Normal 1.8-2.6 [facility] Comment on above: Performed By: #### C BCA, CMP, 59046-4, 22786-2, 16402-0 #### [facility] ([id number]) [address] [place] [address] 10606 MICROALBUMIN - ALBUMIN:CREAT ININE URINE RATIOon 03-15-2024 ALB/CREAT RATIO NOT CALCULATED Normal 0.0-30.0 [facility] Comment on above: Result Comment: Result for Albumin/Creatinine Ratio cannot be reliably calculated because urine albumin and or urine creatinine is below the detection limit of the assay. Performed By: #### C BCA, CMP, , 67069-3, 34809-6 #### [facility] ([id number]) [address] [place] [address] 66859 Albumin DL <= 20 mg/L (U) [Mass/Vol] mg/dL Normal 0.0-1.9 [facility] Comment on above: Performed By: #### C BCA, CMP, , 43708-0, 57122-9 #### [facility] ([id number]) [address] [place] [address] 03845 URINE CREAT 22.94 mg/dL Normal [facility] Comment on above: Performed By: #### C BCA, CMP, 35355-3, 12599-5, 13764-7 #### [facility] ([id number]) [address] [place] [address] 49518 Nuclear Ab IA Ql (S)on 05-02 -2024 SANDEEP Screen w/reflex Negative Normal NEG [facility] Comment on above: Result Comment: Testing performed using multiplex flow immunoassay. Eleven different antigens associated with systemic autoimmune diseases (dsDNA,Sm,Sm/ACCOUNT SUPPORT MANAGER,ACCOUNT SUPPORT MANAGER,Chromatin, SSA,SSB,Fadia-1,Scl70,Ribo P,Centromere B) are included in this screening test. Performed By: #### C AUSTIN MARCELINO, , 94457-0, 66130-6 #### [facility] ([id number]) [address] [place] [address] 97443 POTASSIUMon 03-15-2024 Potassium [Moles/Vol] 4.1 mmol/L Normal 3.5-5.0 [facility] Comment on above: Performed By: #### C AUSTIN MARCELINO, , , 29991-5 #### [facility] ([id number]) [address] [place] [address] 40063 Procalcitonin IA [Mass/Vol]o n 03-15-2024 PROCALCITONIN 0.05 ng/mL High <0.05 [facility] Comment on above: Result Comment: NOTE <0.50 ng/mL - Low risk of severe sepsis and/or septic shock. <2.00 ng/mL - Recommend retesting within 6-24 hours. >2.00 ng/mL - High risk of sepsis and/or septic shock. Performed By: #### C AUSTIN MARCELINO, , , 66153-3 #### [facility] ([id number]) [address] [place] [address] 74341 Protein (U) [Mass/Vol]on RANDOM URINE PROTEIN <20 Normal <120 [facility] Comment on above: Performed By: #### C AUSTIN MARCELINO, , 76015-6, 68861-7 #### [facility] ([id number]) [address] [place] [address] 24884 Figueroa extractable nuclear Ig G Qn (S)on 03-15-2024 ANTI-FIGUEROA AB IGG <0.2 Normal <1.0 [facility] Comment on above: Performed By: #### C BCA, CMP, 68894-0, 17147-7, 84417-2 #### [facility] ([id number]) [address] [place] [address] 34649 URINALYSISon 03-15-2024 Bilirubin Ql (U) Negative Normal NEG [facility] Comment on above: Performed By: #### C BCA, CMP, 75078-3, 19928-3, 14241-9 #### [facility] ([id number]) [address] [place] [address] 16266 BLOOD/HGB Negative Normal NEG [facility] Comment on above: Performed By: #### C BCA, CMP, 82753-8, 89323-9, 11662-9 #### [facility] ([id number]) [address] [place] [address] [place] [address] Color (U) YELLOW Normal YELLOW [facility] Comment on above: Performed By: #### C BCA, CMP, 80940-4, 02989-3, 26002-8 #### [facility] ([id number]) [address] [place] [address] [place] [address] Glucose Ql (U) Negative Normal NEG [facility] Comment on above: Performed By: #### C BCA, CMP, 57990-9, 70060-8, 12629-2 #### [facility] ([id number]) [address] [place] [address] [place] [address] Ketones Ql (U) Negative Normal NEG [facility] Comment on above: Performed By: #### C BCA, CMP, 04845-7, 99839-8, 10683-8 #### [facility] ([id number]) [address] [place] [address] 59987 Leukocyte esterase Test strip Ql (U) Negative Normal NEG [facility] Comment on above: Performed By: #### C BCA, CMP, 88590-2, 77105-2, 64436-5 #### [facility] ([id number]) [address] [place] [address] 51307 Nitrite Ql (U) Negative Normal NEG [facility] Comment on above: Performed By: #### C BCA, CMP, 64794-5, 72338-0, 13768-2 #### [facility] ([id number]) [address] [place] [address] 22009 pH (U) 7.0 [pH] Normal 5.0-8.5 [facility] Comment on above: Performed By: #### C BCA, CMP, 80954-0, 56980-1, 68955-8 #### [facility] ([id number]) [address] [place] [address] 68497 Protein Ql (U) Negative Normal NEG [facility] Comment on above: Performed By: #### C BCA, CMP, 86963-3, 56633-7, 14888-2 #### [facility] ([id number]) [address] [place] [address] 63427 Specific gravity (U) [Rel density] 1.015 Normal 1.003-1.035 [facility] Comment on above: Performed By: #### C BCA, CMP, 24149-1, 05215-8, 75723-7 #### [facility] ([id number]) [address] [place] [address] 84021 TURBIDITY CLEAR Normal CLEAR [facility] Comment on above: Performed By: #### C BCA, CMP, 57105-7, 74422-8, 30706-5 #### [facility] ([id number]) [address] [place] [address] 21791 Urobilinogen Qn (U) 0.2 {Berna'U}/dL Normal <1.1 [facility] Comment on above: Performed By: #### C BCA, CMP, 86807-0, 78934-1, 78935-7 #### [facility] ([id number]) [address] [place] [address] 49856 URINE SODIUM,RANDOMon 2023 Sodium (U) [Moles/Vol] 114 mmol/L Normal [facility] Comment on above: Performed By: #### C BCA, CMP, 84160-5, 98579-7, 97492-2 #### [facility] ([id number]) [address] [place] [address] 48993 XR TIBIA FIBULA RT MIN 2 VWS [...] Trejo MD on 03/15/2024 7:58 AM Normal [facility] BLOOD CULTUREon 03-14-2024 Bacteria identified Aer cx Nom (Bld) CULTURE RESULTS NO GROWTH 5 DAYS Normal [facility] Bacteria identified Aer cx Nom (Bld) CULTURE RESULTS NO GROWTH 5 DAYS Normal [facility] CBC AND AUTO DIFFon 03-14-20 24 ABSOLUTE BASOPHIL 0.0 X10E9/L Normal 0.0-0.2 [facility] Comment on above: Performed By: #### C BCA, CMP, 84345-3, PINR, 90891-7, 00952-7, 79453-2, 29659-1 #### [facility] ([id number]) [address] [place] [address] 26387 ABSOLUTE NEUTROPHIL 5.0 X10E9/L Normal 1.5-6.6 [facility] Comment on above: Performed By: #### C BCA, CMP, 98973-8, PINR, 12556-2, 56106-2, 99776-8, 59154-5 #### [facility] ([id number]) [address] [place] [address] 15516 Basophils/100 WBC (Bld) 0.5 % Normal [facility] Comment on above: Performed By: #### C BCA, CMP, 82776-0, PINR, 22268-1, 66033-0, 19332-7, 35155-2 #### [facility] ([id number]) [address] [place] [address] 16021 Eosinophils (Bld) [#/Vol] 0.1 10*3/uL Normal 0.0-0.4 [facility] Comment on above: Performed By: #### C BCA, CMP, 65202-8, PINR, 58886-8, 52525-2, 13453-1, 49164-0 #### [facility] ([id number]) [address] [place] [address] 83628 Eosinophils/100 WBC (Bld) 1.4 % Normal [facility] Comment on above: Performed By: #### C BCA, CMP, 10993-2, PINR, 54616-0, 02253-3, 32415-5, 83191-0 #### [facility] ([id number]) [address] [place] [address] 17152 Erythrocyte distribution width (RBC) [Ratio] 13.7 % Normal 11.5-15.0 [facility] Comment on above: Performed By: #### C BCA, CMP, 13636-4, PINR, 39287-2, 52022-3, 67847-8, 83808-3 #### [facility] ([id number]) [address] [place] [address] 91967 Hematocrit (Bld) [Volume fraction] 37.7 % Low 39-49 [facility] Comment on above: Performed By: #### C BCA, CMP, 65044-8, PINR, 36147-9, 59579-9, 23036-5, 53897-3 #### [facility] ([id number]) [address] [place] [address] 29445 Hemoglobin (Bld) [Mass/Vol] 12.9 g/dL Low 13.0-17.0 [facility] Comment on above: Performed By: #### C BCA, CMP, 95462-9, PINR, 00442-5, 42904-0, 85505-8, 43664-5 #### [facility] ([id number]) [address] [place] [address] 02055 Lymphocytes (Bld) [#/Vol] 2.6 10*3/uL Normal 1.0-3.5 [facility] Comment on above: Performed By: #### C BCA, CMP, 95840-3, PINR, 53335-1, 21182-8, 74998-6, 68643-0 #### [facility] ([id number]) [address] [place] [address] 19342 Lymphocytes/100 WBC (Bld) 29.8 % Normal [facility] Comment on above: Performed By: #### C BCA, CMP, 76575-2, PINR, 76529-8, 68394-7, 96159-9, 70419-9 #### [facility] ([id number]) [address] [place] [address] 33911 MCH (RBC) [Entitic mass] 31.0 pg Normal 27-34 [facility] Comment on above: Performed By: #### C BCA, CMP, 67876-9, PINR, 26079-3, 20250-5, 28024-5, 80121-0 #### [facility] ([id number]) [address] [place] [address] 59337 MCHC (RBC) [Mass/Vol] 34.2 g/dL Normal 32-36 [facility] Comment on above: Performed By: #### C BCA, CMP, 29155-7, PINR, 27263-7, 19180-7, 44909-2, 34684-7 #### [facility] ([id number]) [address] [place] [address] 31394 MCV (RBC) [Entitic vol] 91 fL Normal 80-100 [facility] Comment on above: Performed By: #### C BCA, CMP, 19071-2, PINR, 95954-5, 09437-9, 54594-0, 86221-2 #### [facility] ([id number]) [address] [place] [address] 43123 Monocytes (Bld) [#/Vol] 0.9 10*3/uL Normal 0-0.9 [facility] Comment on above: Performed By: #### C BCA, CMP, 69963-0, PINR, 91715-6, 01816-8, 34327-7, 67553-2 #### [facility] ([id number]) [address] [place] [address] 63706 Monocytes/100 WBC (Bld) 10.5 % Normal [facility] Comment on above: Performed By: #### C BCA, CMP, 03352-5, PINR, 02508-3, 42166-2, 33514-1, 92414-1 #### [facility] ([id number]) [address] [place] [address] 31043 Neutrophils/100 WBC (Bld) 57.8 % Normal [facility] Comment on above: Performed By: #### C BCA, CMP, 65641-7, PINR, 97338-4, 08306-8, 92364-0, 14716-4 #### [facility] ([id number]) [address] [place] [address] Platelet mean volume (Bld) [Entitic vol] 8.2 fL Normal 7-12 [facility] Comment on above: Performed By: #### C BCA, CMP, 23257-4, PINR, 79715-0, 28812-2, 80832-5, 52934-1 #### [facility] ([id number]) [address] [place] [address] 58307 Platelets (Bld) [#/Vol] 252 10*3/uL Normal 150-450 [facility] Comment on above: Performed By: #### C BCA, CMP, 39746-0, PINR, 27821-7, 79966-4, 10975-0, 64245-7 #### [facility] ([id number]) [address] [place] [address] 47877 RBC COUNT 4.16 X10E12/L Normal 4.10-5.70 [facility] Comment on above: Performed By: #### C BCA, CMP, 42141-0, PINR, 50695-2, 35823-2, 72063-8, 13772-1 #### [facility] ([id number]) [address] [place] [address] 29285 WBC (Bld) [#/Vol] 8.7 10*3/uL Normal 4.0-11.0 [facility] Comment on above: Performed By: #### C BCA, CMP, 27325-4, PINR, 09576-8, 47989-7, 39341-6, 64004-0 #### [facility] ([id number]) [address] [place] [address] 40652 COMPREHENSIVE METABOLIC PANE Arthur 03-14-2024 Albumin [Mass/Vol] 3.9 g/dL Normal 3.2-5.3 [facility] Comment on above: Performed By: #### C BCA, CMP, 73071-1, PINR, 30413-9, 21283-0, 56540-4, 32277-4 #### [facility] ([id number]) [address] [place] [address] 64767 ALP [Catalytic activity/Vol] 103 U/L Normal 39-130 [facility] Comment on above: Performed By: #### C BCA, CMP, 35886-0, PINR, 21629-1, 74565-3, 63322-7, 56725-9 #### [facility] ([id number]) [address] [place] [address] 93670 ALT [Catalytic activity/Vol] 15 U/L Normal 0-40 [facility] Comment on above: Performed By: #### C BCA, CMP, 49754-6, PINR, 81754-0, 47995-1, 03777-1, 88811-8 #### [facility] ([id number]) [address] [place] [address] 22572 Anion gap [Moles/Vol] 11 mmol/L Normal 5-15 [facility] Comment on above: Performed By: #### C BCA, CMP, 79127-9, PINR, 85481-2, 76632-6, 06524-1, 42905-9 #### [facility] ([id number]) [address] [place] [address] 60967 AST [Catalytic activity/Vol] 21 U/L Normal 0-41 [facility] Comment on above: Performed By: #### C BCA, CMP, 52288-2, PINR, 27863-6, 53140-4, 17173-8, 96505-6 #### [facility] ([id number]) [address] [place] [address] 77826 Bilirubin [Mass/Vol] 0.9 mg/dL Normal 0.3-1.2 [facility] Comment on above: Performed By: #### C BCA, CMP, 61279-7, PINR, 59511-8, 32220-7, 85032-1, 92073-9 #### [facility] ([id number]) [address] [place] [address] 82931 Calcium [Mass/Vol] 9.5 mg/dL Normal 8.5-10.5 [facility] Comment on above: Performed By: #### C BCA, CMP, 44713-8, PINR, 97316-3, 60345-4, 65191-4, 21742-2 #### [facility] ([id number]) [address] [place] [address] 26051 Chloride [Moles/Vol] 98 mmol/L Normal 98-109 [facility] Comment on above: Performed By: #### C BCA, CMP, 51579-4, PINR, 56317-3, 28489-9, 24739-1, 97119-9 #### [facility] ([id number]) [address] [place] [address] 60142 CO2 [Moles/Vol] 27 mmol/L Normal 22-32 [facility] Comment on above: Performed By: #### C BCA, CMP, 72989-8, PINR, 34018-9, 56888-9, 56334-5, 45691-3 #### [facility] ([id number]) [address] [place] [address] 52284 Creatinine [Mass/Vol] 1.55 mg/dL High 0.70-1.20 [facility] Comment on above: Result Comment: METH OD TRACEABLE TO IDMS STANDARD Performed By: #### C BCA, CMP, 39147-2, PINR, 40847-1, 50376-0, 53486-8, 03155-0 #### [facility] ([id number]) [address] [place] [address] 63438 GFR/1.73 sq M.predicted among non-blacks MDRD (S/P/Bld) [Vol rate/Area] 43 mL/min/{1.73_m2} Low >59 [facility] Comment on above: Result Comment: Reported eGFR is based on the CKD-EPI 2020 equation that does not use a race coefficient. Performed By: #### C BCA, CMP, 44091-4, PINR, 60771-1, 36511-0, 10823-2, 60549-3 #### [facility] ([id number]) [address] [place] [address] 97421 Glucose [Mass/Vol] 119 mg/dL High 65-99 [facility] Comment on above: Performed By: #### C BCA, CMP, 38985-8, PINR, 58073-8, 26014-3, 17729-4, 42124-2 #### [facility] ([id number]) [address] [place] [address] 55885 Potassium [Moles/Vol] 4.8 mmol/L Normal 3.5-5.0 [facility] Comment on above: Performed By: #### C BCA, CMP, 08764-3, PINR, 64091-7, 31648-4, 24331-4, 63602-6 #### [facility] ([id number]) [address] [place] [address] 85683 Protein [Mass/Vol] 7.8 g/dL Normal 6.0-8.0 [facility] Comment on above: Performed By: #### C BCA, CMP, 73484-4, PINR, 01186-9, 19131-4, 32369-7, 01432-7 #### [facility] ([id number]) [address] [place] [address] 54997 Sodium [Moles/Vol] 136 mmol/L Normal 134-146 [facility] Comment on above: Performed By: #### C BCA, CMP, 03716-4, PINR, 05952-2, 61920-2, 60588-4, 06538-3 #### [facility] ([id number]) [address] [place] [address] Urea nitrogen [Mass/Vol] 56 mg/dL High 5-27 [facility] Comment on above: Performed By: #### C CHARI, AUSTIN, 62142-4, PINR, 32740-6, 76807-9, 67870-3, 71551-0 #### [facility] ([id number]) [address] [place] [address] Fibrin D-dimer DDU (PPP) [Ma ss/Vol]on 03-14-2024 D DIMER 551 ng/mL DDU High <255 [facility] Comment on above: Result Comment: Results >=255ng/mL [...] level. Performed By: #### C CHARI, AUSTIN, 87522-9, PINR, 55851-1, 85336-9, 98098-9, 05708-8 #### [facility] ([id number]) [address] [place] [address] Lactate (P shireen) [Moles/Vol]o n 03-14-2024 LACTATE W/REFLEX 1.9 mmol/L Normal 0.4-2.0 [facility] Comment on above: Result Comment: Result did not trigger repeat Lactate, re-order if needed. Performed By: #### C CHARI, CMP, 63424-7, 93702-7, 64874-7 #### [facility] ([id number]) [address] [place] [address] MAGNESIUMon 03-14-2024 Magnesium [Mass/Vol] 2.0 mg/dL Normal 1.8-2.6 [facility] Comment on above: Performed By: #### C CHARI, CMP, 50611-1, 40493-3, 68739-3 #### [facility] ([id number]) [address] [place] [address] 06367 Natriuretic peptide B [Mass/ Vol]on 03-14-2024 Natriuretic peptide B (Bld) [Mass/Vol] 74 pg/mL Normal <100.0 [facility] Comment on above: Performed By: #### C BCA, CMP, 11960-6, 15146-1, 86947-7 #### [facility] ([id number]) [address] [place] [address] 33545 PROTIME AND INRon 03-14-2024 INR Coag (PPP) [Relative time] 1.0 {INR} Normal 0.8-1.1 [facility] Comment on above: Performed By: #### C BCA, CMP, 39202-7, 96371-2, 01474-8 #### [facility] ([id number]) [address] [place] [address] 44869 PT Coag (PPP) [Time] 11.2 s Normal 9.8-13.2 [facility] Comment on above: Result Comment: NEW REFERENCE RANGE Performed By: #### C CHARI, CMP, 87212-8, 01661-3, 47302-0 #### [facility] ([id number]) [address] [place] [address] 83776 SUPERFICIAL WOUND CULTUREon 03-14-2024 Bacteria identified Aer cx Nom (Wound) GRAM STAIN 0 to 1 WHITE BLOOD CELLS/LPF 1 to 9 SQUAMOUS EPITHELIAL CELLS/LPF FEW GRAM POSITIVE COCCI MANY GRAM NEGATIVE RODS FEW GRAM POSITIVE RODS RESEMBLING DIPHTHEROIDS CULTURE RESULTS MANY MIXED GRAM POSITIVE AND GRAM NEGATIVE ORGANISMS NO STAPHYLOCOCCUS AUREUS ISOLATED NO PSEUDOMONAS AERUGINOSA ISOLATED NO BETA HEMOLYTIC STREPTOCOCCI ISOLATED Normal [facility] Comment on above: Performed By: #### 6 32-0 #### [facility] ([id number]) [address], [address] [place] [address] Troponin I.cardiac High sens itivity method [Mass/Vol]on 03-14-2024 1 HOUR TROP I, HIGH SENSITIVITY 6 ng/L Normal <21 [facility] Comment on above: Performed By: #### C BCA, CMP, 10748-2, 76579-5, 81188-2 #### [facility] ([id number]) [address] [place] [address] TROPONIN I, HIGH SENSITIVITY 6 ng/L Normal <21 [facility] Comment on above: Performed By: #### C BCA, CMP, 36913-5, 65628-5, 17118-3 #### [facility] ([id number]) [address] [place] [address] XR CHEST 1 VWon 03-14-2024 XR CHEST [...] Longo DO on 03/14/2024 5:16 PM Normal [facility] aPTT Coag (PPP) [Time]on aPTT Coag (Bld) [Time] 34 s Normal 26-37 [facility] Comment on above: Result Comment: NEW REFERENCE RANGE Performed By: #### C BCA, CMP, 49600-4, 10001-9, 99395-4 #### [facility] ([id number]) [address] [place] [id number] BASIC METABOLIC PANLon 11-28 Anion gap [Moles/Vol] 9 mmol/L Normal - [facility] Comment on above: Performed By: #### B MP #### [facility] ([id number]) [address], [address] [place] [address] Calcium [Mass/Vol] 9.8 mg/dL Normal 8.5-10.5 [facility] Comment on above: Performed By: #### B MP #### [facility] ([id number]) [address], [address] [place] [address] Chloride [Moles/Vol] 105 mmol/L Normal 98-109 [facility] Comment on above: Performed By: #### B MP #### [facility] ([id number]) [address], [address] [place] [address] CO2 [Moles/Vol] 28 mmol/L Normal 22-32 [facility] Comment on above: Performed By: #### B MP #### [facility] ([id number]) [address], [address] [place] [address] Creatinine [Mass/Vol] 1.31 mg/dL High 0.60-1.30 [facility] Comment on above: Result Comment: METH OD TRACEABLE TO IDMS STANDARD Performed By: #### B MP #### [facility] ([id number]) [address] [place] [address] GFR/1.73 sq M.predicted among non-blacks MDRD (S/P/Bld) [Vol rate/Area] 52 mL/min/{1.73_m2} Low >59 [facility] Comment on above: Result Comment: Reported eGFR is based on the CKD-EPI 2020 equation that does not use a race coefficient. Performed By: #### B MP #### [facility] ([id number]) [address], [address] [place] [address] Glucose [Mass/Vol] 139 mg/dL High 65-99 [facility] Comment on above: Performed By: #### B MP #### [facility] ([id number]) [address], [address] [place] [address] Potassium [Moles/Vol] 4.5 mmol/L Normal 3.5-5.0 [facility] Comment on above: Performed By: #### B MP #### [facility] ([id number]) [address], [address] [place] [address] Sodium [Moles/Vol] 142 mmol/L Normal 134-146 [facility] Comment on above: Performed By: #### B MP #### [facility] ([id number]) [address], [address] [place] [address] Urea nitrogen [Mass/Vol] 35 mg/dL High 5-27 [facility] Comment on above: Performed By: #### B MP #### [facility] ([id number]) [address], [address] [place] [address] Basic Metabolic Panelon 11-14 Anion gap [Moles/Vol] 9 mmol/L 5 - 15 mmol/L [facility] Calcium [Mass/Vol] 9.8 mg/dL 8.5 - 10. 5 mg/dL [facility] Chloride [Moles/Vol] 105 mmol/L 98 - 10 9 mmol/L [facility] CO2 [Moles/Vol] 28 mmol/L 22 - 32 mmol/L [facility] Creatinine [Mass/Vol] 1.31 mg/dL High 0.60 - 1.30 mg/dL [facility] Comment on above: METHOD TRACEABLE TO IDCO STANDARD eGFR (CKD-EPI)non-race dependent 52 Low - PINF [facility] Comment on above: Reported eGFR is based on the CKD-EPI 2020 equation that does not use a race coefficient. Glucose [Mass/Vol] 139 mg/dL High 65 - 99 mg/dL [facility] Interpretation and review of laboratory results Abnormal [facility] Potassium [Moles/Vol] 4.5 mmol/L 3.5 - 5.0 mmol/L [facility] Sodium [Moles/Vol] 142 mmol/L 134 - 146 mmol/L [facility] Urea nitrogen [Mass/Vol] 35 mg/dL High 5 - 27 mg/dL [facility] POCT Glucose Fingerstickon 0 11-28-2023 Glucose [Mass/Vol] 137 mg/dL Abnormal 65 - 99 mg/dL [facility] Interpretation and review of laboratory results Abnormal [facility] CBC AND AUTO DIFFon 11-10-20 ABSOLUTE BASOPHIL 0.1 X10E9/L Normal 0.0-0.2 [facility] Comment on above: Performed By: #### C BCA, CMP, 95431-7, 15013-7, 94654-7 #### [facility] ([id number]) [address] [place] [address] 06951 ABSOLUTE NEUTROPHIL 3.5 X10E9/L Normal 1.5-6.6 [facility] Comment on above: Performed By: #### Vijaya BCA, CMP, 12876-7, 09177-0, 39767-2 #### [facility] ([id number]) [address] [place] [address] 98389 Basophils/100 WBC (Bld) 0.8 % Normal [facility] Comment on above: Performed By: #### C BCA, CMP, 52860-3, 73019-5, 49666-5 #### [facility] ([id number]) [address] [place] [address] 73832 Eosinophils (Bld) [#/Vol] 0.2 10*3/uL Normal 0.0-0.4 [facility] Comment on above: Performed By: #### Vijaya BCA, CMP, 17615-8, 70649-9, 47302-5 #### [facility] ([id number]) [address] [place] [address] 24671 Eosinophils/100 WBC (Bld) 2.5 % Normal [facility] Comment on above: Performed By: #### C BCA, CMP, 94496-0, 69982-1, 25967-1 #### [facility] ([id number]) [address] [place] [address] 09519 Erythrocyte distribution width (RBC) [Ratio] 13.9 % Normal 11.5-15.0 [facility] Comment on above: Performed By: #### C BCA, CMP, 00119-9, 89507-3, 24239-5 #### [facility] ([id number]) [address] [place] [address] 02140 Hematocrit (Bld) [Volume fraction] 43.0 % Normal 39-49 [facility] Comment on above: Performed By: #### C BCA, CMP, 44042-7, 26390-8, 71272-2 #### [facility] ([id number]) [address] [place] [address] 52513 Hemoglobin (Bld) [Mass/Vol] 14.6 g/dL Normal 13.0-17.0 [facility] Comment on above: Performed By: #### C BCA, CMP, 22560-2, 69597-2, 46362-8 #### [facility] ([id number]) [address] [place] [address] 24696 Lymphocytes (Bld) [#/Vol] 2.7 10*3/uL Normal 1.0-3.5 [facility] Comment on above: Performed By: #### C BCA, CMP, 47918-7, 64772-9, 88671-7 #### [facility] ([id number]) [address] [place] [address] 10641 Lymphocytes/100 WBC (Bld) 38.0 % Normal [facility] Comment on above: Performed By: #### C BCA, CMP, 82736-5, 90876-6, 16968-7 #### [facility] ([id number]) [address] [place] [address] 88418 MCH (RBC) [Entitic mass] 31.0 pg Normal 27-34 [facility] Comment on above: Performed By: #### C BCA, CMP, 43510-4, 33358-3, 82765-4 #### [facility] ([id number]) [address] [place] [address] 55375 MCHC (RBC) [Mass/Vol] 33.8 g/dL Normal 32-36 [facility] Comment on above: Performed By: #### C BCA, CMP, 49303-4, 46942-8, 29196-6 #### [facility] ([id number]) [address] [place] [address] 51482 MCV (RBC) [Entitic vol] 92 fL Normal 80-100 [facility] Comment on above: Performed By: #### C BCA, CMP, 63216-5, 06357-8, 93037-5 #### [facility] ([id number]) [address] [place] [address] 80683 Monocytes (Bld) [#/Vol] 0.8 10*3/uL Normal 0-0.9 [facility] Comment on above: Performed By: #### C BCA, CMP, 99647-2, 28591-2, 21776-3 #### [facility] ([id number]) [address] [place] [address] 07210 Monocytes/100 WBC (Bld) 10.5 % Normal [facility] Comment on above: Performed By: #### Vijaya BCA, CMP, 82009-8, 16235-4, 34553-9 #### [facility] ([id number]) [address] [place] [address] 68462 Neutrophils/100 WBC (Bld) 48.2 % Normal [facility] Comment on above: Performed By: #### C BCA, CMP, 08561-1, 14845-9, 13492-6 #### [facility] ([id number]) [address] [place] [address] 16981 Platelet mean volume (Bld) [Entitic vol] 8.5 fL Normal 7-12 [facility] Comment on above: Performed By: #### C BCA, CMP, 27812-9, 99024-3, 45513-3 #### [facility] ([id number]) [address] [place] [address] 28763 Platelets (Bld) [#/Vol] 238 10*3/uL Normal 150-450 [facility] Comment on above: Performed By: #### C BCA, CMP, 51832-5, 10245-4, 51355-9 #### [facility] ([id number]) [address] [place] [address] 13941 RBC COUNT 4.70 X10E12/L Normal 4.10-5.70 [facility] Comment on above: Performed By: #### C BCA, CMP, 09390-7, 49696-4, 03418-1 #### [facility] ([id number]) [address] [place] [address] 46850 WBC (Bld) [#/Vol] 7.2 10*3/uL Normal 4.0-11.0 [facility] Comment on above: Performed By: #### C BCA, CMP, 14814-8, 14048-1, 23079-4 #### [facility] ([id number]) [address] [place] [address] 12815 COMPREHENSIVE METABOLIC PANE [facility] 11-10-2023 Albumin [Mass/Vol] 4.4 g/dL Normal 3.2-5.3 [facility] Comment on above: Performed By: #### C BCA, CMP, 79944-3, 63540-3, 20696-9 #### [facility] ([id number]) [address] [place] [address] 11800 ALP [Catalytic activity/Vol] 93 U/L Normal 39-130 [facility] Comment on above: Performed By: #### C BCA, CMP, 87128-5, 38116-8, 65142-4 #### [facility] ([id number]) [address] [place] [address] 97079 ALT [Catalytic activity/Vol] 13 U/L Normal 0-40 [facility] Comment on above: Performed By: #### C BCA, CMP, 93643-6, 08397-9, 61491-5 #### [facility] ([id number]) [address] [place] [address] 99382 Anion gap [Moles/Vol] 5 mmol/L Normal 5-15 [facility] Comment on above: Performed By: #### C BCA, CMP, 51504-2, 33127-3, 52282-2 #### [facility] ([id number]) [address] [place] [address] 87416 AST [Catalytic activity/Vol] 25 U/L Normal 0-41 [facility] Comment on above: Performed By: #### C BCA, CMP, 66760-0, 73383-4, 26068-2 #### [facility] ([id number]) [address] [place] [address] 08504 Bilirubin [Mass/Vol] 1.1 mg/dL Normal 0.3-1.2 [facility] Comment on above: Performed By: #### C BCA, CMP, 28408-1, 81086-8, 65194-2 #### [facility] ([id number]) [address] [place] [address] 36613 Calcium [Mass/Vol] 9.5 mg/dL Normal 8.5-10.5 [facility] Comment on above: Performed By: #### C BCA, CMP, 48321-6, 57246-4, 11925-0 #### [facility] ([id number]) [address] [place] [address] 76558 Chloride [Moles/Vol] 104 mmol/L Normal 98-109 [facility] Comment on above: Performed By: #### C BCA, CMP, 67570-0, 94689-7, 08740-4 #### [facility] ([id number]) [address] [place] [address] 30025 CO2 [Moles/Vol] 27 mmol/L Normal 22-32 [facility] Comment on above: Performed By: #### C BCA, CMP, 06245-1, 91468-6, 26798-9 #### [facility] ([id number]) [address] [place] [address] 14056 Creatinine [Mass/Vol] 1.32 mg/dL High 0.70-1.20 [facility] Comment on above: Result Comment: METH OD TRACEABLE TO IDMS STANDARD Performed By: #### C BCA, CMP, 70491-8, 37593-5, 65882-0 #### [facility] ([id number]) [address] [place] [address] 56372 GFR/1.73 sq M.predicted among non-blacks MDRD (S/P/Bld) [Vol rate/Area] 52 mL/min/{1.73_m2} Low >59 [facility] Comment on above: Result Comment: Reported eGFR is based on the CKD-EPI 2020 equation that does not use a race coefficient. Performed By: #### C BCA, CMP, 51043-5, 01889-5, 97172-9 #### [facility] ([id number]) [address] [place] [address] 75682 Glucose [Mass/Vol] 101 mg/dL High 65-99 [facility] Comment on above: Performed By: #### C BCA, CMP, 87304-6, 37744-9, 59375-7 #### [facility] ([id number]) [address] [place] [address] 42354 Potassium [Moles/Vol] 4.9 mmol/L Normal 3.5-5.0 [facility] Comment on above: Performed By: #### C BCA, CMP, 72032-2, 97627-7, 01207-0 #### [facility] ([id number]) [address] [place] [address] 08731 Protein [Mass/Vol] 8.5 g/dL High 6.0-8.0 [facility] Comment on above: Performed By: #### C BCA, CMP, 45976-2, 13972-4, 16736-3 #### [facility] ([id number]) [address] [place] [address] 09440 Sodium [Moles/Vol] 136 mmol/L Normal 134-146 [facility] Comment on above: Performed By: #### C BCA, CMP, 40749-7, 48409-0, 34868-0 #### [facility] ([id number]) [address] [place] [address] 85386 Urea nitrogen [Mass/Vol] 28 mg/dL High 5-27 [facility] Comment on above: Performed By: #### C BCA, CMP, 87263-1, 48026-7, 89080-9 #### [facility] ([id number]) [address] [place] [address] 91212 MAGNESIUMon 11-10-2023 Magnesium [Mass/Vol] 1.9 mg/dL Normal 1.8-2.6 [facility] Comment on above: Performed By: #### C BCA, CMP, 86597-2, 93673-0, 10977-3 #### [facility] ([id number]) [address] [place] [address] 03938 Natriuretic peptide B [Mass/ Vol]on 11-10-2023 Natriuretic peptide B (Bld) [Mass/Vol] 63 pg/mL Normal <100.0 [facility] Comment on above: Performed By: #### C BCA, CMP, 71034-2, 60972-6, 48272-0 #### [facility] ([id number]) [address] [place] [address] 42560 TROPONIN Ion 12-28-2023 Troponin I.cardiac [Mass/Vol] 0.03 ng/mL Normal 0.00-0.04 [facility] Comment on above: Performed By: #### C CHARI, CMP, 82814-3, 93843-9, 32871-7 #### [facility] ([id number]) [address] [place] [address], [place] [address] XR CHEST 1 VWon 11-10-2023 XR CHEST [...] Raghavendra Ovalle on 11/10/2023 4:02 PM Normal [facility] Vital Signs Date Time Vital Sign Value Performing Clinician Facility 11-28-2023 14:41-0500 Diastolic blood pressure 82 mm[Hg] Mata Sepulveda PA-C Work Phone: [facility] 11-28-2023 14:41-0500 Systolic blood pressure 132 mm[Hg] Mata Sepulveda PA-C Work Phone: [facility] 11-28-2023 14:17-0500 Body height 177.8 cm Mata Sepulveda PA-C Work Phone: [facility] 11-28-2023 14:17-0500 Body mass index (BMI) [Ratio] 26.83 kg/m2 Mata Sepulveda PA-C Work Phone: [facility] 11-28-2023 14:17-0500 Body temperature 97 [degF] M[facility]veda [facility]-C [facility] 11-28-2023 14:17-0500 Body weight 84.82 kg Mata [facility]ulveda PA-C [facility] [facility] 11-28-2023 14:17-0500 Heart rate 86 /min Mata Sepulveda PA-C Work Phone: [facility] [employer] [facility] 11-10-2023 13:34-0500 Body height 177.8 cm Mata Sepulveda PA-C [facility] Phone[facility] 11-10-2023 13:34-0500 Body mass index (BMI) [Ratio] 28.55 kg/m2 Mata Sepulveda PA-C Work Phone: [facility] [employer] [facility] 11-10-2023 13:34-0500 Body temperature 97.11 [degF] Mata Sepulveda PA-C Work Phone: [facility] [employer] [facility] 11-10-2023 13:34-0500 Body weight 90.27 kg Mata Sepulveda PA-C [facility] 11-10-2023 13:34-0500 Diastolic blood pressure 74 mm[Hg] Mata Sepulveda PA-C Work Phone: [facility] 11-10-2023 13:34-0500 Heart rate 66 /min Mata Sepulveda PA-C Work [facility] 11-10-2023 13:34-0500 SaO2% (BldA) [Mass fraction] 94 % aMta Sepulveda PA-C Work Phone: [facility] 11-10-2023 13:34-0500 Systolic blood pressure 136 mm[Hg] Mata Sepulveda PA-C Work Phone: [facility] [employer] [facility] Encounters Encounter Date Encounter Type Care Provider Facility Start: 04-30-2024 End: 04-30-2024 ambulatory LAILA SINGLETON Not Available Start: 04-27-2024 End: 04-27-2024 ambulatory VINCENT ROSADO [facility] Start: 03-30-2024 End: 03-30-2024 ambulatory VINCENT ROSADO [facility] Start: 03-15-2024 End: 03-19-2024 ambulatory [facility] Start: 03-15-2024 End: 03-19-2024 ambulatory [facility] Start: 03-15-2024 End: 03-15-2024 ambulatory [facility] Start: 03-14-2024 End: 03-19-2024 Emergency department patient visit GABY MICHAEL [facility] Start: 03-14-2024 End: 03-19-2024 ambulatory [facility] Start: 01-21-2024 Refill Mata Sepulveda PA-C Work Phone: [facility]Ru Mark MD Start: 11-28-2023 End: 11-29-2023 ambulatory [facility] Start: 11-28-2023 End: 11-28-2023 ambulatory [facility] Start: 11-28-2023 Encounter for genera l adult medical examination without abnormal findings [facility] Start: 11-28-2023 End: 11-28-2023 Patient encounter procedure Mata Sepulveda PA-C Work Phone: [facility]Ru Mark MD Comment on above: Medicare annual well ness visit, subsequent (Primary Dx); Essential hypertension; Encephalopathy; Stage 3b chronic kidney disease ([facility]); Bilateral leg edema; Mixed hyperlipidemia; Dementia with behavioral disturbance ([facility]); Other specified abnormal findings of blood chemistry; Severe Alzheimer's dementia without behavioral disturbance, psychotic disturbance, mood disturbance, or anxiety, unspecified timing of dementia onset ([facility]); Mild pulmonary hypertension ([facility]); Atherosclerotic PVD with intermittent claudication ([facility]) Start: 11-15-2023 Refill Mata Sepulveda PA-C Work Phone: [facility]Ru Mark MD Start: 11-10-2023 End: 11-11-2023 Emergency department patient visit [place] [facility] Start: 11-10-2023 End: 11-10-2023 ambulatory [facility] Fernanda SEPULVEDA [facility] Start: 11-10-2023 End: 11-10-2023 Office outpatient visit 25 minutes Mata Sepulveda PA-C Work Phone: [facility]uR Mark MD Comment on above: Bilateral leg [...] 11-28-2024 Adult BMI Screening Adult BMI Screening [facility] Start: 11-28-2024 Depression Screening Depression Screening [facility] Start: 11-28-2024 Fall Risk Screening Fall Risk Screening [facility] Start: 11-28-2024 Medicare Annual Wellness Visit Medicare Annual Wellness Visit [facility] Start: 11-28-2024 Tobacco Screening Tobacco Screening [facility] Start: 11-10-2024 Adult BMI Screening Adult BMI Screening [facility] Start: 11-10-2024 Tobacco Screening Tobacco Screening [facility] Start: 05-05-2024 Depression Screening Depression Screening [facility] Start: 03-01-2024 End: 03-01-2024 Patient encounter procedure 03/01/2024 2:00 PM EDT Office Visit [facility]Ru Mark MD [address] [place] [phone] Mata Sepulveda PA-C [address] [place] [address] [facility]Ru Mark MD Start: 11-28-2023 End: 11-28-2023 Patient encounter procedure 11/28/2023 2:00 PM EST Office Visit [facility]Ru Mark MD [address] [place] [phone] Mata Sepulveda PA-C [address] [place] [address] [facility]Ru Mark MD Start: 11-25-2023 Medicare Annual Wellness Visit Medicare Annual Wellness Visit [facility] Start: 07-15-2023 COVID-19 Vaccine ( season) COVID-19 Vaccine ( season) [facility] Start: 10-22-2022 Fall Risk Screening Fall Risk Screening [facility] Start: 1985 Administration of varicella zoster vaccine Zoster (Shingles) Vaccine (1 of 2) [facility] Start: 1954 DTaP,Tdap and Td Vaccines (1 - Tdap) DTaP,Tdap and Td Vaccines (1 - Tdap) [facility] Start: 1953 Adult BMI Follow Up Plan Adult BMI Follow Up Plan [facility] Immunizations Immunization Date Immunization Notes Care Provider Fa cility 09-15-2022 Covid-19, Mrna, Lnp- s, Bivalent, Pf, 50mcg/0.5ml or 25mcg/0.25ml Mata Sepulveda PA-C Work Phone: [facility] 09-15-2022 Covid-19, Mrna, Lnp- s, Pf, 50mcg/0.5ml Dose Mata Sepulveda PA-C Work Phone: [facility] 09-15-2022 Influenza Vaccine, Quadrivalent, Adjuvanted Mata MADISON-C Work Phone: [facility] 09-15-2022 Influenza, High-dose , Quadrivalent Mata MADISON-C Work Phone: [facility] 10-29-2021 COVID-19, mRNA, LNP- S, PF, 100mcg/0.5mL Dose Mata MADISON-C Work Phone: [facility] 08-25-2021 Influenza Vaccine, Quadrivalent, Adjuvanted Mata MADISON-C Work Phone: [facility] 08-25-2021 influenza virus vacc ine, unspecified formulation Mata MADISON-C Work Phone: [facility] 07-23-2020 influenza virus vacc ine, unspecified formulation Mata MADISON-C Work Phone: [facility] 07-23-2020 Influenza, High-dose , Quadrivalent Mata MADISON-C Work Phone: [facility] 09-11-2019 influenza, injectabl e, quadrivalent, contains preservative Mata MADISON-C Work Phone: [facility] 09-11-2019 influenza, injectabl e, quadrivalent, preservative free Mata MADISON-C Work Phone: [facility] 11-22-2017 pneumococcal conjuga te vaccine, 13 valent Mata MADISON-C Work Phone: [facility] 08-16-2017 influenza, high dose seasonal, preservative-free Mata MADISON-C Work Phone: [facility] 03-15-2017 pneumococcal polysaccharide vaccine, 23 valent Mata Sepulveda PA-C Work Phone: [facility] 10-05-2016 influenza, high dose seasonal, preservative-free Mata MADISON-C Work Phone: [facility] 09-03-2015 influenza, high dose seasonal, preservative-free Mata MADISON-C [facility] 09-[facility]-2015 influenza, seasonal, injectable Mata MADISON-C [facility] 08-30-2011 influenza virus vacc ine, whole virus Mata MADISON-C [facility] 09-01-2009 influenza virus vacc ine, whole virus Mata MADISON-C [facility] Payers Date Payer Category Payer Medicare [employer] MED[employer] UHC MEDICARE ADVANTAGE PPO [id number] 2022-[facility] [phone] [address] [address] [place] [address] [id number] 2022 Medicare [id number] 1935 Unknown [id number] 2..840.1.733258.3.579.2. 1285 1935 Unknown [id number] 2.16.840.1.723464.3.579.2. 1285 1935 Unknown [id number] 2.16.840.1.833826.3.579.2. 1285 1935 Unknown [id number] 2.16.840.1.934809.3.579.2. 1285 1935 Unknown [id number] 2.16.840.1.308268.3.579.2. 1285 1935 Unknown [id number] 2.16.840.1.814509.3.579.2. 1285 1935 Unknown [id number] 2.16.840.1.180378.3.579.2. 12855 Unknown [id number] 2.16.840.1.269512.3.579.2. 128 1935 Unknown [id number] 2.16.840.1.666244.3.579.2. 1286 1935 Unknown [id number] 2.16.840.1.318860.3.579.2. 1286 1935 Unknown [id number] 2.16.840.1.698707.3.579.2. 128 1935 Unknown [id number] 2.16.840.1.085985.3.579.2. 128 1935 Unknown [id number] 2.16.840.1.194726.3.579.2. 1286 1935 Unknown [id number] 2.16.840.1.946529.3.579.2. 128 1935 Unknown [id number] 2.16.840.1.813416.3.579.2. 1259 1935 Unknown [id number] 2.16.840.1.628244.3.579.2. 1259 Social History Date Type Detail Facility Start: 11-25-[address] [facility] Ex-smoker [facility] History of tobacco use Current smoker [facility] History of tobacco use Cigarette Smoker P [facility] Start: 11-25-2022 Tobacco use and exposure Smokeless tobacco non-user [facility] Start: 11-10-2023 End: 11-28-2023 Alcohol intake Current drinker of alcohol (finding) [facility] Start: 12-25-2020 End: 11-10-2023 History of Social function [facility] Start: 12-25-2020 End: 11-10-2023 Tobacco use panel [facility] Adolescent depressio n screening assessment 0 [facility] Start: 1935 Sex Assigned At Not on file P [facility] Medical Equipment Procedure Code Equipment Code Equipment Origin al Text Equipment Identifier Dates Lens Iol Ultrase rt 22.5d - [id number] - [id number] Start: 01-11-2019 Goals Date Patient Goal [...] 2 years ago when memory declined after [place], MIGUEL, Hyperkalemia of 6.6 when he was admitted to [facility]. 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 Overall he has a gradually declining memory. Behaviors gradually worse. wants to keep him at the house. Giving seroquel 50mg at night and 25mg in AM. He has had mild, chronic leg swelling wax/wane. gives cardiac diet. He was taking lasix 20mg prn. 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 Wants to keep him comfortable. His [...] of losing house if he goes into group home. Taking lasix 20mg. Sven +1 LE edema present. Past Medical History Past Medical History: Diagnosis Date Abnormal ECG 07/2021 Old anterior [place]. Presumed 02/2021 when speed walking. Acute renal failure ([facility] 06/13/2022 Hyperlipidemia Hypertension Peripheral vascular disease ([facility]) Dr. Gee at [facility]- md pletal Visual impairment wears glasses Wears dentures upper and lower Wears glasses Zoster 08/2017 Past Surgical History Past Surgical History: Procedure Laterality Date CATARACT EXTRACTION COLONOSCOPY Dr. Madera. Completed last c-scope PHACO KELMAN I IMPLANT INTRAOCULAR LENS Right 01/11/2019 Performed by Yee Figueroa MD at [facility] Family History Family History Problem Relation Age [...] Fingerstick 4. Stage 3b chronic kidney disease ([facility]) - Basic Metabolic Panel; Future 5. Bilateral leg edema - furosemide (LASIX) 20 mg tablet; Take 2 tablets (40 mg total) by mouth daily as needed (swelling of ankles). Dispense: 60 tablet; Refill: 2 - Incontinence supply 6. Mixed hyperlipidemia 7. Dementia with behavioral disturbance ([facility]) - POCT Glucose Fingerstick 8. Other specified abnormal findings of blood chemistry - POCT Glucose Fingerstick 9. Severe Alzheimer's dementia without behavioral disturbance, psychotic disturbance, mood disturbance, or anxiety, unspecified timing of dementia onset ([facility]) 10. Mild pulmonary hypertension ([facility]) 11. Atherosclerotic PVD with intermittent claudication ([facility]) Medications Discontinued During This Encounter Medication Reason furosemide (LASIX) 20 mg tablet Reorder Patient Instructions BMP today Return to lasix up to 40mg daily Incontinence supplies-depends Mata Sepulveda PA-C 11/28/23 1528 documented in this encounter [facility] Instructions 11-28-2023 Patient Instructions Note Date & Type Note Facility 11-28-2023 Instructions Mata Sepulveda PA-C - 11/28/2023 2:00 PM EST BMP today Return to lasix up to 40mg daily Incontinence supplies-depends End of life care, declines hospice, home health 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 documented in this encounter [facility] History of Present illness Narrative 11-10-2023 [...] 2 years ago when memory declined after [place], MIGUEL, Hyperkalemia of 6.6 when he was admitted to [facility]. 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 Overall he has a gradually declining memory. Behaviors gradually worse. wants to keep him at the house. Giving seroquel 50mg at night and 25mg in AM. He has had mild, chronic leg swelling wax/wane. gives cardiac diet. He was taking lasix 20mg prn. 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 Wants to keep him comfortable. 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 Presumed 02/2021 when speed walking. Acute renal failure ([facility]) 06/13/2022 Hyperlipidemia Hypertension Peripheral vascular disease ([facility]) Dr. Gee at [facility]- md pletal Visual impairment wears glasses Wears dentures upper and lower Wears glasses Zoster 08/2017 Past Surgical History Past Surgical History: Procedure Laterality Date CATARACT EXTRACTION COLONOSCOPY Dr. Madera. Completed last c-scope PHACO KELMAN I IMPLANT INTRAOCULAR LENS Right 01/11/2019 Performed by Yee Figueroa MD at [facility] Family History Family History Problem Relation [...] PA-C 11/10/23 1434 documented in this encounter [facility] Instructions 11-10-2023 Patient Instructions Note Date & Type Note Facility 11-10-2023 Instructions Mata Sepulveda PA-C - 11/10/2023 1:30 PM EST DX Acute on chronic chf, fluid overload. Chest pain this am. Cannot r/o an event. To ED for EKG, troponins, BNP, D-dimer. May need admitted. Concern for renal failure, recurrent. Pt needs diuresis. documented in this encounter [facility] [...] Unspecified encephalopathy Stage 3b chronic kidney disease ([facility]) Bilateral leg edema Edema Mixed hyperlipidemia Dementia with behavioral disturbance ([facility]) Other specified abnormal findings of blood chemistry Severe Alzheimer's dementia without behavioral disturbance, psychotic disturbance, mood disturbance, or anxiety, unspecified timing of dementia onset ([facility]) Mild pulmonary hypertension (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 DNR Physician Order 04/12/2023 6:39 AM Latest Code Status on File Code Status Date Activated Date Inactivated Comments DNR [facility] (DNRCC) [place] 03/30/2023 2:46 PM 023 7:19 PM Code [...] Care Teams (unrecognized sec tion and content) Director State Pharmacy Relationship Specialty Start Date End Date Mata Sepulveda PA-C [address] [place] [address] PCP - General Physician [employer] Work[employer] 07/16/22 Director State Pharmacy Relationship Specialty Start Date End Date Mata Sepulveda PA-C [address] [place] [address] PCP - General Physician [employer] Worker 07/16/22 Director State Pharmacy Relationship Specialty Start Date End Date Mata Sepulveda PA-C [address] [place] [address] PCP - General Physician [employer] Worker 07/16/22 Director State Pharmacy Relationship Specialty Start Date End Date Mata Sepulveda PA-C [address] [place] [address] PCP - General Physician [employer] Worker 07/16/22 (unrecognized sect ion and content) No Status Records FoundNo Status Records FoundNo Status Records FoundNo Status Records Found INFORMATION SOURCE (unrecogn ized section and content) DATE CREATED AUTHOR 03/16/2024 [facility] DATE CREATED AUTHOR AUTHOR'S ORGANIZ ATION 03/18/2024 [facility] DATE CREATED AUTHOR AUTHOR'S ORGANIZ ATION 04/28/2024 [facility] DATE CREATED AUTHOR AUTHOR'S ORGANIZ ATION 05/01/2024 [facility] EPIC FOR RECORDS PERTAINING TO PATIENTS WHO ARE [...] BE BASED ON THE PRIMARY CLINICAL RECORDS. [facility]. provides no warranty or guarantee of the accuracy or completeness of information in this document.
[2024-05-02 08:35] LABS: Basophils Percent Auto 0.5 % (0.2-2.0); Eosinophils Absolute Auto 0.2 10^3/uL (0.0-0.7); Eosinophils Percent Auto 2.5 % (0.9-7.0); Hematocrit 36.3 % (42.0-54.0); Immature Granulocytes Abs Auto 0.04 10^3/uL (0.00-0.03); Immature Granulocytes Pct Auto 0.5 % (0.0-0.5); Lymphocytes Absolute Auto 2.8 10^3/uL (1.2-3.8); Lymphocytes Percent Auto 36.3 % (20.5-60.0); Mean Corpuscular HGB Conc 33.1 g/dL (29.9-35.2); Mean Corpuscular Hemoglobin 30.9 pg (25.9-34.0); Mean Corpuscular Volume 93.6 fL (80.0-94.0); Mean Platelet Volume 10.7 fL (9.5-13.5); Monocytes Absolute Auto 0.7 10^3/uL (0.3-0.8); Monocytes Percent Auto 9.3 % (1.7-12.0); Neutrophils Absolute Auto 3.9 10^3/uL (1.4-6.5); Neutrophils Percent Auto 50.9 % (43.0-75.0); Platelet Count 229 10^3/uL (150-450); Red Blood Count 3.88 10^6/uL (4.70-6.10); Red Cell Distribution Width 13.6 % (11.0-15.0); White Blood Count 7.7 10^3/uL (4.0-11.0)
[2024-05-02 09:22] LABS: Anion Gap 11.5; BUN Creatinine Ratio 24.3; Calcium 8.4 mg/dL (8.5-10.1); Carbon Dioxide 25.9 mmol/L (21.0-32.0); Chloride 108 mmol/L (98-107); Estimated GFR (African America >60 (>=60); Estimated GFR (Non-African Ame >60 (>=60); Glucose 91 mg/dL (74-106); Potassium 4.4 mmol/L (3.5-5.1); Sodium 141 mmol/L (136-145)
== END 2024-05-02 02:27 | disposition home or self-care (01) ==
LOC: LAB 02:26
PROVIDERS: PCP Family Medicine; Visit Provider Family Medicine
DX: F41.9 Anxiety disorder, unspecified (principal)
CPT/HCPCS: 36415; 80048; 85025

== ENCOUNTER 2024-05-07 11:00 | Outpatient (OUT) | payer MEDICARE, SELFPAY | END 2024-05-07 11:01 | disposition home or self-care (01) | LOC: WC 15:35 | PROVIDERS: PCP Family Medicine; Visit Provider Physician Assistant | DX: L97.812 Non-pressure chronic ulcer of other part of right lower leg with fat layer exposed (principal) | CPT/HCPCS: G0463 ==

== ENCOUNTER 2024-06-25 10:30 | Outpatient (REF) | payer MEDICARE, SELFPAY ==
[2024-06-25 12:27] LABS: Chol HDL Ratio 3.1; Cholesterol 137 mg/dL (<=200); HDL Cholesterol 44 mg/dL (40-60); LDL Cholesterol Calculated 70.2 mg/dL; Triglycerides 114 mg/dL (<=150); VLDL CHOLESTEROL 22.8 mg/dL
== END 2024-06-25 10:31 | disposition home or self-care (01) ==
LOC: LAB 10:30
PROVIDERS: PCP Family Medicine; Visit Provider Family Medicine
DX: E78.5 Hyperlipidemia, unspecified (principal)
CPT/HCPCS: 36415; 80061